=== PATIENT | female | born 1960 | race Caucasian/White ===

== ENCOUNTER 2018-01-28 17:00 | Outpatient (RCR) | payer OTHER, SELFPAY ==
--- NOTE | 2017-12-10 17:24 | HP.PTEVAL ---
Patient's Visit Information ZHAO BELTRAN is a 57 year old F referred to Physical Therapy by Levy MCCURDY with a diagnosis of Kumbar radicuopathy. Date of Evaluation: 12/10/17 Physical Therapist: Clover Cast - Visit Plan Frequency: 2x /Week Duration: 6 Weeks Plan: 2-3X/ week for centralization of symptoms starting with prone lying with pillow under abdomin and progressing extension principle and workin palak postural exercises, lifting techniques, core stability with HEP and modalities PRN - Subjective Subjective: Pt went to the Dr due to burning sensation in L knee and he had her take Advil for 2 weeks and then a steroid for 2 weeks that did not do anything. This is her next step and she has pain in her back pretty much all the time. She was on vacation all week and got a rental car and was having a lot of pain and switched cars and did ok. 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 TOday is her 2nd day back and she has burning sensation in L knee today. She walked a lot on vacation and had a lot less pain. She has no weakness in her legs. She has N&T in B legs. Pt does not sleep well when she cant get comfotable and its ususally her hips. - Pain Back pain Pain Intensity (Out of 10): 4 R leg pain Pain Intensity (Out of 10): 0 L leg pain Pain Intensity (Out of 10): 5 Comment: burning sensation - Objective Gait: walks with a normal gait pattern with slight shift in the trunk away from the L side. Posture. Prone lying X 4 min without a pillow and pt started to have burning across LB and down the L knee. Pronlying with pillow under abdomin: Immed the knee has relieved a little and some burning in the LB. After another 2 min the burning in the back has relieved a little bit. After another 3 min with a pillow under her abdomin she had not back or leg burning or pain. LE MMT: hip flex B 4/5, knee ext B 4/5, B knee flex 4/5, B hip abd 4-/5,. Able to heel and toe raise. Patellar DTR's B 2+/3. +Slump test. -SLR test. Tight gastroc complex B - Goals Goal 1:: I HEP Goal Time Frame: 4-6 Weeks Goal 2:: Centralize symptoms to be able to sit for an hour at work without having leg symptoms Goal Time Frame: 4-6 Weeks Goal 3:: Sit with upright posture during treatment sessions Goal Time Frame: 4-6 Weeks Goal 4:: Return to normal workout without pain Goal Time Frame: 4-6 Weeks - Rehabilitation Potential Rehabilitation Potential: Good - Anticipated Interventions Patient/Client Instruction: Educate patient on: Condition, Plan of Care For the Purpose of:: To decrease pain, To decrease swelling/inflammation, To increase ROM, To improve nutrient delivery to tissue, To improve muscle performance and motor function, To improve ability to perform ADL's, To increase tolerance to activity/condition/position, To improve health of tissue, To increase flexibility/ROM Therapeutic Exercise to Include: Strength training, Body mechanics, Postural training, Flexibilty training, Gait and locomotor training, Passive ROM, Active ROM, Dynamic Lumbar Stabilization, Jeet Exercises For the Purpose of:: To decrease pain, To decrease swelling/inflammation, To increase ROM, To improve nutrient delivery to tissue, To improve muscle performance and motor function, To improve ability to perform ADL's, To increase tolerance to activity/condition/position, To improve health of tissue, To decrease soft tissue restriction, To increase flexibility/ROM Manual Therapy Techniques to Include: Mobilization, Passive ROM, Soft tissue mobilization For the Purpose of:: To increase ROM, To improve nutrient delivery to tissue, To improve muscle performance and motor function, To improve performance and independence with ADL's, To decrease level of supervision to perform tasks IF ES: Yes Cryotherapy (ice pack, ice massage): Yes Thermo therapy (hot pack): Yes Ultrasound (thermal/non thermal): Yes For the Purpose of:: To decrease pain, To decrease swelling/inflammation, To increase ROM, To improve nutrient delivery to tissue Thank you for the opportunity to evaluate your patient. For Medicare and Medicare HMO plans, please review the plan of care and approve it. It will need to be FAXED BACK to us at [phone] for Medicare purposes. Please let me know if there are questions or concerns regarding this plan of care. Physician Signature: Date:
--- NOTE | 2017-12-18 19:17 | HP.PTDCSUM_ITS ---
HP - PT D/C Summary It has been my pleasure to treat ZHAO BELTRAN under orders from CALLI Osorio for the diagnosis of lumbar radicuopathy for a total of 5 visit (s). Discharge Date: Please see the following information for a summary of their discharge status. - Subjective Subjective: Pt had pain all day in the R knee unless she stood up. She has some burning up the dside of her back to her mid thoracic. - Pain Back pain Pain Intensity (Out of 10): 1 R leg pain Pain Intensity (Out of 10): 0 L leg pain Pain Intensity (Out of 10): 4 - Objective Objective/Function: Pt had increase palpable muscular tightness along the R paraspinals - Goals Goal 1:: I HEP Goal 2:: Centralize symptoms to be able to sit for an hour at work without having leg symptoms Goal 3:: Sit with upright posture during treatment sessions Goal 4:: Return to normal workout without pain - Plan Plan: 2-3X/ week for centralization of symptoms starting with prone lying with pillow under abdomin and progressing extension principle and workin palak postural exercises, lifting techniques, core stability with HEP and modalities PRN - D/C Information If there are questions or concerns regarding this patient's physical therapy, please feel free to call me at [phone]. Thank you for the referral of this patient. Sincerely, Clover Cast
--- NOTE | 2018-01-28 17:30 | HP.PTDCSUM ---
HP - PT D/C Summary It has been my pleasure to treat ZHAO BELTRAN under orders from Levy Rocha, for the diagnosis of lumbar radicuopathy for a total of 15 visit(s). Discharge Date: 01/28/18 Please see the following information for a summary of their discharge status. - Subjective Subjective: Pt reports that she thinks that she can come in and do her exercises - Pain Back pain Pain Intensity (Out of 10): 1 R leg pain Pain Intensity (Out of 10): 0 L leg pain Pain Intensity (Out of 10): 0 - Overall Improvement % Improvement: 90 - Objective Objective/Function: Still very tnder lateral paraspinlas on the R t8- L2 area. - Goals Goal 1:: I HEP Goal Progress: Goal Met Goal 2:: Centralize symptoms to be able to sit for an hour at work without having leg symptoms Goal Progress: Goal Met Goal 3:: Sit with upright posture during treatment sessions Goal Progress: Goal Met Goal 4:: Return to normal workout without pain Goal Progress: Goal Met - Plan Plan: DC PT to [facility]. Pt welcome to come back if symptoms come back etc - D/C Information Discharge Comments: DC PT to [facility] If there are questions or concerns regarding this patient's physical therapy, please feel free to call me at [phone]. Thank you for the referral of this patient. Sincerely, Clover Cast
== END 2018-01-28 19:00 | disposition home or self-care (01) ==
LOC: PT 17:00
PROVIDERS: Family Provider Internal Medicine; PCP Internal Medicine; Visit Provider Physician Assistant
DX: M54.16 Radiculopathy, lumbar region (principal)
CPT/HCPCS: 97014; 97110; 97140; 97161; 97530; G0283

== ENCOUNTER 2018-04-21 10:12 | Emergency (ER) | payer OTHER, SELFPAY ==
[2018-04-21 10:20] VITALS: BP 168/72; PULSE 81; RESP 20; TEMP 36.9; O2SAT 99; BMI 20.5
--- NOTE | 2018-04-21 10:37 | ED.DCSUM_ITS ---
- ER Visit Summary Date of Service: 04/21/18 Chief Complaint: Back pain History of Present Illness: The patient is a 57 F who has lumbar back pain. She has had her intermittently for 2 weeks. Pain is in the left lumbar area. It does not radiate to the legs. Is worse with walking and sitting. No numbness or tingling. No bowel or bladder incontinence. She was diagnosed with a bulging disc about 3 months ago. She went to rehab and it felt better. After this current pain is started she went to a chiropractor. She states the pain felt worse. She has spasms in the lower back as well she tried Tylenol extra strength without any relief Physical Examination: Vital signs reviewed. HEENT exam unremarkable. Heart is regular rate and rhythm without murmurs. Lungs are clear to auscultation. Abdomen is soft and nontender. Back is not tender to palpation. Extremities reveal no edema. Skin exam normal. Neurologic exam normal. Test Results: None performed Emergency Department Course and Treatment: Patient will be treated with subcutaneous morphine. The patient may have a bulging disc that has reoccurred. I will treat her with naproxen and prednisone for home. She has a follow-up appointment with [facility] tomorrow. I do not feel the patient requires imaging as she has no trauma to the area Treatment Plan: [] Disposition: Discharge Impression: Lumbar back pain This note was generated with [employer]o dictation software. It may contain incorrect words, spelling, and punctuation that were not noted in review of the chart prior to signing ED Disposition - Plan for ED Patient: Chief Complaint: Back Referrals: Oscar Palacio MD [Primary Care Provider] -
--- NOTE | 2018-04-21 10:38 | ED.DEP ---
ED Disposition - Plan for ED Patient: Disposition: Home or Assisted Living Chief Complaint: Back Instructions: ED Neck Back Pain General Prescriptions: Naproxen [Naprosyn] 500 mg PO BID PRN #20 tab Prednisone [Deltasone] 40 mg PO DAILY #10 tab Referrals: Oscar Palacio MD [Primary Care Provider] -
[2018-04-21] MEDS: oxyCODONE 5 MG Tablet PO (11:31)
== END 2018-04-21 11:41 | disposition home or self-care (01) ==
LOC: ED 10:47
PROVIDERS: Emergency Provider Emergency Medicine; Family Provider Internal Medicine; PCP Internal Medicine
DX: M54.5 Low back pain (principal); M62.830 Muscle spasm of back
CPT/HCPCS: 99283

== ENCOUNTER → 2018-05-20 08:39 | Outpatient (CLI) | payer OTHER, SELFPAY | PROVIDERS: Family Provider Internal Medicine; PCP Internal Medicine; Visit Provider Orthopaedic Surgery | DX: M48.061 Spinal stenosis, lumbar region without neurogenic claudication (principal); Z78.0 Asymptomatic menopausal state; M85.80 Other specified disorders of bone density and structure, unspecified site | CPT/HCPCS: 77080; 78306 ==

== ENCOUNTER → 2018-06-04 16:26 | Outpatient (CLI) | payer OTHER, SELFPAY ==
[2018-06-04 17:12] LABS: Absolute Lymphocyte Count 2.16 X10^3/ul (0.83-4.51); Absolute Neutrophil Count 2.6 X10^3/uL (2.0-7.7); Basophil# 0.02 X10^3/uL; Basophil% 0.4 % (0-1); Eosinophil# 0.08 X10^3/uL; Eosinophils% 1.5 % (0-5); Hematocrit 42.2 % (37-47); Lymphocyte # 2.16 X10^3/ul (4.0); Lymphocyte % 39.6 % (19-41); Mean Corp Hgb Conc 33.2 g/gl (32-36); Mean Corpuscular Hgb 31.7 pg (27.0-32.0); Mean Corpuscular Volume 95.7 fL (81-99); Mean Platelet Vol. 11.7 fl (6.2-12.0); Monocyte# 0.62 X10^3/uL; Monocyte% 11.4 % (0-10); Neutrophil # 2.56 X10^3/uL (2.7-7.7); Neutrophil % 46.9 % (47-70); Platelet Count 266 K/mm3 (150-450); RBC Distribution Width CV 13.3 % (11.6-14.6); RBC Distribution Width SD 45.3 fl (35.1-43.9); Red Blood Count 4.41 M/mm3 (4.2-5.4); White Blood Count 5.5 K/mm3 (4.4-11.0)
[2018-06-04 17:24] LABS: POSITIVE COUNT NO; POSITIVE DIFFERENTIAL NO; POSITIVE MORPHOLOGY NO
[2018-06-04 17:45] LABS: Erythrocyte Sedimentation Rate 14 mm/hr (0-30)
[2018-06-04 17:49] LABS: Vitamin D,25 Hydroxy 76.1 ng/mL (29.95-100.01)
[2018-06-06 16:09] LABS: PROEL- A/G Ratio 1.4 (0.7-1.7); PROEL- Albumin 4.1 g/dL (2.9-4.4); PROEL- Alpha-1 Globulin 0.3 g/dL (0.0-0.4); PROEL- Alpha-2 Globulin 0.8 g/dL (0.4-1.0); PROEL- Gamma Globulin 0.9 g/dL (0.4-1.8); PROEL- TOTAL PROTEIN 7.1 g/dL (6.0-8.5)
== END ==
PROVIDERS: Family Provider Internal Medicine; PCP Internal Medicine; Visit Provider Orthopaedic Surgery
DX: M48.061 Spinal stenosis, lumbar region without neurogenic claudication (principal)
CPT/HCPCS: 36415; 82306; 84165; 85025; 85652; 86141

== ENCOUNTER → 2018-11-03 08:12 | Outpatient (CLI) | payer OTHER, SELFPAY ==
--- NOTE | 2018-11-03 08:13 | RAD_ITS ---
STUDY: X-RAY - LEFT HIP REASON FOR EXAM: Female, 57 years old. Pain. TECHNIQUE: 2 views of the hip. COMPARISON: None. FINDINGS: Normal femoral head, neck, intertrochanteric region and visualized proximal femur. Normal acetabulum. Normal hip joint. Normal visualized superior and inferior pubic rami and ischial tuberosities. Calcified phleboliths in the left hemipelvis. RAD/HIP, UNI W/ Pelvis 2-3 Views IMPRESSION: Normal x-ray examination of the hip. Electronically Signed: Duarte Lara MD at 14:44 EST , Service support ,
== END ==
PROVIDERS: Family Provider Internal Medicine; PCP Internal Medicine; Referring Provider Orthopaedic Surgery; Visit Provider Orthopaedic Surgery
DX: M25.552 Pain in left hip (principal)
CPT/HCPCS: 73502

== ENCOUNTER 2018-12-17 17:00 | Outpatient (RCR) | payer OTHER, SELFPAY ==
--- NOTE | 2018-11-05 18:03 | HP.PTEVAL_ITS ---
Patient's Visit Information ZHAO BELTRAN is a 57 year old F referred to Physical Therapy by Magdiel Gomez DO with a diagnosis of sacroilitis. Date of Evaluation: 11/05/18 Physical Therapist: ANA Cornejo - Visit Plan Frequency: 2x /Week Duration: 6 Weeks Plan: 2X/ week for 4-6 weeks for MT for leg length discrepency and then core stability and pelvic stability with HEP and may use US and MT to the L SI if really painful especially beofre mobiization with HEP - Subjective Findings: Still having problems with back... been going on for close to a year now.... in April was in ER with muscle spasms on that side of her back... they think that it is her SI joint on the L side. 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 Her current symptoms... points to L SI area. Worse standing in one postion and then tightens up across the LB. The only way to loosen it up is to keep moving. Pt has the numbness in her knees that she has once in awhile (about once a week and lasts until she gets up and moves). It always happens in a sitting position. They took an x-ray of hip area and has had x-ray of back... those were all negative. She has a slight bulging disc (L4) but said that should not be causing an issues. No issue on the stairs... 20 minutes on the TM at L4 and she thinks that that helps it. She can not sleep on either side cause it bothers it. She has popping in her LB with standing and laying on back and extending legs... - Pain L sided LB Pain Intensity (Out of 10): 5 Pain Intensity Range: 10 - Objective Gait: normal gait pattern maybe a slight hip drop on the L. LE MMT: B hip flex 4-/5, B hip abd 4/5, B hip ext 4-/5, B knee flex 4/5 and B knee ext 4/5. Pt is able to walk on heels and toes but has slight increased L sided SI pain with walking on heels on the L. R leg was longer in supine (approx 1/2 inch). Shot gun technique did not change leg length but contraction of L hip flexor and R Hamstring make B LE's equal in length. Pt had a hard time hold PT in supine... used the blood pressure stabilizer to deomnstrate proper form with PT for HEP - Goals Goal 1:: I HEP Goal Time Frame: 4-6 Weeks Goal 2:: Abolish SI pain Goal Time Frame: 4-6 Weeks Goal 3:: Increase core stability to be able to do PT with leg lifts with very li ttle mobility of the PT Goal Time Frame: 4-6 Weeks - Rehabilitation Potential Rehabilitation Potential: Good - Anticipated Interventions Patient/Client Instruction: Educate patient on: Condition, Plan of Care For the Purpose of:: To decrease pain, To decrease swelling/inflammation, To improve nutrient delivery to tissue, To improve muscle performance and motor function, To improve ability to perform ADL's, To increase tolerance to activity/condition/position, To improve performance and independence with ADL's, To decrease soft tissue restriction, To increase flexibility/ROM Therapeutic Exercise to Include: Strength training, Postural training, Flexibilty training, Neuromotor development, Active ROM, Dynamic Lumbar Stabilization For the Purpose of:: To decrease pain, To improve muscle performance and motor function, To increase tolerance to activity/condition/position, To improve performance and independence with ADL's, To improve health of tissue, To decrease soft tissue restriction, To increase flexibility/ROM Manual Therapy Techniques to Include: Mobilization, Passive ROM, Soft tissue mobilization For the Purpose of:: To decrease pain Cryotherapy (ice pack, ice massage): Yes Ultrasound (thermal/non thermal): Yes For the Purpose of:: To decrease pain, To decrease swelling/inflammation, To increase ROM, To improve nutrient delivery to tissue Thank you for the opportunity to evaluate your patient. For Medicare and Medicare HMO plans, please review the plan of care and approve it. It will need to be FAXED BACK to us at [phone] for Medicare purposes. For Medicare only, by signing this I certify the plan of care. Please let me know if there are questions or concerns regarding this plan of care. Physician Signature: Date:
--- NOTE | 2018-12-17 17:28 | HP.PTDCSUM_ITS ---
HP - PT D/C Summary It has been my pleasure to treat ZHAO BELTRAN under orders from Magdiel Gomez DO, for the diagnosis of sacroilitis for a total of 7 visit(s). Discharge Date: 12/17/18 Please see the following information for a summary of their discharge status. - Subjective Subjective: The only problem that she is having is that when she gets up in the morning she is getting some stiffness and her back tightens up in her back while she is getting ready in the morning. SHe has been sleeping with a pillow under her knees and she feels better in the morning. Then throughout the day she does not have any pain. Benito (hand outs) has given her 3 sets of exercises to do and she comes in here 3X/ week. - Pain L sided LB Pain Intensity (Out of 10): 0 - Overall Improvement % Improvement: 100 - Objective Objective/Function: Pt was able to have full bridge and able to keep hips level while lifting legs. - Goals Goal 1:: I HEP Goal Progress: Goal Met Goal 2:: Abolish SI pain Goal Progress: Goal Met Goal 3:: Increase core stability to be able to do PT with leg lifts with very little mobility of the PT Goal Progress: Goal Met - Plan Plan: DC PT to I HEP and [facility]. - D/C Information Discharge Comments: DC PT to [facility] If there are questions or concerns regarding this patient's physical therapy, margaux bacon feel free to call me at [phone]. Thank you for the referral of this patient. Sincerely, Clover Cast, ANA
== END 2018-12-17 19:00 | disposition home or self-care (01) ==
LOC: PT 17:00
PROVIDERS: Family Provider Internal Medicine; PCP Internal Medicine; Referring Provider Orthopaedic Surgery; Visit Provider Orthopaedic Surgery
DX: M46.1 Sacroiliitis, not elsewhere classified (principal)
CPT/HCPCS: 97110; 97161; 97530

== ENCOUNTER → 2019-02-10 06:41 | Outpatient (CLI) | payer OTHER, SELFPAY ==
[2019-02-10 08:55] LABS: AST(SGOT) 37 U/L (15-37); Alanine Aminotransfer ALT/SGPT 52 U/L (13-56); Albumin, Serum 3.7 g/dL (3.2-5.0); Alkaline Phosphatase 86 U/L (45-117); Bilirubin, Direct 0.15 mg/dL (0.00-0.30); Cholesterol 221 mg/dL (200); Globulin 3.8 g/dL (2.2-4.2); High Density Lipoprotein 77 mg/dL; Protein, Total 7.5 g/dL (6.4-8.2); Triglycerides 124 mg/dL; Very Low Density Lipoprotein 25 mg/dL (5-40)
== END ==
PROVIDERS: Family Provider Internal Medicine; PCP Internal Medicine; Referring Provider Internal Medicine Cardiovascular Disease; Visit Provider Internal Medicine Cardiovascular Disease
DX: E78.5 Hyperlipidemia, unspecified (principal)
CPT/HCPCS: 36415; 80061; 80076

== ENCOUNTER → 2019-06-19 07:39 | Outpatient (CLI) | payer OTHER, SELFPAY ==
[2019-05-11 15:55] VITALS: BMI 18.1
[2019-06-19 08:28] LABS: Color, Urine Yellow (Yellow); Glucose, Dipstick Normal (Normal); Ketone-Dipstick Negative (Negative); Leukocyte Esterase-Dipstick Negative /ul (Negative); Nitrite-Dipstick Negative (Negative); Occult Blood-Urine Negative /ul (Negative); Protein-Dipstick Negative (Negative); Urine Bilirubin Dipstick Negative (Negative); Urine Clarity Sl. Cloudy (Clear); Urine Urobilinogen Normal (Normal)
[2019-06-19 08:30] LABS: Absolute Lymphocyte Count 1.94 X10^3/uL (0.83-4.51); Absolute Neutrophil Count 2.8 X10^3/uL (2.0-7.7); Basophil# 0.03 X10^3/uL; Basophil% 0.6 % (0-1); Eosinophils% 1.8 % (0-5); Hematocrit 43.4 % (37-47); Hemoglobin 14.4 g/dL (12.0-15.0); Lymphocyte # 1.94 X10^3/ul (4.0); Lymphocyte % 35.7 % (19-41); Mean Corp Hgb Conc 33.2 g/dL (32-36); Mean Corpuscular Volume 96.4 fL (81-99); Mean Platelet Vol. 11.2 fl (6.2-12.0); Monocyte# 0.56 X10^3/uL; Monocyte% 10.3 % (0-10); NRBC Flagged by Analyzer 0 % (0-5); Neutrophil # 2.79 X10^3/uL (2.7-7.7); Neutrophil % 51.4 % (47-70); Platelet Count 209 K/mm3 (150-450); RBC Distribution Width CV 12.5 % (11.6-14.6); RBC Distribution Width SD 44.6 fl (35.1-43.9); White Blood Count 5.4 K/mm3 (4.4-11.0)
[2019-06-19 08:33] LABS: Erythrocyte Sedimentation Rate 6 mm/hr (0-30)
[2019-06-19 08:35] LABS: Protein:Creat Ratio 117 mg/g CRE (0-200)
[2019-06-19 08:56] LABS: ALB/GLOB Ratio 1.3 RATIO (0.9-2.4); AST(SGOT) 24 U/L (15-37); Alanine Aminotransfer ALT/SGPT 27 U/L (13-56); Albumin, Serum 3.9 g/dL (3.2-5.0); Alkaline Phosphatase 88 U/L (45-117); Anion Gap 6 (5-15); BUN 16 mg/dL (7-18); BUN/Creat Ratio 20.4 RATIO (10-20); Bilirubin, Direct 0.21 mg/dL (0.00-0.30); CRP < 2.90 mg/L (0.0-3.0); Calcium,Total 8.9 mg/dL (8.5-10.1); Chloride 108 mmol/L (98-107); Cholesterol 164 mg/dL (200); Creatinine, Serum 0.78 mg/dL (0.55-1.02); EST Glomerular Filtration Rate 79 mL/min (>60); Est Glom Filt Rate - Afr Amer 96 mL/min (>60); Globulin 3.1 g/dL (2.2-4.2); Glucose 93 mg/dL (74-106); High Density Lipoprotein 89 mg/dL; Potassium 3.6 mmol/L (3.5-5.1); Sodium Level 143 mmol/L (136-145); Triglycerides 58 mg/dL; Very Low Density Lipoprotein 12 mg/dL (5-40)
[2019-06-19 09:31] LABS: EXAGEN MAILED SPECIMEN
[2019-06-24 13:17] LABS: HLA B27 Negative (.)
== END ==
PROVIDERS: Family Provider Internal Medicine; PCP Internal Medicine; Referring Provider Internal Medicine Cardiovascular Disease; Visit Provider Internal Medicine Cardiovascular Disease
DX: M35.00 Sjogren syndrome, unspecified (principal); M18.11 Unilateral primary osteoarthritis of first carpometacarpal joint, right hand; R76.8 Other specified abnormal immunological findings in serum; E78.00 Pure hypercholesterolemia, unspecified
CPT/HCPCS: 36415; 80053; 80061; 81002; 81374; 82248; 82570; 84156; 85025; 85652; 86140

== ENCOUNTER → 2019-07-08 16:29 | Outpatient (CLI) | payer OTHER, SELFPAY ==
[2019-05-11 15:55] VITALS: BMI 18.1
--- NOTE | 2019-07-08 16:33 | RAD_ITS ---
STUDY: X-RAY - PELVIS REASON FOR EXAM: Female, 58 years old. Osteoarthritis. TECHNIQUE: One view of the pelvis was obtained. COMPARISON: None. FINDINGS: There is a non-specific bowel gas pattern. There are multiple calcified phleboliths. There is narrowing with cortical sclerosis and osteophyte formation of the sacroiliac joint consistent with mild degenerative osteoarthritic changes. Normal visualized bilateral superior and inferior pubic rami. There are mild degenerative changes of the pubic symphysis with articular narrowing and sclerosis. Normal ischial tuberosities. Normal visualized right femoral head. Normal right acetabulum. There is mild articular joint space narrowing of the right hip. Normal visualized left femoral head. Normal left acetabulum. There is mild articular joint space narrowing of the left hip. RAD/Pelvis 1 or 2 Views IMPRESSION: Mild, multilevel degenerative disease as described above. Electronically Signed: Ana Carmona MD at 2:05 EDT , Service support ,
== END ==
PROVIDERS: Family Provider Internal Medicine; PCP Internal Medicine; Referring Provider Internal Medicine Rheumatology; Visit Provider Internal Medicine Rheumatology
DX: R76.8 Other specified abnormal immunological findings in serum (principal); M18.11 Unilateral primary osteoarthritis of first carpometacarpal joint, right hand; E78.5 Hyperlipidemia, unspecified; M35.00 Sjogren syndrome, unspecified
CPT/HCPCS: 72170

== ENCOUNTER → 2020-05-05 07:12 | Outpatient (CLI) | payer OTHER, SELFPAY ==
[2019-05-11 15:55] VITALS: BMI 18.1
[2020-05-05 08:22] LABS: AST(SGOT) 39 U/L (15-37); Alanine Aminotransfer ALT/SGPT 55 U/L (13-56); Albumin, Serum 3.9 g/dL (3.2-5.0); Alkaline Phosphatase 92 U/L (45-117); Bilirubin, Direct 0.17 mg/dL (0.00-0.30); Cholesterol 176 mg/dL (200); Globulin 3.6 g/dL (2.2-4.2); High Density Lipoprotein 92 mg/dL; Protein, Total 7.5 g/dL (6.4-8.2); Triglycerides 70 mg/dL; Very Low Density Lipoprotein 14 mg/dL (5-40)
== END ==
PROVIDERS: PCP Internal Medicine; Referring Provider Internal Medicine Cardiovascular Disease; Visit Provider Internal Medicine Cardiovascular Disease
DX: E78.5 Hyperlipidemia, unspecified (principal)
CPT/HCPCS: 36415; 80061; 80076

== ENCOUNTER → 2020-06-02 10:53 | Outpatient (CLI) | payer OTHER, SELFPAY ==
[2020-05-11 15:32] VITALS: BMI 18.3
--- NOTE | 2020-06-02 10:54 | ECHOD_ITS ---
Reason For Study: MUIRMUR Procedure This was a 2D Doppler, Color Flow transthoracic echocardiogram. The exam was of adequate technical quality. Exam performed in department. Left Ventricle Normal LV size. Left ventricular systolic function is normal. The estimated ejection fraction is 60 %. Post operative septal motion. There is evidence of diastolic dysfunction. No regional wall motion abnormalities noted. Right Ventricle Normal RV size. Normal systolic function. Atria Normal left atrium. Normal right atrium. No doppler evidence for ASD. Mitral Valve Anterior leaflet diffuse mitral valve thickening. The mitral valve chordae are thickened and/or calcified. Mild mitral valve stenosis. An annuloplasty ring is noted in the mitral position. Trivial transvalvular insufficiency of the mitral valve. Tricuspid Valve Mild to moderate (1-2+) eccentric tricuspid valve insufficiency. Right ventricular systolic pressure estimated to be 30 mmHg. An annuloplasty ring is noted in the tricuspid position. Aortic Valve Trisinus/trileaflet aortic valve. Normal aortic valve. Pulmonic Valve The pulmonic valve is not well visualized. Great Vessels The aortic root is not well visualized. Pericardium/Pleural No pericardial effusion. MMode/2D Measurements & Calculations LVIDd: 4.1 cm IVSd: 0.53 cm LVOT diam: 2.0 cm LVIDs: 2.7 cm LVPWd: 0.56 cm LVOT area: 3.3 cm2 RVDd: 3.7 cm FS: 34.5 % MVA(traced): 2.6 cm2 LAV(MOD-bp): 53.7 ml LA A4 area: 17.4 cm2 LAV(MOD-bp) Indexed: 35.8 ml/m2 LAV(MOD-sp2): 59.8 ml LAV(MOD-sp4): 47.6 ml LA dimension(2D): 3.8 cm RA A4 area: 14.3 cm2 Doppler Measurements & Calculations MV E max iftikhar: 169.4 cm/sec Lat Peak E' Iftikhar: 5.4 cm/sec Med Peak E' Iftikhar: 3.7 cm/sec MV A max iftikhar: 98.5 cm/sec E/E' lat: 31.6 E/E' med: 46.0 MV E/A: 1.7 MV V2 max: 164.5 cm/sec Ao V2 max: 93.3 cm/sec LV V1 max: 87.8 cm/sec MV max P.8 mmHg Ao max P.5 mmHg LV V1 max P.1 mmHg MV V2 mean: 76.6 cm/sec Ao V2 mean: 68.6 cm/sec LV V1 mean P.7 mmHg MV mean P.0 mmHg Ao mean P.0 mmHg LV V1 mean: 63.3 cm/sec MV V2 VTI: 61.2 cm Ao V2 VTI: 21.6 cm LV V1 VTI: 19.8 cm MVA(VTI): 1.1 cm2 AAN(I,D): 3.0 cm2 ANA(V,D): 3.1 cm2 SV(LVOT): 65.1 ml TV V2 max: 111.1 cm/sec PA V2 max: 76.9 cm/sec TV max P.0 mmHg TV V2 mean: 59.8 cm/sec TV mean P.7 mmHg TR max iftikhar: 260.0 cm/sec MV P1/2t-pr_phl: 114.1 msec TR max P.0 mmHg Interpretation Summary Left ventricular systolic function is normal. The estimated ejection fraction is 60 %. Post operative septal motion. An annuloplasty ring is noted in the mitral position. Anterior leaflet diffuse mitral valve thickening. The mitral valve chordae are thickened and/or calcified. Mild mitral valve stenosis. Trivial transvalvular insufficiency of the mitral valve. An annuloplasty ring is noted in the tricuspid position. Mild to moderate (1-2+) eccentric tricuspid valve insufficiency. Right ventricular systolic pressure estimated to be 30 mmHg. There is evidence of diastolic dysfunction. Ordering Physician: Germain Villanueva Referring Physician: Oscar Palacio M.D. Performed By: Sofi Craig, ROSS, RVT
== END ==
PROVIDERS: PCP Internal Medicine; Referring Provider Internal Medicine Cardiovascular Disease; Visit Provider Internal Medicine Cardiovascular Disease
DX: R01.1 Cardiac murmur, unspecified (principal); E78.5 Hyperlipidemia, unspecified; Z98.890 Other specified postprocedural states
CPT/HCPCS: 93306

== ENCOUNTER → 2020-08-21 | Outpatient (CLI) | payer OTHER, SELFPAY ==
[2020-08-21 10:56] VITALS: BMI 17.7
== END | disposition home or self-care (01) ==
PROVIDERS: PCP Internal Medicine; Referring Provider Physician Assistant Medical; Visit Provider Physician Assistant Medical
DX: U07.1 COVID-19 (principal)
CPT/HCPCS: 87635; U0003

== ENCOUNTER 2021-05-11 16:30 | Outpatient (RCR) | payer OTHER, SELFPAY ==
[2021-02-24 13:21] VITALS: BMI 18.3
--- NOTE | 2021-03-02 19:02 | HP.PTEVAL_ITS ---
Patient's Visit Information ZHAO BELTRAN is a 60 year old F referred to Physical Therapy by Dr. Magdiel Gomez DO with a diagnosis of R trocanteric bursitis. Date of Evaluation: 03/02/21 Physical Therapist: Gabriel Luciano, PT, ATC - Visit Plan Frequency: 2-3x /Week Duration: 2-4 Weeks Plan: R LE stretching (IT band and HS's) foam roller, stick rollout, strengthening, bike, and HEP - Subjective Pt reports her R hip has been sore for approximately 3 months. Pt reports she has been adamantly working out here at [employer] and thinks this may have been the cause. Pt reports her pain is located on the lateral aspect of her R hip and will extend to the knee when the pain is bad. Pt notes she does have some LBP. Pt reports the pain mostly occurs when she performs hip abd ROM. Pt notes her pain is very bad with getting out of a car. Pt reports she had a cortizone injection 1 day ago which has helped with her knee pain, but has not influenced the hip at this time. No tingling or numbness in R LE. Pt notes she is unable to lay on her R side at night, resulting in sleep difficulty. Pt notes difficulty with pulling weeds secondary to pain. Pt reports her pain at rest is 0/10, increases to 9/10 at worst. - Pain R hip pain Pain Intensity (Out of 10): 0 Pain Intensity Range: 9 - Objective Neuro: B LE sensation is WNL to light touch. B patellar reflex 3/3. Palpation: Pt is directly sore on the R greater trochanteric bursa region, and throughout the districution of the IT band. ROM: R hip is moderately limited when compared bilaterally. All other motions are WFL at this time. MMT: B LE's are grossly 4+/5 throughout. Flexibility: Pt is moderately limited with HS/ITband flexibility (lagging 35 degrees ext) - Goals Goal 1:: Decrease R hip pain x 50% to aid with sleep Goal Time Frame: 2-4 Weeks Goal 2:: Increase R LE flexibility x 1 grade to aid with decreasing pain Goal Time Frame: 2-4 Weeks Goal 3:: Increase R hip strength to 5/5 throughout to aid with IADL's Goal Time Frame: 2-4 Weeks Goal 4:: I with HEP Goal Time Frame: 2-4 Weeks - Rehabilitation Potential Physical Therapy Diagnosis: Pt has R hip pain, weakness, and limited flexibility secondary to R hip bursitis Rehabilitation Potential: Good - Anticipated Interventions Patient/Client Instruction: Educate patient on: Condition, Plan of Care For the Purpose of:: To improve self management Therapeutic Exercise to Include: Strength training, Flexibilty training, Active ROM, Dynamic Lumbar Stabilization For the Purpose of:: To decrease pain, To increase ROM, To improve muscle performance and motor function Cryotherapy (ice pack, ice massage): Yes For the Purpose of:: To decrease pain Thank you for the opportunity to evaluate your patient. For Medicare and Medicare HMO plans, please review the plan of care and approve it. It will need to be FAXED BACK to us at [phone] for Medicare purposes. For Medicare only, by signing this I certify the plan of care. Please let me know if there are questions or concerns regarding this plan of care. Physician Signature:_ Date:
--- NOTE | 2021-05-11 17:00 | HP.PTREVAL ---
Dr. Magdiel Gomez, DO, It has been my pleasure to treat ZHAO BELTRAN over the last 9 visits for R trocanteric bursitis. Please see the progress note below for an update on the physical therapy plan of care! Subjective: I have had a pretty good week Objective/Function: R hip pain is 0/10. R LE strength is. R LE sflexibility has imptroved to WFL compared bilaterally. Pt is I with HEP Plan Plan: F/U or DC in 4 weeks Balance/Gait/Functional tests - Balance/Special Test Scores Lower Extremity Functional Score: 74 Goals Goal 1:: Decrease R hip pain x 50% to aid with sleep Goal Time Frame: 2-4 Weeks Goal Progress: Goal Met Goal 2:: Increase R LE flexibility x 1 grade to aid with decreasing pain Goal Time Frame: 2-4 Weeks Goal Progress: Goal Met Goal 3:: Increase R hip strength to 5/5 throughout to aid with IADL's Goal Time Frame: 2-4 Weeks Goal Progress: Goal Met Goal 4:: I with HEP Goal Time Frame: 2-4 Weeks Goal Progress: Goal Met Anticipated Interventions Patient/Client Instruction: Educate patient on: Condition, Plan of Care For the Purpose of:: To improve self management Therapeutic Exercise to Include: Strength training, Flexibilty training, Active ROM, Dynamic Lumbar Stabilization For the Purpose of:: To decrease pain, To increase ROM, To improve muscle performance and motor function Cryotherapy (ice pack, ice massage): Yes For the Purpose of:: To decrease pain Please do not hesitate to contact me at [phone] by phone or if you have questions or concerns regarding this new plan of care! Sincerely, Gabriel Luciano, PT, ATC
--- NOTE | 2021-07-21 14:53 | HP.PT.NRP ---
ZHAO BELTRAN was seen in my office for initial evaluation on 03/02/21. The following Plan of Care was established for this patient: Initial Frequency: 2-3x /Week Initial Duration: 2-4 Weeks Patient/Client Instruction: Educate patient on: Condition, Plan of Care For the Purpose of:: To improve self management Therapeutic Exercise to Include: Strength training, Flexibilty training, Active ROM, Dynamic Lumbar Stabilization For the Purpose of:: To decrease pain, To increase ROM, To improve muscle performance and motor function Cryotherapy (ice pack, ice massage): Yes For the Purpose of:: To decrease pain This patient was last seen in our office . Pertinent comments regarding their Physical therapy will appear below: Pt was treated for 9 PT visits secondary to R hip pain through the date of 05/11/21. Pt has not returned through todays date and is discontinued at this time. At this point I will be discontinuing this patient from physical therapy. I would be happy to see this patient again in the future if found appropriate by the physician. Thank you! Gabriel Luciano, PT, ATC Balance/Gait/Functional tests - Balance/Special Test Scores Lower Extremity Functional Score: 74
== END 2021-05-11 19:00 | disposition home or self-care (01) ==
LOC: PT 16:30
PROVIDERS: PCP Internal Medicine; Referring Provider Orthopaedic Surgery; Visit Provider Orthopaedic Surgery
DX: M70.61 Trochanteric bursitis, right hip (principal); M76.31 Iliotibial band syndrome, right leg
CPT/HCPCS: 97014; 97110; 97140; 97161; 97164; G0283

== ENCOUNTER → 2021-06-06 14:46 | Outpatient (CLI) | payer OTHER, SELFPAY ==
--- NOTE | 2021-06-06 14:47 | ECHOD_ITS ---
Reason For Study: Valve Repair Procedure This was a 2D Doppler, Color Flow transthoracic echocardiogram. The exam was of adequate technical quality. Exam performed in department. Left Ventricle Normal LV size. Left ventricular systolic function is normal. The estimated ejection fraction is 60 %. There is evidence of diastolic dysfunction. Right Ventricle Normal RV size. Normal systolic function. Atria The left atrium is mildly enlarged. Normal right atrium. No doppler evidence for ASD. Mitral Valve Anterior leaflet diffuse mitral valve thickening. Mitral valve doming/Hockey Sticking. The mitral valve chordae are thickened and/or calcified. An annuloplasty ring is noted in the mitral position. Trivial transvalvular insufficiency of the mitral valve. Tricuspid Valve Moderate (2+) eccentric tricuspid valve insufficiency. Right ventricular systolic pressure estimated to be 36 mmHg. An annuloplasty ring is noted in the tricuspid position. Aortic Valve Trisinus/trileaflet aortic valve. Normal aortic valve. Pulmonic Valve The pulmonic valve is not well visualized. Great Vessels The aortic root is not well visualized. Pericardium/Pleural No pericardial effusion. MMode/2D Measurements & Calculations LVIDd: 4.4 cm IVSd: 0.72 cm LA dimension: 3.7 cm LVIDs: 2.1 cm LVPWd: 0.61 cm FS: 52.0 % LAV(MOD-bp): 49.5 ml LA A4 area: 18.3 cm2 RA A4 area: 11.9 cm2 LAV(MOD-bp) Indexed: 33.0 ml/m2 LAV(MOD-sp2): 43.9 ml LAV(MOD-sp4): 54.2 ml Time Measurements MV dec time: 0.48 sec Doppler Measurements & Calculations MV E max iftikhar: 168.8 cm/sec Lat Peak E' Iftikhar: 6.3 cm/sec Med Peak E' Iftikhar: 6.2 cm/sec MV A max iftikhar: 107.3 cm/sec E/E' lat: 27.0 E/E' med: 27.2 MV E/A: 1.6 MV V2 max: 229.2 cm/sec MV P1/2t max iftikhar: 228.2 cm/sec Ao V2 max: 118.1 cm/sec MV max P.0 mmHg MV P1/2t: 104.2 msec Ao max P.6 mmHg MV V2 mean: 112.0 cm/sec MV dec slope: 641.7 cm/sec2 MV mean P.2 mmHg MVA(P1/2t): 2.1 cm2 MV V2 VTI: 75.4 cm LV V1 max: 86.3 cm/sec TR max iftikhar: 287.5 cm/sec LV V1 max P.0 mmHg TR max P.1 mmHg ECHO/Echo Complete Interpretation Summary Left ventricular systolic function is normal. The estimated ejection fraction is 60 %. The left atrium is mildly enlarged. An annuloplasty ring is noted in the mitral position. Anterior leaflet diffuse mitral valve thickening. Mitral valve doming/Hockey Sticking The mitral valve chordae are thickened and/or calcified. Trivial transvalvular insufficiency of the mitral valve. An annuloplasty ring is noted in the tricuspid position. Moderate (2+) eccentric tricuspid valve insufficiency. Right ventricular systolic pressure estimated to be 36 mmHg. There is evidence of diastolic dysfunction. Ordering Physician: Germain Villanueva Referring Physician: Oscar Palacio M.D. Performed By: Bear Pak RCS
== END ==
PROVIDERS: PCP Internal Medicine; Referring Provider Internal Medicine Cardiovascular Disease; Visit Provider Internal Medicine Cardiovascular Disease
DX: Z98.890 Other specified postprocedural states (principal)
CPT/HCPCS: 93306

== ENCOUNTER → 2021-06-09 07:13 | Outpatient (CLI) | payer OTHER, SELFPAY ==
[2021-06-09 08:39] LABS: AST(SGOT) 37 U/L (15-37); Alanine Aminotransfer ALT/SGPT 50 U/L (13-56); Albumin, Serum 3.7 g/dL (3.2-5.0); Alkaline Phosphatase 89 U/L (45-117); Bilirubin, Direct 0.21 mg/dL (0.00-0.30); Cholesterol 188 mg/dL (200); Globulin 3.8 g/dL (2.2-4.2); High Density Lipoprotein 89 mg/dL; Protein, Total 7.5 g/dL (6.4-8.2); Triglycerides 61 mg/dL; Very Low Density Lipoprotein 12 mg/dL (5-40)
== END ==
PROVIDERS: PCP Internal Medicine; Referring Provider Internal Medicine Cardiovascular Disease; Visit Provider Internal Medicine Cardiovascular Disease
DX: E78.5 Hyperlipidemia, unspecified (principal)
CPT/HCPCS: 36415; 80061; 80076

== ENCOUNTER 2022-03-15 07:00 | Outpatient (RCR) | payer OTHER, SELFPAY ==
--- NOTE | 2022-02-22 07:46 | HP.PTEVAL_ITS ---
Patient's Visit Information ZHAO BELTRAN is a 61 year old F referred to Physical Therapy by RACHEL Tariq with a diagnosis of Right Shoulder Impingement. Date of Evaluation: 02/22/22 Physical Therapist: Enid Marroquin DPT - Visit Plan Frequency: 2x /Week Duration: 4 Weeks Plan: Focus on scapular s/s, RTC strength- US as modality. HEP Given IE: Postural Education, Scapular retraction, mid row BTB, IR with BTB, bilateral ER with OTB - Subjective Right shoulder pain 4 months ago- pulsing pain in the deltoid- continued to progress and she went to see the PA. She has no pain in the shoulder just in the tip of the deltoid. The pain is there when she uses her arms overhead, reaching out to the side and weights. Has had radiating pain burning sensation to the elbow. 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 No CRUMP, blurred vision or dizziness. Worst: 8/10. Any movement gives her dully and achy pain. Eases: heat Best: 0/10. PA put her on Meloxicam but she was unable to take it- did not have an injection. Right hand dominate. 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 Does not bother her during the day. Worse during the evening/night hours. Sleep: disturbed- all over sleeper- discomfort if she lays on the right shoulder. Heal th Point: ellip, rowing machine, machines overhead press, stretching (2-3x a week). She is pretty active always. 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 PMHx/Meds: no changes since saw ortho. - Objective Posture: Fh, RS- can correct with verbal and tactile cues but does not maintain. Gait: no deviation noted- good arm swing and trunk rotation. Palpation: tender along bicipital groove. ROM: WFL in all planes of the cervical- pain with end range flexion and abduction of the UE Strength: Scap: fair minus, Shoulder: 4+/5 throughout, Elbow: 4/5, Wrist: 5/5, Blasting Entry Specialist: equal - Special Tests R Shoulder Empty Can - SS: Positive R Shoulder Belly Press - SupScap: Positive R Shoulder Neer - Impingement: Positive R Shoulder Stauffer Jeferson - Impingement: Positive - Balance/Special Test Scores Quick DASH Score: 25.0000 - Goals Goal 1:: Patient will be I with HEP and progression Goal Time Frame: 4-6 Weeks Goal 2:: Patient will maintain proper posture t/o tx session to demo increased scap s/s Goal Time Frame: 4-6 Weeks Goal 3:: Patient will sleep through the night for 1 week without pain Goal Time Frame: 4-6 Weeks Goal 4:: Patient will report 80% improvement Goal Time Frame: 4-6 Weeks - Rehabilitation Potential Physical Therapy Diagnosis: Patient presents with hypomobility- she has decreased UE and scapular s/s, pain free ROM, and muscular endurance leading to poor posture and increased pain with ADL's. Rehabilitation Potential: Good - Anticipated Interventions Patient/Client Instruction: Educate patient on: Benefits of Fitness Program Therapeutic Exercise to Include: Strength training, Endurance training, Balance training, Agility training, Body mechanics, Postural training, Neuromotor development, Dynamic Lumbar Stabilization, Scapular Strength/Stabilization For the Purpose of:: To improve muscle performance and motor function TENS: Yes Cryotherapy (ice pack, ice massage): Yes Thermo therapy (hot pack): Yes Ultrasound (thermal/non thermal): Yes Thank you for the opportunity to evaluate your patient. For Medicare and Medicare HMO plans, please review the plan of care and approve it. It will need to be FAXED BACK to us at [phone] for Medicare purposes. For Medicare only, by signing this I certify the plan of care. Please let me know if there are questions or concerns regarding this plan of care. Physician Signature: Date:
--- NOTE | 2022-03-15 07:24 | HP.PTREVAL_ITS ---
RACHEL Tariq, It has been my pleasure to treat ZHAO BELTRAN over the last 7 visits for Right Shoulder Impingement. Please see the progress note below for an update on the physical therapy plan of care! Subjective: Patient reports that she is doing PT and everything over head really flares her up. The hurt is anywhere from the elbow and now its starting to get into the neck/shoulder. The pain is only sometimes, but its constant when she puts on a jacket or coat. She also has pain and is unable to slate picker her grandchildren. She has not had an injection. She does MH on her shoulder but she can't find anything to take for inflammation- she tried Meloxicam but it tore her stomach up. Objective/Function: No significant changes since IE. Posture: Fh, RS- can correct with verbal and tactile cues but does not maintain. Gait: no deviation noted- good arm swing and trunk rotation. Palpation: tender along bicipital groove. ROM: WFL in all planes of the cervical- pain with end range flexion and abduction of the UE Strength: Scap: fair minus, Shoulder: 4+/5 throughout, Elbow: 4/5, Wrist: 5/5, Violent Crimes Detective: equal. - Special Tests. R Shoulder Empty Can - SS: Positive. R Shoulder Belly Press - SupScap: Positive. R Shoulder Neer - Impingement: Positive. R Shoulder Stauffer Jeferson - Impingement: Positive Plan Plan: Patient to return to MD for further evaluation as her objective and subjective measures have not made significant progress over the last 3 weeks. Will hold chart pending decision from MD. Balance/Gait/Functional tests - Balance/Special Test Scores Quick DASH Score: 40.9075 Goals Goal 1:: Patient will be I with HEP and progression Goal Time Frame: 4-6 Weeks Goal 2:: Patient will maintain proper posture t/o tx session to demo increased scap s/s Goal Time Frame: 4-6 Weeks Goal 3:: Patient will sleep through the night for 1 week without pain Goal Time Frame: 4-6 Weeks Goal 4:: Patient will report 80% improvement Goal Time Frame: 4-6 Weeks Anticipated Interventions Patient/Client Instruction: Educate patient on: Benefits of Fitness Program Therapeutic Exercise to Include: Strength training, Endurance training, Balance training, Agility training, Body mechanics, Postural training, Neuromotor development, Dynamic Lumbar Stabilization, Scapular Strength/Stabilization For the Purpose of:: To improve muscle performance and motor function TENS: Yes Cryotherapy (ice pack, ice massage): Yes Thermo therapy (hot pack): Yes Ultrasound (thermal/non thermal): Yes Please do not hesitate to contact me at [phone] by phone or if you have questions or concerns regarding this new plan of care! Sincerely, CASEY YangT
--- NOTE | 2022-08-16 07:59 | HP.PTDCSUM_ITS ---
It has been my pleasure to treat ZHAO BELTRAN referred by RACHEL Tariq, with the diagnosis of Right Shoulder Impingement for a total of 7 visit(s). Discharge Date: Please see the following information for a summary of their discharge status. Subjective: Patient reports that she is doing PT and everything over head really flares her up. The hurt is anywhere from the elbow and now its starting to get into the neck/shoulder. The pain is only sometimes, but its constant when she puts on a jacket or coat. She also has pain and is unable to case picker her grandchildren. She has not had an injection. She does MH on her shoulder but she can't find anything to take for inflammation- she tried Meloxicam but it tore her stomach up. R Shoulder Pain Intensity (Out of 10): 0 % Improvement: 50 Objective/Function: No significant changes since IE. Posture: Fh, RS- can correct with verbal and tactile cues but does not maintain. Gait: no deviation noted- good arm swing and trunk rotation. Palpation: tender along bicipital groove. ROM: WFL in all planes of the cervical- pain with end range flexion and abduction of the UE Strength: Scap: fair minus, Shoulder: 4+/5 throughout, Elbow: 4/5, Wrist: 5/5, Electronic Pagination System Operator: equal. - Special Tests. R Shoulder Empty Can - SS: Positive. R Shoulder Belly Press - SupScap: Positive. R Shoulder Neer - Impingement: Positive. R Shoulder Stauffer Jeferson - Impingement: Positive Goal 1:: Patient will be I with HEP and progression Goal 2:: Patient will maintain proper posture t/o tx session to demo increased scap s/s Goal 3:: Patient will sleep through the night for 1 week without pain Goal 4:: Patient will report 80% improvement Plan: Patient to return to MD for further evaluation as her objective and subjective measures have not made significant progress over the last 3 weeks. Will hold chart pending decision from MD. If there are questions or concerns regarding this patient's physical therapy, please feel free to call me at [phone]. Thank you for the referral of this patient. Sincerely, Enid Marroquin, DPT Balance/Gait/Functional tests - Balance/Special Test Scores Quick DASH Score: 40.9075
== END 2022-03-15 19:00 | disposition home or self-care (01) ==
LOC: PT 07:00
PROVIDERS: PCP Internal Medicine; Referring Provider Physician Assistant; Visit Provider Physician Assistant
DX: M75.21 Bicipital tendinitis, right shoulder (principal); M19.011 Primary osteoarthritis, right shoulder; M25.811 Other specified joint disorders, right shoulder
CPT/HCPCS: 97110; 97161; 97164

== ENCOUNTER → 2022-04-04 | Outpatient (CLI) | payer OTHER, SELFPAY ==
--- NOTE | 2022-04-04 16:59 | MRI_ITS ---
STUDY: MRI RIGHT SHOULDER REASON FOR EXAM: Right shoulder pain for 4 months, no specific injury. TECHNIQUE: Standardized fat and water weighted pulse sequences were obtained in all 3 orthogonal planes. COMPARISON: Radiograph report 02/14/2022. FINDINGS: There is mild supraspinatus/infraspinatus tendinosis (fat-suppressed T2 coronal images 10-13) without discrete tendon tear. Normal subscapularis tendon. Normal teres minor tendon. Normal supraspinatus muscle. Normal infraspinatus muscle. Normal subscapularis muscle. Normal teres minor muscle. Normal glenohumeral articulation. Normal humeral head and visualized proximal humerus. Normal biceps labral complex. Normal intracapsular long biceps tendon. Normal labrum. Normal capsulo- ligamentous complex. Normal acromioclavicular articulation. There is a Type II morphology (curved), with a neutral orientation. There is a small volume of subacromial-subdeltoid bursal fluid (T2 coronal images 7-12). Normal visualized coracohumeral and coracoacromial ligaments. Normal deltoid muscle. Normal trapezius muscle. MRI/Upper Ext Joint Only(Routine) IMPRESSION: Mild supraspinatus/infraspinatus tendinosis without demonstrated rotator cuff tear. Mild subacromial-subdeltoid bursitis. Electronically Signed: Taras Calle MD at 19:48 EDT ,
== END | disposition home or self-care (01) ==
LOC: MRI 16:59
PROVIDERS: PCP Internal Medicine; Referring Provider Physician Assistant; Visit Provider Physician Assistant
DX: M25.511 Pain in right shoulder (principal); M75.41 Impingement syndrome of right shoulder; M19.011 Primary osteoarthritis, right shoulder
CPT/HCPCS: 73221

== ENCOUNTER → 2022-05-29 | Outpatient (CLI) | payer OTHER, SELFPAY ==
[2022-05-29 07:58] LABS: Absolute Lymphocyte Count 2.16 X10^3/uL (0.83-4.51); Absolute Neutrophil Count 3.7 X10^3/uL (2.0-7.7); Basophil# 0.04 X10^3/uL; Basophil% 0.6 % (0-1); Eosinophil# 0.25 X10^3/uL; Eosinophils% 3.6 % (0-5); Hematocrit 45.2 % (37-47); Hemoglobin 14.8 g/dL (12.0-15.0); Lymphocyte # 2.16 X10^3/ul (0.83-4.51); Lymphocyte % 31.2 % (19-41); Mean Corp Hgb Conc 32.7 g/dL (32-36); Mean Corpuscular Hgb 31.5 pg (27.0-32.0); Mean Corpuscular Volume 96.2 fL (81-99); Mean Platelet Vol. 11.1 fl (6.2-12.0); Monocyte# 0.79 X10^3/uL; Monocyte% 11.4 % (0-10); NRBC Flagged by Analyzer 0 % (0-5); Neutrophil # 3.67 X10^3/uL (2.7-7.7); Neutrophil % 53.1 % (47-70); Platelet Count 289 K/mm3 (150-450); RBC Distribution Width SD 46.2 fl (35.1-43.9); White Blood Count 6.9 K/mm3 (4.4-11.0)
[2022-05-29 08:41] LABS: ALB/GLOB Ratio 0.9 RATIO (0.9-2.4); AST(SGOT) 26 U/L (15-37); Alanine Aminotransfer ALT/SGPT 27 U/L (13-56); Albumin, Serum 3.5 g/dL (3.2-5.0); Alkaline Phosphatase 73 U/L (45-117); Anion Gap 7 (5-15); BUN 14 mg/dL (7-18); BUN/Creat Ratio 17.6 RATIO (10-20); Calcium,Total 9.5 mg/dL (8.5-10.1); Chloride 106 mmol/L (98-107); Cholesterol 205 mg/dL (200); Creatinine, Serum 0.79 mg/dL (0.55-1.02); EST Glomerular Filtration Rate 78 mL/min (>60); Est Glom Filt Rate - Afr Amer 94 mL/min (>60); Globulin 3.8 g/dL (2.2-4.2); Glucose 142 mg/dL (74-106); High Density Lipoprotein 88 mg/dL; Potassium 3.5 mmol/L (3.5-5.1); Protein, Total 7.3 g/dL (6.4-8.2); Sodium Level 140 mmol/L (136-145); Thyroid Stim Hormone (TSH) 2.42 uIU/mL (0.358-3.74); Triglycerides 93 mg/dL; Very Low Density Lipoprotein 19 mg/dL (5-40)
== END | disposition home or self-care (01) ==
LOC: LAB 07:15
PROVIDERS: PCP Internal Medicine; Referring Provider Internal Medicine Cardiovascular Disease; Visit Provider Internal Medicine Cardiovascular Disease
DX: R53.83 Other fatigue (principal); R06.09 Other forms of dyspnea; R00.2 Palpitations; I07.1 Rheumatic tricuspid insufficiency; E78.5 Hyperlipidemia, unspecified; Z98.890 Other specified postprocedural states
CPT/HCPCS: 36415; 80053; 80061; 84443; 85025

== ENCOUNTER → 2022-06-04 | Outpatient (CLI) | payer OTHER, SELFPAY ==
[2022-06-04 07:44] LABS: Glucose 101 mg/dL (74-106)
== END | disposition home or self-care (01) ==
PROVIDERS: PCP Internal Medicine; Referring Provider Internal Medicine Cardiovascular Disease; Visit Provider Internal Medicine Cardiovascular Disease
DX: R53.83 Other fatigue (principal); R06.09 Other forms of dyspnea; R00.2 Palpitations; E78.5 Hyperlipidemia, unspecified; I07.1 Rheumatic tricuspid insufficiency; R73.9 Hyperglycemia, unspecified; Z98.890 Other specified postprocedural states
CPT/HCPCS: 36415; 82947; 93225; 93226

== ENCOUNTER → 2022-06-13 | Outpatient (CLI) | payer OTHER, SELFPAY ==
--- NOTE | 2022-06-13 12:31 | STE_ITS ---
Reason For Study: PALPS, FATIGUE Stress Results Protocol: Kye Protocol Maximum Predicted HR: 157 bpm Target HR: 133 bpm % Maximum Predicted HR: 85 % DurationHeart Rate Stage (mm:ss) (bpm) BP BASELINE 78 142/62 STAGE 1 3:00 110 180/60 STAGE 2 3:00 133 192/58 STAGE 3 3:00 133 194/64 RECOVERY 103 160/70 Stress Duration: 9:00 mm:ss Maximum Stress HR: 133 bpm METS: 10 Baseline Echocardiogram Findings Stress Echo Wall motion Data Resting WM Intermediate WM Stress WM Resting Wall Motion Wall Motion Stress All segments Normal. All segments Hyperkinetic. Ejection Fraction 60 %. Ejection Fraction 70 %. Stress Results Heart rate response: Appropriate: Percent predicted maximal heart rate greater then or equal to 85% Blood pressure response: Resting hypertension-appropriate response Cardiac rhythm: sinus vs. ectopic atrial rhythm with occasional PVCs pretest; occasional PACs/repetitive PACs and occasional PVCs during exercise and recovery Functional capacity: Good Stopped secondary to: dyspnea. EKG Data Baseline ECG: sinus vs. ectopic atrial rhythm; RBBB. Peak stress ECG: continued RBBB pattern with no obvious ECG changes. Symptoms with Stress No complaint of chest discomfort during exercise or recovery. ECHO/Stress Test Echo w/o Contrast Interpretation Summary Negative (adequate) stress echocardiogram Ordering Physician: Germain Villanueva Referring Physician: Germain Villanueva Performed By: Subha Hooper, RDCS, RVT
--- NOTE | 2022-06-13 12:31 | ECHOD_ITS ---
Reason For Study: Dyspnea Procedure This was a 2D Doppler, Color Flow transthoracic echocardiogram. The exam was of adequate technical quality. Exam performed in department. Left Ventricle Normal LV size. Left ventricular systolic function is normal. The estimated ejection fraction is 65 %. Post operative septal motion. Stage 2 diastolic dysfunction. Right Ventricle Normal RV size. Normal systolic function. Atria The left atrium is mildly enlarged. Normal right atrium. No doppler evidence for ASD. Mitral Valve Anterior leaflet diffuse mitral valve thickening. Mitral valve doming/Hockey Sticking. An annuloplasty ring is noted in the mitral position. Trivial transvalvular insufficiency of the mitral valve. Tricuspid Valve Right ventricular systolic pressure estimated to be 38 mmHg. An annuloplasty ring is noted in the tricuspid position. Mild transvalvular insufficiency of the tricuspid valve. Aortic Valve Trisinus/trileaflet aortic valve. Normal aortic valve. Pulmonic Valve The pulmonic valve is not well visualized. Great Vessels Normal sized aortic root. Pericardium/Pleural No pericardial effusion. MMode/2D Measurements & Calculations LVIDd: 3.8 cm IVSd: 0.72 cm Ao root diam: 2.5 cm LVIDs: 2.2 cm LVPWd: 0.88 cm RVDd: 3.2 cm FS: 42.6 % LAV(MOD-bp): 36.4 ml LVAd ap4: 17.8 cm2 SV(MOD-sp4): 27.4 ml LAV(MOD-bp) Indexed: 24.1 ml/m2 LVLd ap4: 6.3 cm LAV(MOD-sp2): 41.9 ml EDV(MOD-sp4): 41.6 ml LAV(MOD-sp4): 30.4 ml EDV(sp4-el): 42.3 ml LVAs ap4: 9.8 cm2 LVLs ap4: 5.7 cm ESV(MOD-sp4): 14.2 ml ESV(sp4-el): 14.4 ml EF(MOD-sp4): 65.9 % EF(sp4-el): 65.9 % SV(sp4-el): 27.9 ml LA A4 area: 13.0 cm2 LA dimension(2D): 3.9 cm RA A4 area: 7.9 cm2 Time Measurements MV dec time: 0.30 sec Doppler Measurements & Calculations MV E max iftikhar: 146.1 cm/sec Lat Peak E' Iftikhar: 7.6 cm/sec Med Peak E' Iftikhar: 3.2 cm/sec MV A max iftikhar: 111.8 cm/sec E/E' lat: 19.1 E/E' med: 45.6 MV E/A: 1.3 MV V2 max: 206.9 cm/sec MV P1/2t max iftikhar: 208.1 cm/sec Ao V2 max: 106.5 cm/sec MV max P.2 mmHg MV P1/2t: 88.4 msec Ao max P.6 mmHg MV V2 mean: 109.7 cm/sec Ao V2 mean: 76.6 cm/sec MV mean P.6 mmHg MV dec slope: 689.5 cm/sec2 Ao mean P.5 mmHg MV V2 VTI: 63.8 cm MVA(P1/2t): 2.5 cm2 Ao V2 VTI: 25.4 cm LV V1 max: 90.2 cm/sec PA V2 max: 96.2 cm/sec TR max iftikhar: 296.0 cm/sec LV V1 max P.3 mmHg TR max P.0 mmHg ECHO/Echo Complete Interpretation Summary Left ventricular systolic function is normal. The estimated ejection fraction is 65 %. Post operative septal motion. The left atrium is mildly enlarged. An annuloplasty ring is noted in the mitral position. Anterior leaflet diffuse mitral valve thickening. Mitral valve doming/Hockey Sticking Trivial transvalvular insufficiency of the mitral valve. An annuloplasty ring is noted in the tricuspid position. Mild transvalvular insufficiency of the tricuspid valve. Right ventricular systolic pressure estimated to be 38 mmHg. Stage 2 diastolic dysfunction. Ordering Physician: Germain Villanueva Referring Physician: Oscar Palacio Performed By: Subha Hooper, RDCS, RVT
== END | disposition home or self-care (01) ==
LOC: CVS 12:31
PROVIDERS: PCP Internal Medicine; Referring Provider Internal Medicine Cardiovascular Disease; Visit Provider Internal Medicine Cardiovascular Disease
DX: R06.00 Dyspnea, unspecified (principal); R06.02 Shortness of breath; R53.83 Other fatigue; R00.2 Palpitations; E78.5 Hyperlipidemia, unspecified; I07.1 Rheumatic tricuspid insufficiency; Z98.890 Other specified postprocedural states
CPT/HCPCS: 93017; 93306; 93350

== ENCOUNTER → 2022-11-21 | Outpatient (CLI) | payer OTHER, SELFPAY ==
[2022-11-21 09:09] LABS: AST(SGOT) 22 U/L (15-37); Alanine Aminotransfer ALT/SGPT 20 U/L (13-56); Alkaline Phosphatase 72 U/L (45-117); Bilirubin, Direct 0.21 mg/dL (0.00-0.30); Cholesterol 208 mg/dL (200); Globulin 3.6 g/dL (2.2-4.2); High Density Lipoprotein 94 mg/dL; Protein, Total 7.6 g/dL (6.4-8.2); Triglycerides 88 mg/dL; Very Low Density Lipoprotein 18 mg/dL (5-40)
== END | disposition home or self-care (01) ==
LOC: LAB 07:22
PROVIDERS: PCP Internal Medicine; Referring Provider Internal Medicine Cardiovascular Disease; Visit Provider Internal Medicine Cardiovascular Disease
DX: E78.5 Hyperlipidemia, unspecified (principal)
CPT/HCPCS: 36415; 80061; 80076

== ENCOUNTER 2023-02-05 16:30 | Outpatient (RCR) | payer OTHER, SELFPAY ==
--- NOTE | 2022-11-12 12:51 | HP.PTEVAL_ITS ---
Patient's Visit Information ZHAO BELTRAN is a 61 year old F referred to Physical Therapy by JUAN BENSON MD with a diagnosis of SAD and Biceps Tenodesis 11/06/22. Date of Evaluation: 11/12/22 Physical Therapist: Enid Marroquin DPT - Visit Plan Frequency: 2x /Week Duration: 4 Weeks Plan: Pt to bring new script with instructions . HEP Given IE: table walk aways and educated on PROM - Subjective Right SAD and Biceps Tenodesis 11/06/22- she went home the same day. She was in a sling and she does not wear it due to pain- he told her its just for comfort. Worst: 10/10 Agg: exercises Eases: ice, Tylenol Best: 0/10. Pain is located in the elbow and down the arm to the hand. She reports the pain is more dully and achy then hand pain has gotten better. She has had some pain at the top of the shoulder. He is having her to the teacher and step and handcuff- all PROM. No N/T in the hand. Sleep: recliner- she is moving around at night- wakes her up- can sleep on the couch with pillows- she is working to get back in. 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 Worked on a computer at home with some discomfort. She does have some blurred vision that is new (educated to touch base with MD). She thinks its from the Tramadol which she has stopped. She has no neck pain, dizziness or HAs. She is normally pretty active- she does have a [employer] membership that she uses for strength/cardio. PMHx/Meds: no changes since 08/30 ortho. - Objective Posture: FH, RS- can correct with verbal cues but does not maintain- no sling on right UE. Palpation: tender along anterior shoulder. ROM: Elbow/Wrist/Hand: WFL Cervical Spine: WFL, Shoulder PROM: Flexion: 150 degrees, Abd: 90 degrees, IR: to belly, ER: 30- did not push through pain/guarding for measurements. Will hold and start PROM with progression through AROM at 2 weeks post op- will take measurements throughout PT POC. Strength: Scap: poor - Balance/Special Test Scores Quick DASH Score: 77.2725 - Goals Goal 1:: Patient will be I with HEP and progression Goal Time Frame: 4-6 Weeks Goal 2:: Patient will demo full AROM of the right shoulder Goal Time Frame: 4-6 Weeks Goal 3:: Patient will maintain proper posture t/o tx to demo increased scap s/s Goal Time Frame: 4-6 Weeks Goal 4:: Patient will report 80% improvement Goal Time Frame: 4-6 Weeks - Rehabilitation Potential Physical Therapy Diagnosis: Patient presents with hypomobility- she has decre ased UE and scapular strength/stabilization, ROM, and muscular endurance s/p right shoulder surgery Rehabilitation Potential: Good - Anticipated Interventions Patient/Client Instruction: Educate patient on: Benefits of Fitness Program Therapeutic Exercise to Include: Strength training, Endurance training, Balance training, Coordination, Agility training, Body mechanics, Postural training, Flexibilty training, Gait and locomotor training, Neuromotor development, Passive ROM, Active ROM, Dynamic Lumbar Stabilization, Scapular Strength/Stabilization For the Purpose of:: To improve muscle performance and motor function TENS: Yes Cryotherapy (ice pack, ice massage): Yes Thermo therapy (hot pack): Yes Ultrasound (thermal/non thermal): No Thank you for the opportunity to evaluate your patient. For Medicare and Medicare HMO plans, please review the plan of care and approve it. It will need to be FAXED BACK to us at [phone] for Medicare purposes. For Medicare only, by signing this I certify the plan of care. Please let me know if there are questions or concerns regarding this plan of care. Physician Signature: Date:
--- NOTE | 2023-04-01 12:53 | HP.PT.NRP ---
Patient Information Patient Information: ZHAO BELTRAN was seen in my office for initial evaluation on 11/12/22. The following Plan of Care was established for this patient: POC Established Initial Frequency: 2x /Week Initial Duration: 4 Weeks Anticipated Interventions Patient/Client Instruction: Educate patient on: Benefits of Fitness Program Therapeutic Exercise to Include: Strength training, Endurance training, Balance training, Coordination, Agility training, Body mechanics, Postural training, Flexibilty training, Gait and locomotor training, Neuromotor development, Passive ROM, Active ROM, Dynamic Lumbar Stabilization and Scapular Strength/Stabilization For the Purpose of:: To improve muscle performance and motor function TENS: Yes Cryotherapy (ice pack, ice massage): Yes Thermo therapy (hot pack): Yes Ultrasound (thermal/non thermal): No Last Seen Last Seen: This patient was last seen in our office . Pertinent comments regarding their Physical therapy will appear below: Patient to continue HEP and be d/c from PT at this time. At this point I will be discontinuing this patient from physical therapy. I would be happy to see this patient again in the future if found appropriate by the physician. Thank you! Enid Marroquin, DPT Balance/Gait/Functional tests Balance/Special Test Scores Quick DASH Score: [phone]
== END 2023-02-05 19:00 | disposition home or self-care (01) ==
LOC: PT 16:30
PROVIDERS: PCP Internal Medicine; Referring Provider Orthopaedic Surgery; Visit Provider Orthopaedic Surgery
DX: M75.41 Impingement syndrome of right shoulder (principal)
CPT/HCPCS: 97110; 97140; 97162

== ENCOUNTER → 2023-06-18 | Outpatient (CLI) | payer OTHER, SELFPAY ==
[2023-06-18 09:27] LABS: AST(SGOT) 26 U/L (15-37); Alanine Aminotransfer ALT/SGPT 28 U/L (13-56); Albumin, Serum 3.8 g/dL (3.2-5.0); Alkaline Phosphatase 87 U/L (45-117); Bilirubin, Direct 0.22 mg/dL (0.00-0.30); Cholesterol 179 mg/dL (200); Globulin 3.6 g/dL (2.2-4.2); High Density Lipoprotein 85 mg/dL; Protein, Total 7.4 g/dL (6.4-8.2); Triglycerides 61 mg/dL; Very Low Density Lipoprotein 12 mg/dL (5-40)
== END | disposition home or self-care (01) ==
LOC: LAB 08:07
PROVIDERS: PCP Internal Medicine; Referring Provider Physician Assistant Medical; Visit Provider Physician Assistant Medical
DX: E78.00 Pure hypercholesterolemia, unspecified (principal)
CPT/HCPCS: 36415; 80061; 80076

== ENCOUNTER → 2023-12-25 | Outpatient (CLI) | payer OTHER, SELFPAY ==
[2023-12-25 08:10] LABS: AST(SGOT) 23 U/L (15-37); Alanine Aminotransfer ALT/SGPT 21 U/L (13-56); Albumin, Serum 3.7 g/dL (3.2-5.0); Alkaline Phosphatase 78 U/L (45-117); Bilirubin, Direct 0.22 mg/dL (0.00-0.30); Cholesterol 173 mg/dL (200); Globulin 3.6 g/dL (2.2-4.2); High Density Lipoprotein 85 mg/dL; Protein, Total 7.3 g/dL (6.4-8.2); Triglycerides 77 mg/dL; Very Low Density Lipoprotein 15 mg/dL (5-40)
== END | disposition home or self-care (01) ==
LOC: LAB 07:12
PROVIDERS: PCP Internal Medicine; Visit Provider Physician Assistant Medical
DX: E78.00 Pure hypercholesterolemia, unspecified (principal)
CPT/HCPCS: 36415; 80061; 80076

== ENCOUNTER 2024-02-11 12:09 | Emergency (ER) | payer OTHER, SELFPAY ==
[2024-02-11 12:09] VITALS: BP 182/66; PULSE 37; PULSE 42; RESP 14; TEMP 37.2; O2SAT 100; BMI 20.9
--- NOTE | 2024-02-11 13:32 | EKG12_ITS ---
Test Reason : PALP Blood Pressure : / mmHG Vent. Rate : 072 BPM Atrial Rate : 000 BPM P-R Int : 000 ms QRS Dur : 150 ms QT Int : 458 ms P-R-T Axes : 000 108 070 degrees QTc Int : 501 ms Possible Normal sinus rhythm with frequent Premature ventricular complexes Right bundle branch block Abnormal ECG Confirmed by NIKI CHINCHILLA, EDITH ([id number]), copy editor GRISELDA CHI ([id number]) on 02/13/2024 6:24:31 AM Referred By: ARTEMIO/MEREDITH Confirmed By:LILLIE PRINCE MD
--- NOTE | 2024-02-11 13:35 | RAD_ITS ---
HISTORY: chest pain. TECHNIQUE: XR Chest 1 View. COMPARISON: None. FINDINGS: CARDIOMEDIASTINAL BORDERS: Cardiac silhouette within normal limits in size. Mediastinal contour unremarkable. Postoperative changes of the mediastinum with midline sternotomy noted. LUNGS: Radiographically clear. PLEURA: No pleural effusion or pneumothorax seen. OSSEOUS STRUCTURES: Unremarkable. RAD/Chest 1 View (Portable) IMPRESSION: No acute cardiopulmonary process identified. Electronically Signed: Meghan Meng MD at 13:49 EDT ,
[2024-02-11 13:43] LABS: Absolute Lymphocyte Count 2.72 X10^3/uL (0.83-4.51); Absolute Neutrophil Count 3.5 X10^3/uL (2.0-7.7); Basophil# 0.05 X10^3/uL; Basophil% 0.7 % (0-1); Eosinophil# 0.09 X10^3/uL; Eosinophils% 1.3 % (0-5); Hemoglobin 14.8 g/dL (12.0-15.0); Lymphocyte # 2.72 X10^3/ul (0.83-4.51); Lymphocyte % 38.6 % (19-41); Mean Corp Hgb Conc 32.9 g/dL (32-36); Mean Corpuscular Hgb 31.2 pg (27.0-32.0); Mean Corpuscular Volume 94.9 fL (81-99); Mean Platelet Vol. 12.1 fl (6.2-12.0); Monocyte% 9.9 % (0-10); NRBC Flagged by Analyzer 0 % (0-5); Neutrophil # 3.48 X10^3/uL (2.7-7.7); Neutrophil % 49.4 % (47-70); Platelet Count 269 K/mm3 (150-450); RBC Distribution Width CV 12.8 % (11.6-14.6); RBC Distribution Width SD 45.1 fl (35.1-43.9); Red Blood Count 4.74 M/mm3 (4.2-5.4); White Blood Count 7.1 K/mm3 (4.4-11.0)
[2024-02-11 14:08] LABS: Anion Gap 8 (5-15); BUN 17 mg/dL (7-18); Calcium,Total 9.3 mg/dL (8.5-10.1); Chloride 107 mmol/L (98-107); Creatinine, Serum 0.85 mg/dL (0.55-1.02); EST Glomerular Filtration Rate 72 mL/min (>60); Est Glom Filt Rate - Afr Amer 87 mL/min (>60); Estimated Creatinine Clearance 54.58 ml/min; Glucose 114 mg/dL (74-106); Magnesium 2.2 mg/dL (1.6-2.6); Potassium 3.2 mmol/L (3.5-5.1); Sodium Level 139 mmol/L (136-145); Thyroid Stim Hormone (TSH) 2.24 uIU/mL (0.358-3.74); Troponin-I HS 5 pg/mL (3.0-54.0)
[2024-02-11 14:09] VITALS: BP 147/68; PULSE 64; RESP 18; TEMP 36.4; O2SAT 98
[2024-02-11] MEDS: Potassium Chloride Oral Tablet 20 MEQ 40 MEQ PO (14:43)
--- NOTE | 2024-02-11 14:50 | ED.VIS.CHEST ---
HPI History of Present Illness Chief Complaint: Palpitations Informant: patient and spouse/S.O. Narrative Narrative: 63-year-old female history of coronary artery disease states that this morning she had three 5-minute long episodes of what she describes as a muscle spasm on the right lower mid axillary chest. During this time she also felt some occasional palpitations. No shortness of breath. She has a remote history of paroxysmal A-fib. She is not currently anticoagulated and has not had an episode for several years. PFSH PFS Medical History PAF (paroxysmal atrial fibrillation) HLD (hyperlipidemia) COVID-19 Shortness of breath Chest pain, unspecified COVID-19 Heart disease SOB (shortness of breath) Sjogren's disease Rheumatic mitral valve prolapse Lyme disease Migraine Hyperlipidemia Rheumatic tricuspid insufficiency Home Medications ?Medication ?Instructions ?Recorded ?Last Taken ?Type cholecalciferol (vitamin D3) 125 5,000 unit PO QDAY 03/27/18 Unknown History mcg (5,000 unit) capsule omega-3 fatty acids 1,000 mg 1,000 mg PO DAILY 05/19/21 Unknown History capsule (Fish Oil Concentrate) aspirin 81 mg tablet,delayed 325 mg PO QDAY 01/07/23 Unknown History release atorvastatin 20 mg tablet 20 mg PO QHS #90 tabs 05/09/23 Unknown Rx metoprolol succinate 25 mg 25 mg PO DAILY #90 tabs 12/31/23 Unknown Rx tablet,extended release 24 hr potassium chloride 20 mEq 40 meq (2 x 20 mEq) PO DAILY #10 02/11/24 Unknown Rx tablet,extended release tabs Allergy/AdvReac Type Severity Reaction Status Date / Time No Known Allergies Allergy Verified 12/31/23 15:17 Family History Grandmother Heart disease Diabetes Father Heart disease Surgical History H/O hysterectomy with oophorectomy History of mitral valve repair (~02/03/04) History of tricuspid valve repair (~2003) Social History Smoking Status: Never smoker alcohol intake: never ROS ROS ED Constitutional Constitutional ED: Denies chills, fever(s) or weight loss Eyes Eyes: Denies change in vision or diplopia ENT ENT ED: Denies ear pain, rhinorrhea or sore throat Cardiovascular Cardiovascular: Reports as per HPI, chest pain and palpitations; Denies orthopnea or racing heartbeat Respiratory/Chest Respiratory/Chest: Denies cough, dyspnea or orthopnea Gastrointestinal Gastrointestinal: Denies abdominal pain, diarrhea, nausea or vomiting Genitourinary Genitourinary ED: Denies dysuria, hematuria or urinary frequency Musculoskeletal Musculoskeletal: Denies arthralgias or myalgias Integumentary Denies abscess or rash Neurologic Neurologic: Denies headache(s) or weakness Psychiatric Psychiatric: Denies anxiety, depression, suicidal ideation or suicidal thoughts Endocrine Endocrinology: Denies polydipsia, polyphagia or polyuria Allergic/Immunologic Allergic/Immunologic ED: Denies mouth swelling, tongue swelling or urticaria EXAM Physical Exam Const Vital Signs: 02/11/24 12:09 02/11/24 12:09 02/11/24 12:09 Temperature 99 F Temperature Source Temporal Pulse Rate 37 L 42 L Respiratory Rate 14 Respiratory Effort Normal Blood Pressure 182/66 H Blood Pressure Mean 104 Pulse Ox 100 Oxygen Delivery Method Room Air 02/11/24 14:09 02/11/24 14:58 Temperature 97.6 F L 97.6 F L Temperature Source Temporal Pulse Rate 64 78 Respiratory Rate 18 16 Respiratory Effort Blood Pressure 147/68 H 143/66 H Blood Pressure Mean 94 91 Pulse Ox 98 99 Oxygen Delivery Method Room Air Positive well nourished and well developed General Appearance ED: well developed HEENT Reports normocephalic, head/scalp atraumatic and moist mucous membranes Eyes PERRL and EOMs intact bilaterally Neck no lymphadenopathy, supple and no JVD Resp normal respiratory effort and clear to auscultation bilaterally Cardio regular rate, regular rhythm and no murmurs GI normal to inspection, nondistended, normoactive bowel sounds and non-tender Palpation: soft Back/Spine no CVA tenderness and normal ROM Extremity normal to inspection General Extremety ED: Negative for edema General Extremity: Negative for edema Neuro oriented x3 and CN's II-XII intact bilaterally Sensorium / Orientation: alert Motor Exam: strength 5/5 throughout Psych mental status grossly normal Mood & Affect: Negative for depressed or tearful Skin no rashes or lesions noted and no wounds MDM MDM MDM Narrative Medical decision making narrative: Differential diagnosis includes dysrhythmia both atrial and ventricular, ACS, electrolyte abnormalities, thyroid disorder, pneumothorax, pneumonia, pleural effusion, aortic dissection, anemia. Patient was placed on the monitor. She has had occasional PVCs but no notable dysrhythmia. My independent interpretation of the chest x-ray is no acute process. Potassium is noted to be slightly low at 3.2. Magnesium is 2.2. Troponin is normal and this represents about 6 hours since the onset. Patient received oral potassium. At this point patient will be discharged home. Will replace her potassium over the next several days. Follow-up as needed return if worsening or concerns History & Record Review Discussion w/independent historian: Patient and Family Lab Data Attestation: I reviewed the patient's lab results. Labs: Laboratory Results - last 24 hr 02/11/24 12:25 WBC 7.1 RBC 4.74 Hgb 14.8 Hct 45.0 MCV 94.9 MCH 31.2 MCHC 32.9 RDW Std Deviation 45.1 H RDW Coeff of Jeni 12.8 Plt Count 269 MPV 12.1 H Immature Gran % (Auto) 0.100 Neut % (Auto) 49.4 Lymph % (Auto) 38.6 Dubois % (Auto) 9.9 Eos % (Auto) 1.3 Baso % (Auto) 0.7 Absolute Neuts (auto) 3.5 Absolute Lymphs (auto) 2.72 Nucleated RBC % 0 Sodium 139 Potassium 3.2 L Chloride 107 Carbon Dioxide 24.0 Anion Gap 8 BUN 17 Creatinine 0.85 Estim Creat Clear Calc 54.58 Est GFR (MDRD) Af Amer 87 Est GFR (MDRD) Non-Af 72 BUN/Creatinine Ratio 20.0 Glucose 114 H Calcium 9.3 Magnesium 2.2 Troponin I High Sens 5 TSH 2.24 Radiography Diagnostic Testing: Clinical Impression(s) from Imaging Studies Chest X-Ray 02/11/24 13:35 IMPRESSION: No acute cardiopulmonary process identified. Electronically Signed: Meghan Meng MD at 13:49 EDT , EKG Initial EKG: Attestation: I personally reviewed and interpreted this EKG as follows: Comments: Sinus rhythm with right bundle branch block frequent PVCs ventricular rate of 72 bpm Discharge Plan Triage Chief Complaint: Palpitations Other Complaint: Chest Pain ED Provider: Nazario Villatoro Dx/Rx/DC Orders Clinical Impression: Muscle spasm, Chest pain, Palpitations, CAD (coronary artery disease), Acute hypokalemia Instructions: ED Hypokalemia, ED Muscle Spasm Prescriptions: New potassium chloride 20 mEq tablet extended release 40 meq PO DAILY Qty: 10 0RF No Action cholecalciferol (vitamin D3) 5,000 unit capsule 5,000 unit PO QDAY omega-3 fatty acids [Fish Oil Concentrate] 1,000 mg capsule 1,000 mg PO DAILY metoprolol succinate 25 mg tablet extended release 24 hr 25 mg PO DAILY Qty: 90 3RF aspirin 81 mg tablet,delayed release (DR/EC) 325 mg PO QDAY atorvastatin 20 mg tablet 20 mg PO QHS Qty: 90 3RF Primary Care Provider: Oscar Palacio Referrals: Oscar Palacio MD [Primary Care Provider] - 1 Week if not improving Print Language: Palauan Disposition Disposition: Home, Self Care Discharge Date/Time: 02/11/24 14:59
[2024-02-11 14:58] VITALS: BP 143/66; PULSE 78; RESP 16; TEMP 36.4; O2SAT 99
== END 2024-02-11 14:59 | disposition home or self-care (01) ==
PROVIDERS: Emergency Provider Emergency Medicine; PCP Internal Medicine; Visit Provider Emergency Medicine
DX: M62.838 Other muscle spasm (principal); R07.9 Chest pain, unspecified; I25.10 Atherosclerotic heart disease of native coronary artery without angina pectoris; R00.2 Palpitations; E87.6 Hypokalemia; E78.5 Hyperlipidemia, unspecified; Z79.82 Long term (current) use of aspirin; Z79.899 Other long term (current) drug therapy
CPT/HCPCS: 71045; 80048; 83735; 84443; 84484; 85025; 93005; 99284

== ENCOUNTER → 2024-06-15 | Outpatient (CLI) | payer OTHER, SELFPAY ==
[2024-06-15 10:26] LABS: Absolute Lymphocyte Count 1.74 X10^3/uL (0.83-4.51); Basophil# 0.02 X10^3/uL; Basophil% 0.3 % (0-1); Eosinophil# 0.12 X10^3/uL; Eosinophils% 1.8 % (0-5); Hemoglobin 14.4 g/dL (12.0-15.0); Lymphocyte # 1.74 X10^3/ul (0.83-4.51); Lymphocyte % 26.3 % (19-41); Mean Corp Hgb Conc 32.7 g/dL (32-36); Mean Corpuscular Hgb 31.3 pg (27.0-32.0); Mean Corpuscular Volume 95.7 fL (81-99); Mean Platelet Vol. 11.7 fl (6.2-12.0); Monocyte# 0.72 X10^3/uL; Monocyte% 10.9 % (0-10); NRBC Flagged by Analyzer 0 % (0-5); Neutrophil # 4.01 X10^3/uL (2.7-7.7); Neutrophil % 60.5 % (47-70); Platelet Count 242 K/mm3 (150-450); RBC Distribution Width CV 12.9 % (11.6-14.6); RBC Distribution Width SD 45.7 fl (35.1-43.9); White Blood Count 6.6 K/mm3 (4.4-11.0)
[2024-06-15 11:02] LABS: Anion Gap 6 (5-15); BUN 18 mg/dL (7-18); BUN/Creat Ratio 24.2 RATIO (10-20); Calcium,Total 9.8 mg/dL (8.5-10.1); Chloride 106 mmol/L (98-107); Creatinine, Serum 0.74 mg/dL (0.55-1.02); EST Glomerular Filtration Rate 83 mL/min (>60); Est Glom Filt Rate - Afr Amer 101 mL/min (>60); Glucose 103 mg/dL (74-106); Potassium 4.2 mmol/L (3.5-5.1); Sodium Level 141 mmol/L (136-145); Thyroid Stim Hormone (TSH) 0.728 uIU/mL (0.358-3.740)
== END | disposition home or self-care (01) ==
LOC: LAB 09:58
PROVIDERS: PCP Internal Medicine; Referring Provider Physician Assistant Medical; Visit Provider Physician Assistant Medical
DX: I48.0 Paroxysmal atrial fibrillation (principal); R00.2 Palpitations; Z79.01 Long term (current) use of anticoagulants; E87.6 Hypokalemia
CPT/HCPCS: 36415; 80048; 83735; 84443; 85025; 85610

== ENCOUNTER → 2024-06-19 | Outpatient (CLI) | payer OTHER, SELFPAY ==
[2024-06-19 08:40] LABS: Prothrombin Time (Protime)PT. 22.6 SECONDS (11.7-14.9)
[2024-06-19 08:53] LABS: AST(SGOT) 24 U/L (15-37); Alanine Aminotransfer ALT/SGPT 22 U/L (13-56); Albumin, Serum 3.9 g/dL (3.2-5.0); Alkaline Phosphatase 81 U/L (45-117); Bilirubin, Direct 0.12 mg/dL (0.00-0.30); Cholesterol 197 mg/dL (200); Globulin 3.6 g/dL (2.2-4.2); High Density Lipoprotein 84 mg/dL; Protein, Total 7.5 g/dL (6.4-8.2); Triglycerides 93 mg/dL; Very Low Density Lipoprotein 19 mg/dL (5-40)
== END | disposition home or self-care (01) ==
LOC: LAB 07:09
PROVIDERS: Physician Assistant; Physician Assistant Medical; PCP Internal Medicine; Referring Provider Internal Medicine Cardiovascular Disease; Visit Provider Internal Medicine Cardiovascular Disease
DX: E78.00 Pure hypercholesterolemia, unspecified (principal); I48.0 Paroxysmal atrial fibrillation; R00.2 Palpitations; Z79.01 Long term (current) use of anticoagulants
CPT/HCPCS: 36415; 80061; 80076; 85610

== ENCOUNTER → 2024-06-22 | Outpatient (CLI) | payer OTHER, SELFPAY | END | disposition home or self-care (01) | PROVIDERS: PCP Internal Medicine; Referring Provider Physician Assistant Medical; Visit Provider Physician Assistant Medical | DX: I48.0 Paroxysmal atrial fibrillation (principal); R00.2 Palpitations | CPT/HCPCS: 93225; 93226 ==

== ENCOUNTER → 2024-06-26 | Outpatient (CLI) | payer OTHER, SELFPAY ==
[2024-06-26 09:43] LABS: International Normalized Ratio 3.8; Prothrombin Time (Protime)PT. 36.8 SECONDS (11.7-14.9)
== END | disposition home or self-care (01) ==
LOC: LAB 08:14
PROVIDERS: Internal Medicine Cardiovascular Disease; PCP Internal Medicine; Referring Provider Physician Assistant Medical; Visit Provider Physician Assistant Medical
DX: I48.0 Paroxysmal atrial fibrillation (principal); Z79.01 Long term (current) use of anticoagulants
CPT/HCPCS: 36415; 85610

== ENCOUNTER → 2024-07-03 | Outpatient (CLI) | payer OTHER, SELFPAY ==
--- OUTSIDE RECORDS SUMMARY | 2024-07-03 07:36 | XMS RPT_ITS | CCD ---
Author Organization [facility] Care Team Providers Care Junior Systems Administrator Name Role Phone Abdulaziz COLE, Miesha Schultz Unavailable Bladimir Luke DO Unavailable Alejandra Cruz Unavailable Unavailable Oscar Ledezma MD Primary Care Provider JUAN BENSON Attending Unavailable PCP, OTHER Primary Care Unavailable JUAN BENSON Attending Unavailable PCP, OTHER Primary Care Unavailable JUAN BENSON Attending Unavailable PCP, OTHER Primary Care Unavailable JUAN BENSON Attending Unavailable PCP, OTHER Primary Care Unavailable Oscar Ledezma MD Primary Care Provider Miesha Drake (Power) Unavailable Franky Taylor MD Unavailable Miesha Nails Unavailable Franky Taylor MD Unavailable Kristyn Chao MD Unavailable Oscar Ledezma MD Primary Care Provider Miesha Monte PA-C Unavailable DORIS KRISHNAMURTHY Referring Unavailable OSCAR LEDEZMA Primary Care Unavailable OSCAR LEDEZMA Primary Care Unavailable OSCAR LEDEZMA Primary Care Unavailable JOHN CALZADA Attending Unavailable KRISTYN CHAO Attending Unavailable FRANKY TAYLOR Referring Unavailable OSCAR LEDEZMA Primary Care Unavailable Allergies Allergy Classification Reported Allergen(s) Allergy Type Date of Onset Reaction(s) Facility (5 sources) Propranolol Drug Allergy 8 Mental Status Change [facility] Work Phone: (4 sources) Propranolol; Translations: [PROPRANOLOL] Drug Allergy 8 Mental Status Change [facility] (2 sources) OTHER; Translations: [OTHER] Propensity to adverse reactions (disorder) 8 [facility] [place] Repository Medications Current Medications Medication Drug Class(es) Dates Sig (Normalized) Sig (Original) atorvastatin 20 mg oral tablet (9 sources) HMG-CoA Reductase Inhibitor Start: 06-08-2020 take 1 tablet by mouth once daily at bedtime atorvastatin (LIPITOR) 20 mg tablet Take 20 mg by mouth daily at bedtime. 06/08/2020 Active Comment on above: Take 20 mg by mouth daily at bedtime. benzonatate 100 mg oral capsule (2 sources) Non-narcotic Antitussive Start: 06-05-2024 take 2 capsules by mouth every eight hours as needed benzonatate (TESSALON PERLE) 100 mg capsule Take 2 capsules by mouth three times a day as needed. 30 capsule 06/05/2024 Active cycloSPORINE 0.5 mg/ml ophthalmic suspension (9 sources) Calcineurin Inhibitor Immunosuppressant take 1 drop(s) into the eye(s) twice daily cycloSPORINE (RESTASIS) 0.05 % ophthalmic emulsion 1 Drop twice daily. Active Comment on above: 1 Drop twice daily. 24 hr metoprolol succinate 25 mg extended release oral tablet (5 sources) beta-Adrenergic Felix Start: 07-09-2022 take 1 tablet by mouth once daily metoprolol succinate ER (TOPROL XL) 25 mg 24 hr tablet Take 25 mg by mouth once daily. 07/09/2022 Active Comment on above: Take 25 mg by mouth once daily. Weston-3 Fatty Acids 300 mg cap (7 sources) Weston-3 Fatty Acids 300 mg cap Take by mouth. Active Weston-3 Fatty Ac ids 300 mg cap Take by mouth. 0 Active Comment on above: Take by mouth. predniSONE 20 mg oral tablet (1 source) Start: 06-05-2024 End: 06-10-2024 take 2 tablets by mouth once daily predniSONE (DELTASONE) 20 mg tablet Take 2 tablets by mouth once daily for 5 days. 10 tablet 06/05/2024 06/10/2024 Active Completed/Discontinued Medications Medication Drug Class(es) Dates Sig (Normalized) Sig (Original) acetaminophen 325 mg / oxyCODONE hydrochloride 5 mg oral tablet (4 sources) Opioid Agonist Start: 03-09-2011 End: 03-29-2016 PERCOCET 5-325 MG TABS one to two tabs four times a day as needed for pain OXYCODONE-ACETAMINO PHEN [id number] Germain Villanueva MD Start: 03-09-2011 End: 03-29-2016 PERCOCET 5-325 MG TABS one t o two tabs four times a day as needed for pain OXYCODONE-ACETAMINOPHEN [id number] Germain Villanueva MD Start: 03-09-2011 PERCOCET 5-325 MG TABS one to two tabs four times a day as needed for pain OXYCODONE-ACETAMINOPHEN [id number] Jayson Weinstein MD 200 actuat albuterol 0.09 mg/actuat metered dose inhaler (4 sources) beta2-Adrenergic Agonist Start: 03-22-2016 End: 03-29-2016 VENTOLIN HFA 108 (90 Base) MCG/ACT AERS As needed - 90mcg/inh ALBUTEROL SULFATE [id number] Miesha Cintron RN Start: 03-22-2016 VENTOLIN HFA 1 08 (90 Base) MCG/ACT AERS As needed - 90mcg/inh ALBUTEROL SULFATE [id number] Miesha Cintron RN Start: 03-22-2016 End: 03-29-2016 VENTOLIN HFA 108 (90 Base) M CG/ACT AERS As needed - 90mcg/inh ALBUTEROL SULFATE [id number] Germain Villanueva MD aspirin (13 sources) Nonsteroidal Anti-inflammatory Drug Start: 04-28-2018 ASPIRIN ADULT LOW DOSE 81 MG TBEC 1 tablet daily ASPIRIN [id number] Sharon Stevenson LPN Start: 10-24-2011 End: 03-13-2023 take 1 tablet by mouth once daily Aspirin 81 mg ORAL Tab Take 1 tablet by mouth once daily. 0 10/24/2011 03/13/2023 Discontinued (Course of therapy completed) take 1 tablet by gaston th once daily aspirin 325 mg tablet Take 325 mg by mouth once daily. Active take 1 tablet by gaston th once daily BABY ASPIRIN 81 MG CHEW One tablet by mouth daily ASPIRIN [id number] Justa Wolfe Comment on above: Take 1 tablet by gaston th once daily. Take 325 mg by mouth once daily. bacitracin 0.5 unt/mg ophthalmic ointment (1 source) Start: 02-04-2019 End: 12-30-2020 bacitracin ophthalmic ophthalmic ointment Use 1 application in the left eye every 4 hours. 02/04/2019 12/30/2020 Discontinued (Course of therapy completed) bisacodyl 5 mg delayed release oral tablet (3 sources) Stimulant Laxative Start: 12-01-2021 End: 03-13-2023 Bisacodyl (DULCOLAX) 5 mg tab Use as directed for Miralax / Gatorade Bowel Prep Kit 4 tablet 0 12/01/2021 03/13/2023 Discontinued (Course of therapy completed) Comment on above: Use as directed for Miralax / Gatorade Bowel Prep Kit calcium (2 sources) Phosphate Binder, Calcium take 1 tablet by mouth once daily [facility] CALCIUM 600+D TABS One tablet by mouth daily CALCIUM CARBONATE-VITAMIN D TABS [id number] Justa Wolfe End: 03-29-2016 take 1 tablet by mouth once daily [facility] CALCIUM 600+D TABS One tablet by mouth daily CALCIUM CARBONATE-VITAMIN D TABS [id number] Germain Villanueva MD calcium carbonate 600 mg / cholecalciferol 125 unt oral tablet (1 source) Vitamin D Start: 06-24-2014 End: 12-30-2020 take 1 tablet by mouth twice daily Calcium-Cholecalciferol, D3, (CALCIUM 600 + D) 600-125 mg-unit tab Take 1 tablet by mouth twice daily. 0 06/24/2014 12/30/2020 Discontinued (Discontinued by Patient) CALCIUM CARBONATE-VITAMIN D TABS (2 sources) take 1 tablet by mouth once daily [facility] CALCIUM 600+D TABS One tablet by mouth daily CALCIUM CARBONATE-VITAMIN D TABS [id number] Justa Wolfe End: 03-29-2016 take 1 tablet by mouth once daily [facility] CALCIUM 600+D TABS One tablet by mouth daily CALCIUM CARBONATE-VITAMIN D TABS [id number] Germain Villanueva MD cefadroxil 500 mg oral capsule (4 sources) Cephalosporin Antibacterial Start: 03-09-2011 End: 03-29-2016 CEFADROXIL 500 MG CAPS one tab twice a day CEFADROXIL [id number] Jayson Weinstein MD cholecalciferol 89696 unt oral tablet (12 sources) Vitamin D Start: 04-28-2018 DIALYVITE REGIS MIN D3 MAX 84935 UNIT TABS as directed CHOLECALCIFEROL [id number] Sharon Stevenson SEARCH DIRECTOR Start: 03-29-2016 take 1 tablet by gaston th once daily VITAMIN D3 5000 UNIT CHEW One tablet by mouth daily CHOLECALCIFEROL [id number] Germain Villanueva MD take 1 tablet by gaston th once daily cholecalciferol (VITAMIN D3) 5,000 unit tab Take 5,000 Units by mouth once daily. Active Comment on above: Take 5,000 Units by mouth once daily. ciprofloxacin (6 sources) Quinolone Antimicrobial Start: 1 End: 6 take 1 tablet by mouth twice daily CIPRO 750 MG TABS One tablet by mouth twice daily CIPROFLOXACIN HCL [id number] Jayson Weinstein MD Start: 03-15-2011 End: 03-29-2016 CIPRO 750 MG TABS one tab tw ice a day CIPROFLOXACIN HCL [id number] Germain Villanueva MD Start: 03-15-2011 CIPRO 750 MG T ABS one tab twice a day CIPROFLOXACIN HCL [id number] Jayson Weinstein MD estrogens, conjugated (assisted) 0.625 mg oral tablet (4 sources) Estrogen End: 03-29-2016 take 1 tablet by mouth once daily PREMARIN 0.625 MG TABS One tablet by mouth daily ESTROGENS CONJUGATED [id number] Justa Wolfe fish oil (3 sources) Start: 05-06-2018 FISH OIL 1000 MG CAPS once daily OMEGA-3 FATTY ACIDS [id number] Bladimir Luke DO Start: 03-29-2016 take 1 tablet by gaston th once daily FISH OIL CAPS One tablet by mouth daily OMEGA-3 FATTY ACIDS CAPS [id number] Germain Villanueva MD 14 actuat fluticasone propionate 0.1 mg/actuat / salmeterol 0.05 mg/actuat dry powder inhaler (4 sources) Corticosteroid, beta2-Adrenergic Agonist Start: 03-22-2016 End: 03-29-2016 ADVAIR DISKUS 100-50 MCG/DOSE AEPB Take as Directed FLUTICASONE-SALMETEROL [id number] Germain Villanueva MD Start: 03-22-2016 End: 03-29-2016 ADVAIR DISKUS 100-50 MCG/DOS E AEPB Take as Directed FLUTICASONE-SALMETEROL [id number] Germain Villanueva MD Start: 03-22-2016 ADVAIR DISKUS 100-50 MCG/DOSE AEPB Take as Directed FLUTICASONE-SALMETEROL [id number] Miesha Cintron RN Gatorade Sports Drink (3 sources) Start: 12-01-2021 End: 03-13-2023 Gatorade Sports Drink Use as directed for Miralax / Gatorade Bowel Prep Kit 0 12/01/2021 03/13/2023 Discontinued (Course of therapy completed) Start: 12-01-2021 Gatorade Sport s Drink Use as directed for Miralax / Gatorade Bowel Prep Kit 0 12/01/2021 Active Comment on above: Use as directed for Miralax / Gatorade Bowel Prep Kit Weston-3 Fatty Acids (FISH OIL) 300 mg cap (2 sources) Weston-3 Fatty Ac ids (FISH OIL) 300 mg cap Take by mouth. 0 Active Comment on above: Take by mouth. polyethylene glycol 3350 85505 mg powder for oral solution (3 sources) Osmotic Laxative Start: 2 End: 3 polyethylene glycol 3350 (MIRALAX, GLYCOLAX) 17 gram/dose powder Use as directed for Miralax / Gatorade Bowel Prep Kit 238 g 0 12/01/2021 03/13/2023 Discontinued (Course of therapy completed) Comment on above: Use as directed for Miralax / Gatorade Bowel Prep Kit turmeric extract 500 mg oral capsule (2 sources) Start: 6 take 1 tablet by mouth once daily TURMERIC 500 MG CAPS One tablet by mouth daily TURMERIC [id number] Germain Villanueva MD Problems Active Problems Problem Classification Problem Date Documented Date Episodic/Chronic Cardiac dysrhythmias (9 sources) Paroxysmal atrial fibrillation; Translations: [Paroxysmal atrial fibrillation] Onset: 03-13-2023 03-13-2023 Chronic Disorders of lipid metabolism (1 source) Hyperlipidemia, unspecified; Translations: [Hyperlipidemia, unspecified] Onset: 11-06-2022 Chronic Heart valve disorders (20 sources) Mitral valve prolapse; Translations: [Rheumatic tricuspid valve regurgitation] Onset: 06-03-1997 03-29-2016 Chronic Nonspecific chest pain (1 source) Tight chest; Translations: [Other chest pain] 09-06-2020 Episodic Osteoarthritis (1 source) Unspecified osteoarthritis, unspecified site; Translations: [Unspecified osteoarthritis, unspecified site] Onset: 11-06-2022 Chronic Other aftercare (1 source) buttermaker continuous churn (current) use of aspirin; Translations: [snf (current) use of aspirin] Onset: 11-06-2022 Episodic Other aftercare (1 source) Other jail (current) drug therapy; Translations: [Other ocean transportation intermediary (current) drug therapy] Onset: 11-06-2022 Episodic Other connective tissue disease (3 sources) Unspecified rotator cuff tear or rupture of right shoulder, not specified as traumatic; Translations: [Unsp rotatr-cuff tear/ruptr of right shoulder, not trauma] Onset: 11-06-2022 Episodic Other connective tissue disease (1 source) Impingement syndrome of right shoulder; Translations: [Impingement syndrome of right shoulder] Onset: 11-06-2022 Episodic Other connective tissue disease (2 sources) Adhesive capsulitis of right shoulder; Translations: [Adhesive capsulitis of right shoulder] Onset: 11-06-2022 Episodic Other lower respiratory disease (2 sources) Cough; Translations: [Acute cough] 06-05-2024 Episodic Other non-traumatic joint disorders (2 sources) Pain in right shoulder; Translations: [Pain in right shoulder] Onset: 05-16-2023 Episodic Other screening for suspected conditions (not mental disorders or infectious disease) (3 sources) Patient encounter status; Translations: [Encounter for screening for osteoporosis] Episodic Daniela-; endo-; and myocarditis; cardiomyopathy (except that caused by tuberculosis or sexually transmitted disease) (11 sources) Heart valve disorder; Translations: [Endocarditis, valve unspecified] Onset: 12-01-2021 12-01-2021 Chronic Residual codes; unclassified (1 source) Postmenopausal state; Translations: [Asymptomatic menopausal state] Episodic Residual codes; unclassified (1 source) Acquired absence of both cervix and uterus; Translations: [Acquired absence of both cervix and uterus] Onset: 11-06-2022 Episodic Spondylosis; intervertebral disc disorders; other back problems (10 sources) Degeneration of lumbar intervertebral disc; Translations: [Other intervertebral disc degeneration, lumbar region] Onset: 05-06-2018 05-06-2018 Chronic Sprains and strains (2 sources) Strain of muscle, fascia and tendon of other parts of biceps, right arm, initial encounter; Translations: [Strain of musc/fasc/tend prt biceps, right arm, init] Onset: 11-06-2022 Episodic Systemic lupus erythematosus and connective tissue disorders (8 sources) Sjogren's syndrome; Translations: [Sicca syndrome, unspecified] Onset: 12-01-2021 12-01-2021 Chronic Unclassified (1 source) History of tricuspid valve repair; Translations: [Other specified postprocedural states] Onset: 04-02-2016 04-02-2016 Unclassified (1 source) Acute cough; Translations: [Acute cough] Onset: 06-05-2024 Past or Other Problems Problem Classification Problem Date Documented Da te Episodic/Chronic Anxiety disorders (5 sources) Claustrophobia; Translations: [Claustrophobia] Onset: 11-07-2016 Resolved: 06-25-2017 06-25-2017 Chronic Cardiac dysrhythmias (11 sources) Palpitations; Translations: [Palpitations] Onset: 03-29-2016 03-29-2016 Episodic Diseases of mouth; excluding dental (9 sources) Xerostomia; Translations: [Dry mouth, unspecified] Onset: 05-25-2020 05-25-2020 Episodic Headache; including migraine (5 sources) Migraine; Translations: [Migraine] Onset: 06-03-1997 Resolved: 08-11-2013 08-11-2013 Chronic Intestinal infection (5 sources) Clostridium difficile diarrhea; Translations: [Enterocolitis due to Clostridium difficile, not specified as recurrent] Onset: 04-28-2012 Resolved: 08-11-2013 08-11-2013 Episodic Other bone disease and musculoskeletal deformities (9 sources) Senile osteopenia; Translations: [Other specified disorders of bone density and structure, unspecified site] Onset: 10-06-2018 10-06-2018 Episodic Other circulatory disease (10 sources) History of repair of mitral valve; Translations: [Other specified postprocedural states] Onset: 03-22-2016 03-22-2016 Episodic Other connective tissue disease (2 sources) Residual foreign body in soft tissue; Translations: [Residual foreign body in soft tissue] Onset: 03-06-2010 03-17-2011 Episodic Other connective tissue disease (5 sources) Myofascial pain; Translations: [Myalgia, other site] Onset: 06-24-2014 Resolved: 06-25-2017 06-25-2017 Episodic Other connective tissue disease (5 sources) Pain in buttock; Translations: [Myalgia, other site] Onset: 06-24-2014 Resolved: 06-25-2017 06-25-2017 Episodic Other eye disorders (9 sources) Dry eyes; Translations: [Dry eye syndrome of bilateral lacrimal glands] Onset: 05-25-2020 05-25-2020 Episodic Other infections; including parasitic (5 sources) Lyme disease; Translations: [Lyme disease, unspecified] Onset: 04-25-2012 Resolved: 09-22-2015 09-11-2021 Episodic Other injuries and conditions due to external causes (2 sources) Retained glass fragments; Translations: [Retained glass fragments] Onset: 03-16-2011 03-17-2011 Episodic Other lower respiratory disease (6 sources) Dyspnea; Translations: [Shortness of breath] Onset: 02-14-2023 02-14-2023 Episodic Other skin disorders (4 sources) Foreign body granuloma of the skin and subcutaneous tissue; Translations: [Foreign body granuloma of the skin and subcutaneous tissue] Onset: 03-06-2010 01-31-2011 Episodic Other upper respiratory infections (4 sources) Acute sinusitis; Translations: [Acute sinusitis, unspecified] Onset: 02-14-2023 Resolved: 03-13-2023 03-13-2023 Episodic Residual codes; unclassified (9 sources) Other specified personal risk factors, not elsewhere classified; Translations: [Other specified personal history presenting hazards to health] Onset: 03-13-2023 03-13-2023 Episodic Residual codes; unclassified (2 sources) Other specified postprocedural states; Translations: [History of mitral valve repair] Onset: 03-13-2023 Episodic Spondylosis; intervertebral disc disorders; other back problems (10 sources) Disorder of sacrum; Translations: [Sacrococcygeal disorders, not elsewhere classified] Onset: 01-13-2014 Resolved: 06-25-2017 06-25-2017 Episodic Unclassified (9 sources) Other specified postprocedural states; Translations: [History of tricuspid valve repair] Onset: 04-02-2016 04-02-2016 Episodic Unclassified (1 source) Problem Results Test Name Value Interpretation Reference Range Facility [facility] 06-29-2024 CNPN Telephone (AKPRAD) LUZ BELTRAN ([id number]) 1960 F Date Time Provider Department 06/29/24 KRISTYN CHAO During your visit today, we recorded the following information about you: Kristyn Chao MD 06/29/2024 2:24 PM Signed [facility] General Electrophysiology (EP) Dr. Cash of [facility] is requesting that Ms. Beltran be seen sooner than 12/2024 scheduled follow up. She is having severely symptomatic atrial fibrillation and wants to discuss treatment options such as catheter ablation. Please offer her an appointment within the next month or two. Kristyn Chao MD June 29, 2024 2:24 PM Leann Davison 06/29/2024 3:30 PM Signed Spoke with patient and she is scheduled 07/01 Leann Davison Allergies As of Date: 06/29/2024 Noted Allergy Reaction INDERAL (PROPRANOLOL) 07/09/1998 1 - Mental Status Change Date Reviewed: 06/05/2024 Reviewed by: Roma Lopez MA - Fully Assessed Reason for Visit: Follow Up [171] Prescriptions as of 06/29/2024 - benzonatate (TESSALON PERLE) 100 mg capsule Take 2 capsules by mouth three times a day as needed. - metoprolol succinate ER (TOPROL XL) 25 mg 24 hr tablet Take 25 mg by mouth once daily. - aspirin 325 mg tablet Take 325 mg by mouth once daily. - cycloSPORINE (RESTASIS) 0.05 % ophthalmic emulsion 1 Drop twice daily. - atorvastatin (LIPITOR) 20 mg tablet Take 20 mg by mouth daily at bedtime. - cholecalciferol (VITAMIN D3) 5,000 unit tab Take 5,000 Units by mouth once daily. - Weston-3 Fatty Acids 300 mg cap Take by mouth. Problem List As Of Date 06/29/2024 Noted Resolved Mitral valve disorders [I05.9] 06/03/1997 Class: Chronic Migraine [346] 06/03/1997 08/11/2013 Class: Chronic Possible Lyme Disease [A69.20] 04/25/2012 09/22/2015 C. difficile diarrhea [A04.72] 04/28/2012 08/11/2013 Disorders of sacrum [M53.3] 01/13/2014 06/25/2017 Low back pain [M54.50] 06/24/2014 06/25/2017 Myofascial pain [M79.18] 06/24/2014 06/25/2017 Buttock pain [M79.18] 06/24/2014 06/25/2017 Claustrophobia [F40.240] 11/07/2016 06/25/2017 DDD (degenerative disc disease), lumbar [M51.36*10/06/2018 Osteopenia, senile [M85.80] 10/06/2018 Dry eyes [H04.123] 05/25/2020 Dry mouth [R68.2] 05/25/2020 Sjoegren syndrome (HCC) [M35.00] 12/01/2021 Valvular heart disease [I38] 12/01/2021 Shortness of breath [R06.02] 02/14/2023 Acute sinusitis [J01.90] 02/14/2023 03/13/2023 PAF (paroxysmal atrial fibrillation) (HCC) [I48*03/13/2023 At risk for stroke [Z91.89] 03/13/2023 History of mitral valve repair [Z98.890] 03/13/2023 History of tricuspid valve repair [Z98.890] 03/13/2023 Palpitations [R00.2] 03/15/2023 Encounter Status:Closed by KRISTYN CHAO on 06/29/24 [facility] CNOVon 06-05-2024 CN Office Visit (UCWSTR ) LUZ BELTRAN ([id number]) 1960 F Date Time Provider Department 06/05/24 7:15 AM DORIS RKISHNAMURTHY [facility] During your visit today, we recorded the following information about you: Temperature Pulse Respiration Blood pressure 97.8 degrees 68/minute 18/minute 145/59 Weight 53.6 kg Doris Krishnamurthy APRN.SED SPECIAL EDUCATION TEACHER 06/05/2024 8:43 AM Signed Subjective Cough Pertinent negatives include no chest pain, no chills, no ear pain, no headaches, no sore throat, no myalgias, no shortness of breath and no wheezing. ANNA Luz Beltran is a 63 year old female who presents today for CC of cough for 3 weeks that won't go away. She states in the beginning she did have some nasal drainage, scratchy throat. She denies any fever chills, body aches. BP 145/59 Pulse 68 Temp 36.6 ?C (97.8 ?F) Resp 18 Wt 53.6 kg (118 lb 2.7 oz) SpO2 99% BMI 20.28 kg/m? Social History Tobacco Use Smoking status: Never Smokeless tobacco: Never Vaping Use Vaping status: Never Used Substance Use Topics Alcohol use: No Drug use: No PAST MEDICAL HISTORY Diagnosis Date Arthritis At risk for stroke C. difficile diarrhea 04/28/2012 Chest pain COVID-19 08/24/2020 DDD (degenerative disc disease), lumbar 10/06/2018 Dr. Benjamin Luke, [facility]. Diseases of tricuspid valve Dry eyes 05/25/2020 Zofia Vasquez MD, [facility] Dry mouth 05/25/2020 History of anal fissures 2005 Connie History of mitral valve repair History of transfusion History of tricuspid valve repair HLD (hyperlipidemia) Low back pain 06/24/2014 Lyme disease Migraine Mitral valve disorders(424.0) 2004 Myofascial pain 06/24/2014 Osteopenia, senile 10/06/2018 PAF (paroxysmal atrial fibrillation) (HCC) Palpitations 03/15/2023 PONV (postoperative nausea and vomiting) Reactive airway disease without complication 10/14/2015 Sjogren's disease (HCC) SOB (shortness of breath) I have confirmed and edited as necessary, the [facility] Review of Systems Constitutional: Negative for chills and fever. HENT: Negative for congestion, ear pain, sinus pain and sore throat. Respiratory: Positive for cough. Negative for sputum production, shortness of breath and wheezing. Cardiovascular: Negative for chest pain. Musculoskeletal: Negative for myalgias. Neurological: Negative for headaches. Objective Physical Exam Vitals and nursing note reviewed. HENT: Head: Normocephalic and atraumatic. Right Ear: Tympanic membrane, ear canal and external ear normal. Left Ear: Tympanic membrane, ear canal and external ear normal. Nose: No mucosal edema, congestion or rhinorrhea. Right Sinus: No maxillary sinus tenderness or frontal sinus tenderness. Left Sinus: No maxillary sinus tenderness or frontal sinus tenderness. Mouth/Throat: Pharynx: Uvula midline. No oropharyngeal exudate or posterior oropharyngeal erythema. Cardiovascular: Rate and Rhythm: Normal rate and regular rhythm. Heart sounds: Normal heart sounds. Pulmonary: Effort: Pulmonary effort is normal. Breath sounds: Normal breath sounds. Decreased air movement present. Lymphadenopathy: Head: Right side of head: No submental, submandibular or tonsillar adenopathy. Left side of head: No submental, submandibular or tonsillar adenopathy. Cervical: No cervical adenopathy. Skin: General: Skin is warm and dry. Neurological: Mental Status: She is alert. Psychiatric: Mood and Affect: Affect normal. ASSESSMENT/PLAN: 1. Acute cough - ICD9: 786.2, ICD10: R05.1 Appears to be post viral, inflammatory - XR CHEST 2V FRONTAL/LAT RESULT: Lines, tubes, and devices: None. Lungs and pleura: No consolidation. No lung mass. No pleural effusion. No pneumothorax. Cardiomediastinal silhouette: Normal cardiomediastinal silhouette. Bones and soft tissues: Status post median sternotomy, with mitral valve and tricuspid valve annuloplasty. IMPRESSION: No acute radiographic abnormality. Interpreted by : TITI BUTLER MD Diagnosis and treatment plan were discussed and questions were answered to the patient's satisfaction. Pt acknowledged understanding of concepts and follow up plan. Specific signs and symptoms that would indicate the need for higher level of care were discussed in detail warranting prompt ER evaluation. Doris Krishnamurthy APRN.Doris Velásquez APRN.CNP 06/05/2024 8:43 AM Signed Tessalon Perles 2 every 8 hours, do not combine this with robitussin or delsym * Prednisone 40 mg (2 tablets) per day for 5 days, take in morning or early in day * Do not NSAIDs during this 5 day course (ibuprofen, naproxen, Motrin, Aleve, Advil) Tylenol only during prednisone use * Follow up with primary care provider if no improvement with treatment * Seek medical care immediately, call 911, go to ER if you have chest pain, difficulty breathing, shortness of (more content not included)... Normal [facility] XR CHEST 2V FRONTAL/LATon XR CHEST 2V FRONTAL/LAT * * *Final Report* * * DATE OF EXAM: Jun 05 2024 8:27AM WOX 5291 - XR CHEST 2V FRONTAL/LAT / PROCEDURE REASON: Acute cough * * * * Physician Interpretation * * * * EXAMINATION: CHEST RADIOGRAPH (2 VIEW FRONTAL and LATERAL) CLINICAL HISTORY: Acute cough MQ: XC2_6 EXAM DATE/TIME: 06/05/2024 8:27 AM COMPARISON: Chest x-ray on 09/06/2020 RESULT: Lines, tubes, and devices: None. Lungs and pleura: No consolidation. No lung mass. No pleural effusion. No pneumothorax. Cardiomediastinal silhouette: Normal cardiomediastinal silhouette. Bones and soft tissues: Status post median sternotomy, with mitral valve and tricuspid valve annuloplasty. IMPRESSION: No acute radiographic abnormality. Corporate Financial Analyst: [facility] Transcribe Date/Time: Jun 05 2024 8:30A Dictated by : TITI BUTLER MD This examination was interpreted and the report reviewed and electronically signed by: TITI BUTLER MD on Jun 05 2024 8:31AM EST [id number] Normal [facility] XR Chest PA and Lateralon IMPRESSION: No acute radiographic abnormality. Corporate Financial Analyst: [facility] Transcribe Date/Time: Jun 05 2024 8:30A Dictated by : TITI BUTLER MD This examination was interpreted and the report reviewed and electronically signed by: TITI BUTLER MD on Jun 05 2024 8:31AM EST DIVISION OF RADIOLOGY * * *Final Report* * * DATE OF EXAM: Jun 05 2024 8:27AM WOX 5291 - XR CHEST 2V FRONTAL/LAT / PROCEDURE REASON: Acute cough * * * * Physician Interpretation * * * * EXAMINATION: CHEST RADIOGRAPH (2 VIEW FRONTAL & LATERAL) CLINICAL HISTORY: Acute cough MQ: XC2_6 EXAM DATE/TIME: 06/05/2024 8:27 AM COMPARISON: Chest x-ray on 09/06/2020 RESULT: Lines, tubes, and devices: None. Lungs and pleura: No consolidation. No lung mass. No pleural effusion. No pneumothorax. Cardiomediastinal silhouette: Normal cardiomediastinal silhouette. Bones and soft tissues: Status post median sternotomy, with mitral valve and tricuspid valve annuloplasty. DIVISION OF RADIOLOGY Provider, [facility] - 06/05/2024 * * *Final Report* * * DATE OF EXAM: Jun 05 2024 8:27AM WOX 5291 - XR CHEST 2V FRONTAL/LAT / PROCEDURE REASON: Acute cough * * * * Physician Interpretation * * * * EXAMINATION: CHEST RADIOGRAPH (2 VIEW FRONTAL & LATERAL) CLINICAL HISTORY: Acute cough MQ: XC2_6 EXAM DATE/TIME: 06/05/2024 8:27 AM COMPARISON: Chest x-ray on 09/06/2020 RESULT: Lines, tubes, and devices: None. Lungs and pleura: No consolidation. No lung mass. No pleural effusion. No pneumothorax. Cardiomediastinal silhouette: Normal cardiomediastinal silhouette. Bones and soft tissues: Status post median sternotomy, with mitral valve and tricuspid valve annuloplasty. IMPRESSION IMPRESSION: No acute radiographic abnormality. Corporate Financial Analyst: [facility] Transcribe Date/Time: Jun 05 2024 8:30A Dictated by : TITI BUTLER MD This examination was interpreted and the report reviewed and electronically signed by: TITI BUTLER MD on Jun 05 2024 8:31AM EST [facility] Radiology Study observation (narrative) [facility] XR Chest PA and LateralOrder ed By: Ccf Provider on 06-05-2024 [facility] CNCOon 12-24-2023 CNCO Letter Text Letter Text Normal [facility] CNOVon 12-20-2023 CNOV Office Visit (CARDAGHWW) RUBYLUZ ([id number]) 1960 F Date Time Provider Department 12/20/23 2:00 PM KRISTYN CHAOAGHWLuanne During your visit today, we recorded the following information about you: Pulse Blood pressure Weight Height 60/minute 140/53 53.5 kg 1.626 m Kristyn Chao MD 12/20/2023 6:21 PM Signed PRIMARY CARE PHYSICIAN: Oscar Ledezma [address] [place] [address] Patient Care Team: Oscar Ledezma MD as PCP - General (Internal Medicine) Miesha Drake PA as Physician Hydroelectric Plant Electrician (Pulmonary and Critical Care Medicine) Franky Taylor MD as Specialty Meteorological Technician (Cardiology) Kristyn Chao MD as Specialty Meteorological Technician (Cardiology) CHIEF COMPLAINT: Follow up for arrhythmia HISTORY OF PRESENT ILLNESS: Ms. Beltran is a 63 year old female who presents today for a cardiovascular medicine follow-up visit. History copied from previous notes, edited as needed: Summary of previous notes: Ms. Beltran has cardiac history significant for mitral valve disease, with mitral valve prolapse and mitral regurgitation. She underwent valve surgery in 2003, she had mitral and tricuspid valve repairs. She states that she has experienced palpitations her entire life -- but have been more frequent and more bothersome recently. She states that she has been under increased stress more recently. She was previously on propranolol in the past. She states that she underwent surgery for her right shoulder in October 2022, she had the surgery due to a torn bicep and frozen shoulder. There was some issue with arrhythmia, she was told she had intermittent atrial fibrillation. She wore a adjuster piano action for 30 days. She also had a 48-hour ambulatory Holter monitor in May 2022. The cardiac monitoring revealed paroxysmal atrial fibrillation. She does not have high risk for stroke from atrial fibrillation, currently would not push hard for oral anticoagulation therapy at this point. I think a rate controlling medication could help alleviate some of her symptoms. She evidently did not tolerate propranolol in the past due to side effects, possibly depression. This might be a class effect that she might experience with any of the beta-blockers, but it is reasonable to consider trying metoprolol or atenolol. Another option would be a nondihydropyridine calcium channel felix such as diltiazem. I would not at this point advocate or recommend for advanced treatment strategies such as antiarrhythmic drug therapy or catheter ablation. The antiarrhythmic drug options would be somewhat limited due to the existing bundle branch block, particularly with the Class IC agents (flecainide, propafenone) that have more direct impact on AV conduction intervals. Interim History Dr. Chao 12/20/2023: Ms. Beltran presents for follow-up evaluation for paroxysmal atrial fibrillation. She states that she has been much better with the metoprolol medication. She states she has been doing well overall. Metoprolol helped a lot. This past Saturday she had symptoms suggestive of atrial fibrillation, lasted about 10 minutes, with racing heartbeats, palpitations. She has an Apple Watch, which indicated atrial fibrillation. Episodes have not been frequent, previous episode was about 6 or 7 weeks prior. She is under a lot of stress, her mother has not been well. She denies chest pain, shortness of breath, orthopnea, PND, syncope. I have confirmed and edited as necessary, the PFSH and ROS obtained by others. PAST MEDICAL HISTORY Diagnosis Date Arthritis At risk for stroke C. difficile diarrhea 04/28/2012 Chest pain COVID-19 08/24/2020 DDD (degenerative disc disease), lumbar 10/06/2018 Dr. Benjamin Luke, [facility]. Diseases of tricuspid valve Dry eyes 05/25/2020 Zofia Vasquez MD, [facility] Dry mouth 05/25/2020 History of anal fissures 2005 Connie History of mitral valve repair History of transfusion History of tricuspid valve repair HLD (hyperlipidemia) Low back pain 06/24/2014 Lyme disease Migraine Mitral valve disorders(424.0) 2003 Myofascial pain 06/24/2014 Osteopenia, senile 10/06/2018 PAF (paroxysmal atrial fibrillation) (HCC) Palpitations 03/15/2023 PONV (postoperative nausea and vomiting) Reactive airway disease without complication 10/14/2015 Sjogren's disease (HCC) SOB (shortness of breath) PAST SURGICAL HISTORY Procedure Laterality Date CARDIAC VALVE SURGERY HX 02/03/2004 Mitral valve and Tricuspid valve repair; [facility] COLONOSCOPY 12/27/2021 repeat in 10 years FISSURECTOMY INCL SPHINCTEROTOMY WHEN PERFORMED 09/16/2005 Connie LEFT HEART CATH,PERCUTANEOUS 12/13/2003 Cardiac cath, L heart PAST SURGICAL HISTORY OF 09/16/2010 glass removed from middle f (more content not included)... Normal [facility] CNOVon 09-30-2023 CNOV Office Visit (INTMWS ) LUZ BELTRAN ([id number]) 1960 F Date Time Provider Department 09/30/23 9:20 AM JOHN CALZADA INTMWS During your visit today, we recorded the following information about you: Pulse Respiration Blood pressure Weight 76/minute 14/minute 168/78 52.6 kg John Calzada, BRUSHER MACHINE.SED SPECIAL EDUCATION TEACHER 09/30/2023 9:41 AM Signed CC: Patient presents with: bowel cramping: Relief after BM - then back pain HPI Luz Beltran is a 62 year old female who presents today for above. Patient reports episodes of bowel cramping followed by a BM with mushy stool and mucus, occurring twice this past month. Associated with nausea, sweating and lightheadedness. These episodes started about 4-5 years ago, experiencing a couple a times a year but never this close together. She denies any GI issues in between these episodes. Denies abdominal pain, nausea, vomiting, diarrhea, constipation, black/bloody stools, poor appetite, heartburn or reflux symptoms. No change in diet or eating habits. She has been under a lot more stress recently. She had a colonoscopy in 2021 that was normal other than internal hemorrhoids and diverticula. Review of Systems Constitutional: Negative for chills, diaphoresis, fatigue, fever and unexpected weight change. Hematological: Negative for adenopathy. Does not bruise/bleed easily. PAST MEDICAL HISTORY Diagnosis Date Arthritis At risk for stroke C. difficile diarrhea 04/28/2012 Chest pain COVID-19 08/24/2020 DDD (degenerative disc disease), lumbar 10/06/2018 Dr. Benjamin Luke, [facility]. Diseases of tricuspid valve Dry eyes 05/25/2020 Zofia Vasquez MD, [facility] Dry mouth 05/25/2020 History of anal fissures 2005 Connie History of mitral valve repair History of transfusion History of tricuspid valve repair HLD (hyperlipidemia) Low back pain 06/24/2014 Lyme disease Migraine Mitral valve disorders(424.0) 2004 Myofascial pain 06/24/2014 Osteopenia, senile 10/06/2018 PAF (paroxysmal atrial fibrillation) (HCC) Palpitations 03/15/2023 PONV (postoperative nausea and vomiting) Reactive airway disease without complication 10/14/2015 Sjogren's disease (HCC) SOB (shortness of breath) PAST SURGICAL HISTORY Procedure Laterality Date CARDIAC VALVE SURGERY HX 02/03/2004 Mitral valve and Tricuspid valve repair; [facility] COLONOSCOPY 12/27/2021 repeat in 10 years FISSURECTOMY INCL SPHINCTEROTOMY WHEN PERFORMED 09/16/2005 Connie LEFT HEART CATH,PERCUTANEOUS 12/13/2003 Cardiac cath, L heart PAST SURGICAL HISTORY OF 09/16/2010 glass removed from middle finger right hand - Dr. Weinstein [facility] TOTAL ABDOMINAL HYSTERECT W/WO RMVL TUBE OVARY 09/16/2001 Hysterectomy, YUSUF VAGINAL HYSTERECTOMY ALLERGIES Inderal [Other] MEDICATIONS metoprolol succinate ER (TOPROL XL) 25 mg 24 hr tablet Take 25 mg by mouth once daily. aspirin 325 mg tablet Take 325 mg by mouth once daily. cycloSPORINE (RESTASIS) 0.05 % ophthalmic emulsion 1 Drop twice daily. atorvastatin (LIPITOR) 20 mg tablet Take 20 mg by mouth daily at bedtime. cholecalciferol (VITAMIN D3) 5,000 unit tab Take 5,000 Units by mouth once daily. Weston-3 Fatty Acids 300 mg cap Take by mouth. FAMILY HISTORY Problem Relation Age of Onset COPD Mother other (diverticulitis) Mother other (sciatica) Mother Heart Attack Father Dementia Father Heart disease Father CABG No Known Problems Brother Heart disease Maternal Grandmother CABG Diabetes Maternal Grandmother Social History Tobacco Use Smoking status: Never Smokeless tobacco: Never Vaping Use Vaping Use: Never used Substance Use Topics Alcohol use: No Drug use: No BP 168/78 Pulse 76 Resp 14 Wt 52.6 kg (116 lb) SpO2 99% BMI 19.91 kg/m? Physical Exam Vitals reviewed. Constitutional: Appearance: Normal appearance. Cardiovascular: Rate and Rhythm: Normal rate. Rhythm irregular. Heart sounds: Normal heart sounds. No murmur heard. Pulmonary: Effort: Pulmonary effort is normal. Breath sounds: Normal breath sounds and air entry. Abdominal: General: Abdomen is flat. Bowel sounds are normal. Palpations: Abdomen is soft. There is no hepatomegaly, splenomegaly or mass. Tenderness: There is no abdominal tenderness. Negative signs include Zhang's sign. Neurological: Mental Status: She is alert. DATA REVIEWED: most recent labs and colonoscopy ASSESSMENT/PLAN: 1. Abdominal cramping - ICD9: 789.00, ICD10: R10.9 Etiology unclear. Normal labs a few months ago and colonoscopy in 2021. Suspect GI symptoms related to increase in stress. No alarm symptoms or exam findings. Continue to monitor. Will refer to GI if symptoms reoccur Prescription instructions reviewed with patient as applicable. Potential red flag symptoms discussed with the patient. Reviewed appropriate action p (more content not included)... Normal [facility] CBC with Diffon 10-31-2022 AB IMMATURE NEUT 0.00 K/UL Normal 0.0-0.1 [facility] ABS BASO 0.04 K/UL Normal 0.00-0.22 [facility] ABS EOS 0.04 K/UL Normal 0-0.45 [facility] ABS NEUTROPHILS 3.00 K/UL Normal 1.8-7.7 [facility] ABS.NEUT.CALCULATED 3.00 K/UL Normal [facility] Comment on above: Result Comment: Perf ormed at [facility] [address] [facility] [address] Basophils/100 WBC (Bld) 0.70 % Normal 0-1 [facility] DIFF TYPE AUTO DIFF Normal [facility] Eosinophils/100 WBC (Bld) 0.70 % Normal 0-3 [facility] Erythrocyte distribution width (RBC) [Ratio] 12.4 % Normal 11.7-15.0 [facility] Hematocrit (Bld) [Volume fraction] 44.9 % High 36-44 [facility] Hemoglobin (Bld) [Mass/Vol] 14.5 g/dL Normal 12.0-15.0 [facility] Lymphocytes (Bld) [#/Vol] 1.96 10*3/uL Normal 1.2-3.2 [facility] Lymphocytes/100 WBC (Bld) 34.60 % Normal 20-40 [facility] MCH (RBC) [Entitic mass] 30.8 pg Normal 26-34 [facility] MCHC 32.3 % Normal 31-37 [facility] MCV (RBC) [Entitic vol] 95.3 fL Normal 80-100 [facility] MEAN PLT VOL 10.8 CU Normal 7.0-12.6 [facility] Monocytes (Bld) [#/Vol] 0.62 10*3/uL Normal 0-0.8 [facility] Monocytes/100 WBC (Bld) 11.00 % High 0-8 [facility] Neutrophils/100 WBC (Bld) 0.00 % Normal 0.0-1.0 [facility] Neutrophils/100 WBC (Bld) 53.00 % Normal 50-70 [facility] Platelets (Bld) [#/Vol] 234 10*3/uL Normal 150-450 [facility] RBC (Bld) [#/Vol] 4.71 10*6/uL Normal 4.0-4.9 [facility] RDW-SD 44.4 FL Normal 37.0-54.0 [facility] WBC (Bld) [#/Vol] 5.7 10*3/uL Normal 4.5-11.0 [facility] COMPREHENSIVE METABOLIC PANE Tu 10-31-2022 Albumin [Mass/Vol] 4.5 g/dL Normal 3.5-5.0 [facility] Albumin/Globulin [Mass ratio] 1.5 {ratio} Normal 1.5-3.0 [facility] ALP [Catalytic activity/Vol] 80 U/L Normal 35-125 [facility] ALT [Catalytic activity/Vol] 20 U/L Normal 5-40 [facility] Anion gap [Moles/Vol] 11 mmol/L Normal 0-19 [facility] AST [Catalytic activity/Vol] 27 U/L Normal 5-40 [facility] Bilirubin [Mass/Vol] 0.4 mg/dL Normal 0.1-1.2 [facility] Calcium [Mass/Vol] 9.8 mg/dL Normal 8.5-10.4 [facility] Chloride [Moles/Vol] 103 mmol/L Normal 97-107 [facility] CO2 [Moles/Vol] 29 mmol/L Normal 24-31 [facility] Creatinine [Mass/Vol] 0.7 mg/dL Normal 0.4-1.6 [facility] ESTIMATED GFR 97 mL/min/1.73 m2 Normal [facility] Comment on above: Result Comment: CALCULATIONS OF ESTIMATED GFR ARE PERFORMED USING THE 2020 CKD-EPI STUDY REFIT EQUATION WITHOUT THE RACE VARIABLE FOR THE IDMS-TRACEABLE CREATININE METHODS. https://jasn.asnjournals.org/content//ASN.401933 7506 Performed at [facility] [address] [facility] [address] Globulin (S) [Mass/Vol] 3.0 g/dL Normal 1.9-3.7 [facility] Glucose [Mass/Vol] 92 mg/dL Normal 65-99 [facility] Potassium [Moles/Vol] 3.7 mmol/L Normal 3.4-5.1 [facility] Protein [Mass/Vol] 7.5 g/dL Normal 5.9-7.9 [facility] Sodium [Moles/Vol] 143 mmol/L Normal 133-145 [facility] Urea nitrogen [Mass/Vol] 15 mg/dL Normal 8-25 [facility] Urea nitrogen/Creatinine [Mass ratio] 21.4 mg/mg High 8-21 [facility] PROTHROMBIN TIMEon 3 ANTICOAGULANT INFORMATION NOT REPORTED TO LABORATORY [facility] Comment on above: Performed By: #### P TB #### [address] [address] INR Coag (PPP) [Relative time] 1.0 {INR} Normal 0.86-1.16 [facility] Comment on above: Result Comment: INR Theraputic Range: 2.0-3.5 Performed at [place] [address] Performed By: #### P TB #### [address] [address] PT Coag (PPP) [Time] 10.3 s Normal 9.3-12.7 [facility] Comment on above: Performed By: #### P TB #### [address] [address] TYPE AND SCREENon 10-31-2022 TYPE AND SCREEN BLOOD COMPONENT TYPE - RED CELL GROUP Performed at [place] [address] UNITS ORDERED - 0 Performed at [place] [address] SPECIMEN EXPIRATION - 11/09/2022 Performed at [address] [address] ABO/RH(D) - A NEGATIVE Performed at [address] [address] ANTIBODY SCREEN - NEGATIVE Performed at [address] [address] ARM BAND NUMBER - [id number] Performed at [address] [address] SURGERY DATE - 11/06/22 [place] Performed at [address] [address] TEST ORDERED - TYPE AND SCREEN Performed at [place] [id number] PT TRANSFUSION HISTORY - BLOOD BANK RECORD SEARCH COMPLETED NO TRANSFUSIONS IN LAST 3 MOS NO PREVIOUS RECORD Performed at [address] Comment on above: Performed By: #### [facility] #### [facility] [address] [place] [address] UA-REFLEX TO CULTUREon 10-31 CAST Normal 0-3 [facility] Comment on above: Result Comment: OCC FINE GRAN Performed at [facility] [address] [facility] [address] RBC NONE SEEN Normal 0-3 [facility] Urinalysis dipstick W Reflex Microscopic panel (U) MANUAL MICROSCOPIC URINES Normal [facility] WBC NONE SEEN Normal 0-3 [facility] Bacteria identified Cx Nom (U) CULTURE NOT INDICATED Normal [facility] Comment on above: Result Comment: CULT URE NOT INDICATED Performed at [facility] [id number] [place] [id number] BILI Negative Normal NEG [facility] Clarity (U) CLEAR Normal [facility] Color (U) YELLOW Normal [facility] GLUC Negative Normal NEG [facility] Hemoglobin Ql (U) Negative Normal NEG [facility] KET Negative Normal NEG [facility] LEUK Negative Normal NEG [facility] NIT Negative Normal NEG [facility] pH (U) 7.0 [pH] Normal 4.6-8.0 [facility] PROT Negative Normal NEG [facility] SP GRAV,URINE 1.010 Normal 1.005-1.030 [facility] URO 0.2 MG/DL Normal 0-1.0 [facility] DXA-AXIAL SKELETONon 022 [facility] XR Chest PA and Lateralon IMPRESSION: No acute radiographic abnormality. Corporate Financial Analyst: NIK Transcribe Date/Time: Sep 06 2020 11:10A Dictated by : RANDY PENNINGTON MD This examination was interpreted and the report reviewed and electronically signed by: RANDY PENNINGTON MD on Sep 06 2020 11:13AM [facility] DIVISION OF RADIOLOGY * * *Final Report* * * DATE OF EXAM: Sep 06 2020 11:00AM WOX 5291 - XR CHEST 2V FRONTAL/LAT / PROCEDURE REASON: Chest tightness * * * * Physician Interpretation * * * * EXAMINATION: CHEST RADIOGRAPH (2 VIEW FRONTAL & LATERAL) CLINICAL HISTORY: Chest tightness MQ: XC2_6 EXAM DATE/TIME: 09/06/2020 11:00 AM COMPARISON: No relevant prior studies available. RESULT: Lines, tubes, and devices: Median sternotomy wires remain in place Lungs and pleura: No consolidation. No lung mass. No pleural effusion. No pneumothorax. Cardiomediastinal silhouette: Normal cardiomediastinal silhouette. Bones and soft tissues: Unremarkable. DIVISION OF RADIOLOGY Provider, [place] - 09/06/2020 * * *Final Report* * * DATE OF EXAM: Sep 06 2020 11:00AM WOX 5291 - XR CHEST 2V FRONTAL/LAT / PROCEDURE REASON: Chest tightness * * * * Physician Interpretation * * * * EXAMINATION: CHEST RADIOGRAPH (2 VIEW FRONTAL & LATERAL) CLINICAL HISTORY: Chest tightness MQ: XC2_6 EXAM DATE/TIME: 09/06/2020 11:00 AM COMPARISON: No relevant prior studies available. RESULT: Lines, tubes, and devices: Median sternotomy wires remain in place Lungs and pleura: No consolidation. No lung mass. No pleural effusion. No pneumothorax. Cardiomediastinal silhouette: Normal cardiomediastinal silhouette. Bones and soft tissues: Unremarkable. IMPRESSION IMPRESSION: No acute radiographic abnormality. Corporate Financial Analyst: [facility] Transcribe Date/Time: Sep 06 2020 11:10A Dictated by : RANDY PENNINGTON MD This examination was interpreted and the report reviewed and electronically signed by: RANDY PENNINGTON MD on Sep 06 2020 11:13AM EST [facility] Radiology Study observation (narrative) [facility] XR Chest PA and LateralOrder ed By: Ccf Provider on 09-06-2020 [facility] Clinical Summary: HMSPatient IDon 05-06-2018 OOP Invalid Interpretation Code [facility] Work Phone: Clinical Summary: Scanned RO S Summaryon 05-06-2018 endocrine ROS Denies Invalid Interpretation Code [facility] Work Phone: genitourinary review of systems, E&M Denies Invalid Interpretation Code [facility] Work Phone: Lymphocytes Auto #/vol (Bld) Denies Invalid Interpretation Code [facility] Work Phone: Review of Systems Neurologic comment Tingling Invalid Interpretation Code [facility] Work Phone: ROS cardiovascular E&M Denies Invalid Interpretation Code [facility] Work Phone: ROS ENT comment Impaired Hearing Invalid Interpretation Code [facility] Work Phone: ROS ENT E&M Complains Invalid Interpretation Code [facility] Work Phone: ROS gastrointestinal E&M Denies Invalid Interpretation Code [facility] Work Phone: ROS general E&M Denies Invalid Interpretation Code [facility] Work Phone: ROS Musculoskeletal comments Stiffness,Arthritis Invalid Interpretation Code [facility] Work Phone: ROS musculoskeletal E&M Complains Invalid Interpretation Code [facility] Work Phone: ROS neurological E&M Complains Invalid Interpretation Code [facility] Work Phone: ROS Psych comment Difficulty Sleeping Invalid Interpretation Code [facility] Work Phone: ROS psychiatric E&M Complains Invalid Interpretation Code [facility] Work Phone: ROS pulmonary E&M Denies Invalid Interpretation Code [facility] Work Phone: ROS skin E&M Denies Invalid Interpretation Code [facility] Work Phone: Office Visit: New - 1st visi t with practice, Rm: 105-06-2018 NEGATED: Highlighted rowMRI (magnetic resonance imaging) history of the cervical, thoracic and lumbar on 01/14/2018 at [facility] Invalid Interpretation Code [facility] Work Phone: NEGATED: Highlighted rowProtein mass conc Done Invalid Interpretation Code [facility] Work Phone: Clinical Lists Updateon 05-17 Left ventricular Ejection fraction 55 % [facility] Work Phone: Office Visiton 03-29-2016 Documentation of current medications (procedure) Done Invalid Interpretation Code [facility] Work Phone: Protein mass conc Done [facility] Work Phone: Tobacco smoking status NHIS Never smoker [facility] Work Phone: Tobacco use CPHS Never smoker Invalid Interpretation Code [facility] Work Phone: Replaced Document: Paxton Rodriguez 03-29-2016 EKG QRS axis 103 deg [facility] Work Phone: electrocardiogram interpretation Atrial Bradycardia P:QRS - 1:1, Abnormal P axis, H Rate 59-Right axis -consider right ventricular hypertrophy. ABNORMAL Invalid Interpretation Code [facility] Work Phone: GE use only - for LinkLogic import when terms are not otherwise specified 425 ms Invalid Interpretation Code [facility] Work Phone: Interpretation Atrial Bradycardia P:QRS - 1:1, Abnormal P axis, H Rate 59-Right axis -consider right ventricular hypertrophy. ABNORMAL [facility] Work Phone: P Gay -79 deg [facility] Work Phone: P wave axis, electrocardiogram -79 deg Invalid Interpretation Code [facility] Work Phone: ME Interval 120 ms [facility] Work Phone: ME interval, electrocardiogram 120 ms Invalid Interpretation Code [facility] Work Phone: Pulse (Heart Rate) 59 /min Invalid Interpretation Code [facility] Work Phone: QRS axis, electrocardiogram 103 deg Invalid Interpretation Code [facility] Work Phone: QRS Duration 92 ms [facility] Work Phone: QRS duration, electrocardiogram 92 ms Invalid Interpretation Code [facility] Work Phone: QT Interval new path ms [facility] Work Phone: QT interval, electrocardiogram new path ms Invalid Interpretation Code [facility] Work Phone: QTc [place] 425 ms [facility] Work Phone: T Gay 71 deg [facility] Work Phone: T wave axis, electrocardiogram 71 deg Invalid Interpretation Code [facility] Work Phone: Clinical Lists Update: Prelo sports lawyer 09-30-2015 Cholesterol 241 mg/dL [facility] Work Phone: HDL Cholesterol 80 mg/dL [facility] Work Phone: LDL Cholesterol 137 mg/dL [facility] Work Phone: Triglyceride 121 mg/dL [facility] Work Phone: very low density lipoproteins 24 mg/dL [facility] Work Phone: Lab Report: BMPon 03-02-2011 Calcium 9.7 mg/dL Normal 8.5-10.1 [facility] Work Phone: Chloride 102 mmol/L Normal 98-107 [facility] Work Phone: Creatinine 0.7 mg/dL Normal 0.6-1.0 [facility] Work Phone: Glucose 83 mg/dL Normal 70-110 [facility] Work Phone: Glucose mass conc 83 mg/dL Normal 70-110 [facility] Work Phone: Potassium 4.4 mmol/L Normal 3.5-5.1 [facility] Work Phone: Sodium 141 mmol/L Normal 136-145 [facility] Work Phone: Urea nitrogen 16 mg/dL Normal 7-18 [facility] Work Phone: Lab Report: CBCon 03-02-2011 Erythrocytes (RBC) 4.24 10*6/uL Normal 4.2-5.[address] [facility] Work Phone: Hematocrit (HCT) 41.0 % Normal 37-47 [facility] Work Phone: Hematocrit Volume Fraction (Bld) 41.0 % Normal 37-47 [facility] Work Phone: Hemoglobin (HGB) 13.8 g/dL Normal 12.0-16.0 [facility] Work Phone: Platelets 255 10*3/mm3 Normal 150-450 [facility] Work Phone: Platelets #/vol (Bld) 255 10*3/mm3 Normal 150-450 [facility] Work Phone: RBC #/vol (Bld) 4.24 10*6/uL Normal 4.2-5.4 [facility] Work Phone: WBC #/vol (Bld) 7.7 10*3/uL Normal 4.4-11.0 [facility] Work Phone: WBC (Leukocytes) 7.7 10*3/uL Normal 4.4-11.0 [facility] Work Phone: No Panel Information [facility] Vital Signs Date Time Vital Sign Value Performing Clinician Facility 06-05-2024 07:15-0400 Body mass index (BMI) [Ratio] 20.28 kg/m2 Doris Krishnamurthy APRN.SED SPECIAL EDUCATION TEACHER Work Phone: [facility] 06-05-2024 07:15-0400 Body temperature 97.81 [degF] Doris Krishnamurthy APRN.SED SPECIAL EDUCATION TEACHER Work Phone: [facility] 06-05-2024 07:15-0400 Body weight 53.6 kg Doris Krishnamurthy APRN.SED SPECIAL EDUCATION TEACHER Work Phone: [facility] 06-05-2024 07:15-0400 Diastolic blood pressure 59 mm[Hg] Doris Krishnamurthy BRUSHER MACHINE.SED SPECIAL EDUCATION TEACHER Work Phone: [facility] 06-05-2024 07:15-0400 Heart rate 68 /min Doris Krishnamurthy APRN.SED SPECIAL EDUCATION TEACHER Work Phone: [facility] 06-05-2024 07:15-0400 Respiratory rate 18 /min Doris Krishnamurthy APRN.SED SPECIAL EDUCATION TEACHER Work Phone: [facility] 06-05-2024 07:15-0400 SaO2% (BldA) [Mass fraction] 99 % Doris Krishnamurthy APRN.SED SPECIAL EDUCATION TEACHER Work Phone: [facility] 06-05-2024 07:15-0400 Systolic blood pressure 145 mm[Hg] Doris Krishnamurthy APRN.SED SPECIAL EDUCATION TEACHER Work Phone: [facility] 12-20-2023 14:06-0400 Body height 162.6 cm Kristyn Chao MD Work Phone: [facility] 12-20-2023 14:06-0400 Body weight 53.52 kg Kristyn Chao MD Work Phone: [facility] 12-20-2023 14:06-0400 Diastolic blood pressure 53 mm[Hg] Kristyn Chao MD Work Phone: [facility] 12-20-2023 14:06-0400 Heart rate 60 /min Kristyn Chao MD Work Phone: [facility] 12-20-2023 14:06-0400 SaO2% (BldA) [Mass fraction] 99 % Kristyn Chao MD Work Phone: [facility] 12-20-2023 14:06-0400 Systolic blood pressure 140 mm[Hg] Kristyn Chao MD Work Phone: [facility] 03-15-2023 11:19-0400 Body height 162.6 cm Kristyn Chao MD Work Phone: [facility] 03-15-2023 11:19-0400 Body weight 52.16 kg Kristyn Chao MD Work Phone: [facility] 03-15-2023 11:19-0400 Diastolic blood pressure 60 mm[Hg] Kristyn Chao MD Work Phone: [facility] 03-15-2023 11:19-0400 Heart rate 78 /min Kristyn Chao MD Work Phone: [facility] 03-15-2023 11:19-0400 SaO2% (BldA) [Mass fraction] 98 % Kristyn Chao MD Work Phone: [facility] 03-15-2023 11:19-0400 Systolic blood pressure 160 mm[Hg] Kristyn Chao MD Work Phone: [facility] 03-29-2016 12:11-0400 Heart rate 59 /min Alejandra Cruz [facility] Work Phone: 03-29-2016 11:48-0400 BMI (Body Mass Index) 21.39 kg/m2 Miesha Cintron RN [facility] Work Phone: 03-29-2016 11:48-0400 BP Diastolic 64 mm[Hg] Miesha Cintron RN [facility] Work Phone: 03-29-2016 11:48-0400 BP Systolic 144 mm[Hg] Miesha Cintron RN [facility] Work Phone: 03-29-2016 11:48-0400 BSA (Body Surface Area) 1.61 m2 Miesha Cintron RN [facility] Work Phone: 03-29-2016 11:48-0400 Weight 56.97 kg Miesha Cintron RN [facility] Work Phone: 03-27-2011 11:25-0400 Body Temperature 97.6 [degF] Miesha Cintron RN [facility] Work Phone: 03-27-2011 11:25-0400 Pulse (Heart Rate) 56 /min Miesha Cintron RN [facility] Work Phone: 03-27-2011 11:25-0400 Respiratory Rate 16 /min Miesha Cintron RN [facility] Work Phone: 03-06-2010 13:33-0400 Height 163.19 cm Miesha Cintron RN [facility] Work Phone: NEGATED: Highlighted [id number] 08:26-0400 BMI (Body Mass Index) 20.8 kg/m2 Emmanuelle Fenton SEARCH DIRECTOR [facility] Work Phone: NEGATED: Highlighted [id number] 08:26-0400 BP Diastolic 79 mm[Hg] Emmanuelle Fenton SEARCH DIRECTOR [facility] Work Phone: NEGATED: Highlighted [id number] 08:26-0400 BP Diastolic 77 mm[Hg] Emmanuelle Winklestine SEARCH DIRECTOR [facility] Work Phone: NEGATED: Highlighted [id number] 08:26-0400 BP Systolic 162 mm[Hg] Emmanuelle Winklestine SEARCH DIRECTOR [facility] Work Phone: NEGATED: Highlighted [id number] 08:26-0400 BP Systolic 156 mm[Hg] Emmanuelle Winklestine SEARCH DIRECTOR [facility] Work Phone: NEGATED: Highlighted [id number] 08:26-0400 Height 160.02 cm Emmanuelle Winklestine SEARCH DIRECTOR [facility] Work Phone: NEGATED: Highlighted [id number] 08:26-0400 Height 160 cm Emmanuelle Winklestine SEARCH DIRECTOR [facility] Work Phone: NEGATED: Highlighted [id number] 08:26-0400 Pulse (Heart Rate) 73 /min Emmanuelle Winklestine SEARCH DIRECTOR [facility] Work Phone: NEGATED: Highlighted [id number] 08:26-0400 Weight 53.07 kg Emmanuelle Winklestine SEARCH DIRECTOR [facility] Work Phone: NEGATED: Highlighted [id number] 08:26-0400 Weight 53 kg Emmanuelle Winklestine SEARCH DIRECTOR [facility] Work Phone: Encounters Encounter Date Encounter Type Care Provider Facility Start: 06-29-2024 End: 06-29-2024 Telephone encounter Kristyn Chao MD Work Phone: MD PROVIDER ADULT Comment on above: Follow Up Start: 06-05-2024 End: 06-05-2024 ambulatory DORIS KRISHNAMURTHY Facility:[facility] Start: 06-05-2024 End: 06-05-2024 Subsequent hospital visit by physician Pascual [facility] Work Phone: Radiology Comment on above: Acute cough [R05.1] Start: 06-05-2024 End: 06-05-2024 ambulatory OSCAR LEDEZMA Facility:[facility] Start: 06-05-2024 End: 06-05-2024 Patient encounter procedure Doris Krishnamurthy POP Work Phone: [facility] Comment on above: Acute cough (Primary Dx) Start: 01-29-2024 ambulatory Oscar galan MD Work Phone: Internal Medicine [facility] Start: 12-20-2023 End: 12-20-2023 Patient encounter procedure Kristyn Chao MD Work Phone: [facility] Comment on above: PAF (paroxysmal atri al fibrillation) (HCC) (Primary Dx); Palpitations; Valvular heart disease; History of mitral valve repair; History of tricuspid valve repair; At risk for stroke Start: 12-20-2023 End: 12-20-2023 ambulatory KRISTYN CHAO Facility:[facility] Start: 09-30-2023 End: 09-30-2023 ambulatory OSCAR LEDEZMA Facility:[facility] Start: 03-15-2023 End: 03-15-2023 Patient encounter procedure Kristyn Chao MD Work Phone: [facility] Comment on above: PAF (paroxysmal atri al fibrillation) (HCC) (Primary Dx); Palpitations; At risk for stroke; Valvular heart disease; History of mitral valve repair; History of tricuspid valve repair Start: 01-29-2023 ambulatory JUAN GOBEZIE Facility :UNKNOWN Start: 11-13-2022 ambulatory JUAN GOBEZIE Facility :UNKNOWN Start: 11-06-2022 End: 11-06-2022 ambulatory JUAN GOBEZIE Facility:UNKNOWN Start: 10-31-2022 ambulatory JUAN GOBEZIE Facility :UNKNOWN Start: 10-31-2022 Encounter for preprocedural laboratory examination JUAN MALUBELILLIANE Facility:UNKNOWN Start: 03-14-2022 ambulatory Oscar galan MD Work Phone: Internal Medicine [facility] [place] Start: 12-19-2021 End: 12-19-2021 Subsequent hospital visit by physician [facility] Work Phone: Radiology Comment on above: Encounter for screen ing for osteoporosis [Z13.820] Start: 09-06-2020 End: 09-06-2020 Subsequent hospital visit by physician Xr [facility] Work Phone: Radiology Comment on above: Chest tightness [R07 .89] Start: 05-06-2018 End: 05-12-2018 Patient encounter procedure Bladimir Luke DO Work Phone: [facility] [place] [facility] Work Phone: Procedures Date Procedure Procedure Detail Performing Clinician Start: 06-05-2024 Radiologic exam ches t 2 views Doris Krishnamurthy BRUSHER MACHINE.SED SPECIAL EDUCATION TEACHER Work Phone: Start: 12-20-2023 Ecg routine ecg w/le ast 12 lds w/i&r Kristyn Chao MD Work Phone: Start: 03-15-2023 Ecg routine ecg w/le ast 12 lds w/i&r Kristyn Chao MD Work Phone: Start: 12-27-2021 Colonoscopy Oscar Pablo MD Work Phone: Start: 12-19-2021 Dxa bone density kaylen dy 1/> sites axial skel John Bustillo BRUSHER MACHINE.SED SPECIAL EDUCATION TEACHER Work Phone: Start: 09-06-2020 Radiologic exam ches t 2 views Robyn Galeas PA-C Work Phone: Start: 09-06-2020 Adult depression scr eening assessment [facility] Work Phone: Start: 05-05-2020 Lipid 1996 panel - S dianelys or Plasma Kristyn Chao MD Work Phone: Start: 01-18-2020 Mammography [facility] Work Phone: Start: 01-21-2019 Colonoscopy [facility] Work Phone: Start: 05-06-2018 End: 05-12-2018 Blood pressure outside of normal parameters - follow-up documented Bladimir Luke DO Work Phone: Start: 05-06-2018 End: 05-12-2018 Current medications documented Bladimir Luke DO Work Phone: Start: 05-06-2018 End: 05-12-2018 Pain assessment documented as positive - follow-up documented Bladimir Luke DO Work Phone: Start: 05-06-2018 End: 05-12-2018 Tobacco non-user Bladimir Luek DO Work Phone: Start: 03-29-2016 End: 03-29-2016 Electrocardiogram, complete Germain Villanueva MD Start: 03-29-2016 End: 03-29-2016 Follow Up Appt 1 year Germain Srakar Start: 03-29-2016 End: 03-29-2016 PFM Germain Villanueva MD Plan of Treatment Date Care Activity Detail Author Start: 2033 RSV Vaccine (1 - 1-d ose 75+ series) RSV Vaccine (1 - 1-dose 75+ series) [facility] Start: 12-28-2031 Colonoscopy COLONOSCOPY [facility] Start: 12-28-2031 COLORECTAL CANCER SCREENING COLORECTAL CANCER SCREENING [facility] Start: 12-28-2031 Screening for malign ant neoplasm of colon [facility] Start: 10-31-2025 Diabetes Screening Diabetes Screenin g [facility] Start: 05-05-2025 Lipid panel Lipid Screening [facility] Start: 05-05-2025 LIPID SCREEN LIPID SCREEN [facility] Start: 12-24-2024 End: 12-24-2024 Patient encounter procedure 12/24/2024 3:00 PM EDT Office Visit [facility] [address] [place] [address] Kristyn Chao MD [address] [place] [address] [place] [phone] 12 month follow up [facility] Comment on above: 12 month follow up Start: 07-01-2024 End: 07-01-2024 Patient encounter procedure 07/01/2024 11:20 AM EDT Office Visit [facility] [address] [place] [address] Kristyn Chao MD [address] [place] [address] [place] [phone] (Fax) discuss treament options EKG/eo [facility] Comment on above: discuss treament opt ions EKG/eo Start: 05-17-2024 Covid-19 Vaccine ( season) Covid-19 Vaccine ( season) [facility] Start: 05-17-2024 Covid-19 Vaccine ( season) Covid-19 Vaccine () [facility] Start: 05-17-2024 Influenza vaccination Influenza Vacc ine (#1) [facility] Start: 11-21-2023 Advance Directive Discussion Advance Directive Discussion [facility] Start: 11-21-2023 Pneumococcal Vaccine : 65+ (1 of 1 - PCV) Pneumococcal Vaccine: 65+ (1 of 1 - PCV) [facility] Start: 09-16-2023 Behavioral Health Screening Behavioral Health Screening [facility] Start: 05-17-2023 Covid-19 Vaccine ( season) Covid-19 Vaccine ( season) [facility] Start: 05-17-2023 Influenza vaccination INFLUENZA (#1) [facility] Start: 04-30-2023 Urine microalbumin profile [facility] Start: 12-01-2022 SHINGRIX VACCINE (1 of 2) SHEARER GRIX VACCINE (1 of 2) [facility] Comment on above: Postponed from 11/20 (Declined at this time) Start: 09-16-2022 DEPRESSION ASSESSMENT DEPRESSION ASS ESSMENT [facility] Start: 05-17-2022 Influenza vaccination C [facility] Start: 02-04-2022 DIABETES SCREEN DIABETES SCREEN [facility] Start: 12-09-2021 COVID-19 VACCINE (4 - Booster for Pfizer series) COVID-19 VACCINE (4 - Booster for Pfizer series) [facility] Start: 10-06-2021 COVID-19 VACCINE (5 - Pfizer series) COVID-19 VACCINE (5 - Pfizer series) [facility] Start: 09-06-2021 Adult depression screening assessment DEPRESSION SCREENING [facility] Start: 01-17-2021 Mammography MAMMOGRAM [facility] Start: 01-17-2021 Screening for malign ant neoplasm of breast Mammogram Screening [facility] Start: 10-06-2019 Colonoscopy COLONOSCOPY [facility] Start: 10-06-2019 COLORECTAL CANCER SCREENING COLORECTAL CANCER SCREENING [facility] Start: 2018 RSV Vaccine (1 - 1-d ose 60+ series) RSV Vaccine (1 - 1-dose 60+ series) [facility] Start: 05-06-2018 End: 05-06-2018 25 hydroxy includes fractions if performed 25-hydroxyvitamin D [facility] Work Phone: Start: 05-06-2018 End: 05-09-2018 Bone &/joint imaging whole body Bone and or joint imaging - whole body [facility] Work Phone: Start: 05-06-2018 End: 05-06-2018 CBC with Differential CBC with Differential [facility] Work Phone: Start: 05-06-2018 End: 05-06-2018 Dxa bone density study 1/> sites axial skel DXA - standard order of spine and hip; axial skeleton 1 + views [facility] Work Phone: Start: 05-06-2018 End: 05-06-2018 Protein mass conc [facility] Work Phone: Start: 05-06-2018 End: 05-06-2018 Radex spine lumbosacral minimum 4 views XR LUMBAR 4VWS FLEX/EX [facility] Work Phone: Start: 05-06-2018 End: 05-06-2018 Sedimentation rate rbc automated Erythrocytes sedimentation rate (ESR) [facility] Work Phone: Start: 05-06-2018 End: 05-06-2018 Unlis neurological/neuromuscula r dx px EMG/NCT bilateral lower extremity [facility] Work Phone: Start: 04-03-2017 End: 04-03-2017 Appointment Appointment [facility] Work Phone: Start: 03-29-2016 End: 03-29-2016 *Hepatic Function Panel *Hepatic Function Panel [facility] Work Phone: Start: 03-29-2016 End: 03-29-2016 Echocardiography Echocardiogram (complete) [facility] Work Phone: Start: 03-29-2016 End: 03-29-2016 Electrocardiogram, complete EKG (In office) [facility] Work Phone: Start: 03-29-2016 End: 03-29-2016 Follow Up Appt 1 year Follow Up Appt 1 year [facility] Work Phone: Start: 03-29-2016 End: 03-29-2016 Lipid panel [AGGREGATE] *Lipid Profile CC PCP [facility] Work Phone: Start: 03-29-2016 End: 03-29-2016 PFM PFM [facility] Work Phone: Start: 2008 SHINGRIX VACCINE (1 of 2) SHEARER GRIX VACCINE (1 of 2) [facility] Start: 11-21-2003 COLOGUARD (FIT-DNA) COLOGUARD (FIT-D NA) [facility] Start: 11-21-[address] COLONOGRAPHY [facility] Start: 11-21-2003 FECAL OCCULT BLOOD FECAL OCCULT BLOO D [facility] Start: 11-21-2003 Screening for malign ant neoplasm of colon [facility] Start: 11-21-2003 [facility]COPY [facility] Start: 1976 Anxiety Screening Anxiety Screening [facility] Start: 1976 Depression Screening Depression Scre ening [facility] End: 02-27-2025 MG Breast Screening [facility] SCREENING Radiology Routine Encounter for screening mammogram for breast cancer 1 Occurrences starting 01/29/2024 until 02/27/2025 [facility] Work Phone: Comment on above: 1 Occurrences starti ng 01/29/2024 until 02/27/2025 Patient Education \cps-sql1\CPS_ PtEducati on\htn.pdf [facility] [place] [facility] Work Phone: End: 04-13-2023 Screening mammography bi 2-view breast inc cad [facility]JAN SCREENING Radiology Routine Encounter for screening mammogram for breast cancer 1 Occurrences starting 03/14/2022 until 04/13/2023 [facility] Work Phone: Comment on above: 1 Occurrences starti ng 03/14/2022 until 04/13/2023 [facility] Immun[facility] Immunization Date Immunization Notes Care Provider Enmanuel watson 08-16-2023 influenza, injectable, quadrivalent, preservative free Kristyn Chao MD Work Phone: [facility] 08-16-2023 influenza virus vaccine, unspecified formulation Doris Krishnamurthy APRN.SED SPECIAL EDUCATION TEACHER Work Phone: [facility] 08-08-2022 COVID-19 vaccine, ag e 12+ yr, bivalent (PFIZER-BIONTECH) Kristyn Chao MD Work Phone: [facility] 07-13-2022 influenza, injectable, quadrivalent, contains preservative Kristyn Chao MD Work Phone: [facility] Work Phone: 07-13-2022 Seasonal, quadrivalent, recombinant, injectable influenza vaccine, preservative free Kristyn Chao MD Work Phone: [facility] 08-11-2021 COVID-19 original vaccine, age 12+ yr, monovalent (PFIZER-BIONTECH - PURPLE TOP) Kristyn Chao MD Work Phone: [facility] 12-02-2020 COVID-19 vaccine, ag e 12+ yr (PFIZER-BIONTECH - PURPLE TOP) [facility] Work Phone: [facility] 11-11-2020 COVID-19 vaccine, ag e 12+ yr (PFIZER-BIONTECH - PURPLE TOP) [facility] Work Phone: [facility] 07-23-2020 influenza, injectable, quadrivalent, preservative free [facility] Work Phone: [facility] 04-30-2013 tetanus toxoid, reduced diphtheria toxoid, and acellular pertussis vaccine, adsorbed [facility] Work Phone: [facility] Work Phone: No information available. Emmanuelle Fenton LPN [facility] Work Phone: Payers Date Payer Category Payer Private Health Insurance [facility] [employer] [id number] 2012-Present [phone] [address] [address] [place] [address] HMO [id number] 2012 Private Health Insurance [facility] [employer] [id number] 2012-Present [phone] [address] [address] [place] [address] HMO [id number] 2012 Private Health Insurance [id number] 1960 Unknown [id number] 1960 Unknown [id number] 1960 Unknown [id number] 1960 Unknown [id number] Social History Date Type Detail Facility Start: 05-12-2018 End: 05-12-2018 Assertion Unknown if ever smoked [facility] Work Phone: Start: 10-24-2011 Tobacco smoking status NHIS Never smoked tobacco [facility] Work Phone: Start: 12-01-2021 End: 06-05-2024 Alcohol intake Current non-drinker of alcohol (finding) [facility] Start: 09-06-2020 History SDOH Alcohol Frequency 2 [facility] Start: 09-06-2020 History SDOH Alcohol Std Drinks 1 [facility] Start: 09-06-2020 History SDOH Social Connections Mormonism 3 [facility] Start: 09-06-2020 History SDOH Financial 5 [facility] Start: 09-06-2020 Education 12 [facility] Start: 1960 Sex Assigned At Female [facility] Start: 08-07-2020 End: 12-18-2021 Exposure to SARS-CoV-2 (event) Not sure [facility] Work Phone: Start: 10-24-2011 Tobacco use and exposure Smokeless tobacco non-user [facility] Start: 03-15-2023 End: 09-30-2023 History of Social function [facility] Start: 03-15-2023 End: 09-30-2023 Tobacco use panel [facility] Start: 09-06-2020 Gender identity Identifies as female gender (finding) [facility] Start: 09-11-2021 Sexual orientation Heterosexual (finding) [facility] Do you belong to any clubs or organizations such as sikhism groups, unions, fraternal or athletic groups, or school groups? Yes [facility] Are you now , , , , never or living with a partner? [facility] How often to you hav e a drink containing alcohol? Never [facility] How many standard dr inks containing alcohol do you have on a typical day? Patient does not drink [facility] Do you feel stress - tense, restless, nervous, or anxious, or unable to sleep at night because your mind is troubled all the time - these days [OSQ] Only a little [facility] (I/We) worried wheth er (my/our) food would run out before (I/we) got money to buy more. Never true [facility] In the past 12 month s, was there a time when you were not able to pay the mortgage or rent on time? No [facility] How often to you hav e a drink containing alcohol? Monthly or less [facility] How many standard dr inks containing alcohol do you have on a typical day? 1 or 2 [facility] Do you feel stress - tense, restless, nervous, or anxious, or unable to sleep at night because your mind is troubled all the time - these days [OSQ] Not at all [facility] Clinical Notes 11-07-2016 to 06-29-2024 Telephone Encounter - Leann Davison - 06/29/2024 3:30 PM EDTTelephone Encounter - Leann Davison - 06/29/2024 3:30 PM EDTTelephone Encounter - Kristyn Chao MD - 06/29/2024 2:23 PM EDT Note Date & Type Note Facility 06-29-2024 Telephone encounter Note Spoke with patient and she is scheduled 07/01 Leann Davison [facility] 06-29-2024 Miscellaneous Notes Spoke with patient and she is scheduled 07/01 Leann Davison [facility] [place] [facility] Electrophysiology (EP) Dr. Cash of [facility] is requesting that Ms. Beltran be seen sooner than 12/2024 scheduled follow up. She is having severely symptomatic atrial fibrillation and wants to discuss treatment options such as catheter ablation. Please offer her an appointment within the next month or two. Kristyn Chao MD June 29, 2024 2:24 PM documented in this encounter [facility] 06-29-2024 Telephone encounter Note [facility] [place] [facility] Electrophysiology (EP) Dr. Cash of [facility] is requesting that Ms. Beltran be seen sooner than 12/2024 scheduled follow up. She is having severely symptomatic atrial fibrillation and wants to discuss treatment options such as catheter ablation. Please offer her an appointment within the next month or two. Kristyn Chao MD June 29, 2024 2:24 PM [facility] 06-05-2024 Instructions Doris Krishnamurthy APRN.CNP - 06/05/2024 8:43 AM EDT Tessalon Perles 2 every 8 hours, do not combine this with robitussin or delsym * Prednisone 40 mg (2 tablets) per day for 5 days, take in morning or early in day * Do not NSAIDs during this 5 day course (ibuprofen, naproxen, Motrin, Aleve, Advil) Tylenol only during prednisone use * Follow up with primary care provider if no improvement with treatment * Seek medical care immediately, call 911, go to ER if you have chest pain, difficulty breathing, shortness of breath, inability to swallow. documented in this encounter [facility] 06-05-2024 History of Present illness Narrative Radiology Service Progress Note PATIENT NAME: Luz Beltran DATE OF SERVICE: June 05, 2024 TIME: 8:21 AM PATIENT IDENTITY VERIFICATION COMPLETED USING TWO (2) IDENTIFIERS: Name and Date of confirmed by patient verbally. FALL SCREENING: Has the patient had 2 falls in the last year or 1 fall with injury or currently using an Ambulatory Assistive Device (Walker, Cane, Wheelchair, Crutches, etc.)? No PATIENT GENDER DATA: Female. status: : No status: NO. PATIENT RELEVANT IMPLANT DATA REVIEWED: Not Applicable PATIENT PRESENTS WITH AN IMPLANTABLE OR ATTACHED LASER SET UP OPERATOR: No RADIOLOGY DEPARTMENT: General X-ray: Exam(s) Completed: Chest X-Ray PERIPHERAL IV DATA: Not applicable SIGNED BY: RT Susan(R) June 05, 2024 8:21 AM documented in this encounter [facility] 06-05-2024 Note HNO ID: [id number] Author: AUNDREA FIELD RT(Tanner) Service: Radiology Author Type: Technologist Type: Progress Notes Filed: 06/05/2024 08:27 Note Text: Radiology Service Progress Note PATIENT NAME: Luz Beltran DATE OF SERVICE: June 05, 2024 TIME: 8:21 AM PATIENT IDENTITY VERIFICATION COMPLETED USING TWO (2) IDENTIFIERS: Name and Date of confirmed by patient verbally. FALL SCREENING: Has the patient had 2 falls in the last year or 1 fall with injury or currently using an Ambulatory Assistive Device (Walker, Cane, Wheelchair, Crutches, etc.)? No PATIENT GENDER DATA: Female. status: : No status: NO. PATIENT RELEVANT IMPLANT DATA REVIEWED: Not Applicable PATIENT PRESENTS WITH AN IMPLANTABLE OR ATTACHED LASER SET UP OPERATOR: No RADIOLOGY DEPARTMENT: General X-ray: Exam(s) Completed: Chest X-Ray PERIPHERAL IV DATA: Not applicable SIGNED BY: RT Susan(R) June 05, 2024 8:21 AM [facility] 06-05-2024 Note HNO ID: [id number] Author: DORIS KRISHNAMURTHY APRN.SED SPECIAL EDUCATION TEACHER Service: ? Author Type: Nurse Practitioner Type: Progress Notes Filed: 06/05/2024 08:43 Note Text: Subjective Cough Pertinent negatives include no chest pain, no chills, no ear pain, no headaches, no sore throat, no myalgias, no shortness of breath and no wheezing. HPI Luz Beltran is a 63 year old female who presents today for CC of cough for 3 weeks that won't go away. She states in the beginning she did have some nasal drainage, scratchy throat. She denies any fever chills, body aches. BP 145/59 Pulse 68 Temp 36.6 ?C (97.8 ?F) Resp 18 Wt 53.6 kg (118 lb 2.7 oz) SpO2 99% BMI 20.28 kg/m? Social History Tobacco Use Smoking status: Never Smokeless tobacco: Never Vaping Use Vaping status: Never Used Substance Use Topics Alcohol use: No Drug use: No PAST MEDICAL HISTORY Diagnosis Date Arthritis At risk for stroke C. difficile diarrhea 04/28/2012 Chest pain COVID-19 08/24/2020 DDD (degenerative disc disease), lumbar 10/06/2018 Dr. Benjamin Luke, [facility]. Diseases of tricuspid valve Dry eyes 05/25/2020 Zofia Vasquez MD, [facility] Dry mouth 05/25/2020 History of anal fissures 2005 [facility] History of mitral valve repair History of transfusion History of tricuspid valve repair HLD (hyperlipidemia) Low back pain 06/24/2014 Lyme disease Migraine Mitral valve disorders(424.0) 2004 Myofascial pain 06/24/2014 Osteopenia, senile 10/06/2018 PAF (paroxysmal atrial fibrillation) (HCC) Palpitations 03/15/2023 PONV (postoperative nausea and vomiting) Reactive airway disease without complication 10/14/2015 Sjogren's disease (HCC) SOB (shortness of breath) I have confirmed and edited as necessary, the [facility] Review of Systems Constitutional: Negative for chills and fever. HENT: Negative for congestion, ear pain, sinus pain and sore throat. Respiratory: Positive for cough. Negative for sputum production, shortness of breath and wheezing. Cardiovascular: Negative for chest pain. Musculoskeletal: Negative for myalgias. Neurological: Negative for headaches. Objective Physical Exam Vitals and nursing note reviewed. HENT: Head: Normocephalic and atraumatic. Right Ear: Tympanic membrane, ear canal and external ear normal. Left Ear: Tympanic membrane, ear canal and external ear normal. Nose: No mucosal edema, congestion or rhinorrhea. Right Sinus: No maxillary sinus tenderness or frontal sinus tenderness. Left Sinus: No maxillary sinus tenderness or frontal sinus tenderness. Mouth/Throat: Pharynx: Uvula midline. No oropharyngeal exudate or posterior oropharyngeal erythema. Cardiovascular: Rate and Rhythm: Normal rate and regular rhythm. Heart sounds: Normal heart sounds. Pulmonary: Effort: Pulmonary effort is normal. Breath sounds: Normal breath sounds. Decreased air movement present. Lymphadenopathy: Head: Right side of head: No submental, submandibular or tonsillar adenopathy. Left side of head: No submental, submandibular or tonsillar adenopathy. Cervical: No cervical adenopathy. Skin: General: Skin is warm and dry. Neurological: Mental Status: She is alert. Psychiatric: Mood and Affect: Affect normal. ASSESSMENT/PLAN: 1. Acute cough - ICD9: 786.2, ICD10: R05.1 Appears to be post viral, inflammatory - XR CHEST 2V FRONTAL/LAT RESULT: Lines, tubes, and devices: None. Lungs and pleura: No consolidation. No lung mass. No pleural effusion. No pneumothorax. Cardiomediastinal silhouette: Normal cardiomediastinal silhouette. Bones and soft tissues: Status post median sternotomy, with mitral valve and tricuspid valve annuloplasty. IMPRESSION: No acute radiographic abnormality. Interpreted by : TITI BUTLER MD Diagnosis and treatment plan were discussed and questions were answered to the patient's satisfaction. Pt acknowledged understanding of concepts and follow up plan. Specific signs and symptoms that would indicate the need for higher level of care were discussed in detail warranting prompt ER evaluation. Doris Krishnamurthy APRN.[facility] 06-05-2024 History of Present illness Narrative Subjective Cough Pertinent negatives include no chest pain, no chills, no ear pain, no headaches, no sore throat, no myalgias, no shortness of breath and no wheezing. ANNA Beltran is a 63 year old female who presents today for CC of cough for 3 weeks that won't go away. She states in the beginning she did have some nasal drainage, scratchy throat. She denies any fever chills, body aches. BP 145/59 Pulse 68 Temp 36.6 C (97.8 F) Resp 18 Wt 53.6 kg (118 lb 2.7 oz) SpO2 99% BMI 20.28 kg/m Social History Tobacco Use Smoking status: Never Smokeless tobacco: Never Vaping Use Vaping status: Never Used Substance Use Topics Alcohol use: No Drug use: No PAST MEDICAL HISTORY Diagnosis Date Arthritis At risk for stroke C. difficile diarrhea 04/28/2012 Chest pain COVID-19 08/24/2020 DDD (degenerative disc disease), lumbar 10/06/2018 Dr. Benjamin Luke, [facility]. Diseases of tricuspid valve Dry eyes 05/25/2020 Zofia Vasquez MD, [facility] Dry mouth 05/25/2020 History of anal fissures 2006 [place] History of mitral valve repair History of transfusion History of tricuspid valve repair HLD (hyperlipidemia) Low back pain 06/24/2014 Lyme disease Migraine Mitral valve disorders(424.0) 2004 Myofascial pain 06/24/2014 Osteopenia, senile 10/06/2018 PAF (paroxysmal atrial fibrillation) ([facility]) Palpitations 03/15/2023 PONV (postoperative nausea and vomiting) Reactive airway disease without complication 10/14/2015 Sjogren's disease (HCC) SOB (shortness of breath) I have confirmed and edited as necessary, the [facility] Review of Systems Constitutional: Negative for chills and fever. HENT: Negative for congestion, ear pain, sinus pain and sore throat. Respiratory: Positive for cough. Negative for sputum production, shortness of breath and wheezing. Cardiovascular: Negative for chest pain. Musculoskeletal: Negative for myalgias. Neurological: Negative for headaches. Objective Physical Exam Vitals and nursing note reviewed. HENT: Head: Normocephalic and atraumatic. Right Ear: Tympanic membrane, ear canal and external ear normal. Left Ear: Tympanic membrane, ear canal and external ear normal. Nose: No mucosal edema, congestion or rhinorrhea. Right Sinus: No maxillary sinus tenderness or frontal sinus tenderness. Left Sinus: No maxillary sinus tenderness or frontal sinus tenderness. Mouth/Throat: Pharynx: Uvula midline. No oropharyngeal exudate or posterior oropharyngeal erythema. Cardiovascular: Rate and Rhythm: Normal rate and regular rhythm. Heart sounds: Normal heart sounds. Pulmonary: Effort: Pulmonary effort is normal. Breath sounds: Normal breath sounds. Decreased air movement present. Lymphadenopathy: Head: Right side of head: No submental, submandibular or tonsillar adenopathy. Left side of head: No submental, submandibular or tonsillar adenopathy. Cervical: No cervical adenopathy. Skin: General: Skin is warm and dry. Neurological: Mental Status: She is alert. Psychiatric: Mood and Affect: Affect normal. ASSESSMENT/PLAN: 1. Acute cough - ICD9: 786.2, ICD10: R05.1 Appears to be post viral, inflammatory - XR CHEST 2V FRONTAL/LAT RESULT: Lines, tubes, and devices: None. Lungs and pleura: No consolidation. No lung mass. No pleural effusion. No pneumothorax. Cardiomediastinal silhouette: Normal cardiomediastinal silhouette. Bones and soft tissues: Status post median sternotomy, with mitral valve and tricuspid valve annuloplasty. IMPRESSION: No acute radiographic abnormality. Interpreted by : TITI BUTLER MD Diagnosis and treatment plan were discussed and questions were answered to the patient's satisfaction. Pt acknowledged understanding of concepts and follow up plan. Specific signs and symptoms that would indicate the need for higher level of care were discussed in detail warranting prompt ER evaluation. Doris Krishnamurthy APRN.SED SPECIAL EDUCATION TEACHER documented in this encounter [facility] 01-29-2024 Note Patient Outreach (IN [facility]) LUZ BELTRAN ([id number]) 1960 F Date Time Provider Department 01/29/24 OSCAR LEDEZMA During your visit today, we recorded the following information about you: Allergies As of Date: 01/29/2024 Noted Allergy Reaction Inderal [Other] 07/09/1998 1 - Mental Status Change Comments: Depression Date Reviewed: 12/20/2023 Reviewed by: Kristyn Chao MD - Fully Assessed Visit Diagnosis:Encounter for screening mammogram for breast cancer [Z12.31] Order(s):MARJAN SCREENING [[id number]] Order #: [id number] FUTURE Prescriptions as of 02/03/2024 - metoprolol succinate ER (TOPROL XL) 25 mg 24 hr tablet Take 25 mg by mouth once daily. - aspirin 325 mg tablet Take 325 mg by mouth once daily. - cycloSPORINE (RESTASIS) 0.05 % ophthalmic emulsion 1 Drop twice daily. - atorvastatin (LIPITOR) 20 mg tablet Take 20 mg by mouth daily at bedtime. - cholecalciferol (VITAMIN D3) 5,000 unit tab Take 5,000 Units by mouth once daily. - Weston-3 Fatty Acids 300 mg cap Take by mouth. Problem List As Of Date 01/29/2024 Noted Resolved Mitral valve disorders [I05.9] 06/03/1997 Class: Chronic Migraine [346] 06/03/1997 08/11/2013 Class: Chronic Possible Lyme Disease [A69.20] 04/25/2012 09/22/2015 C. difficile diarrhea [A04.72] 04/28/2012 08/11/2013 Disorders of sacrum [M53.3] 01/13/2014 06/25/2017 Low back pain [M54.50] 06/24/2014 06/25/2017 Myofascial pain [M79.18] 06/24/2014 06/25/2017 Buttock pain [M79.18] 06/24/2014 06/25/2017 Claustrophobia [F40.240] 11/07/2016 06/25/2017 DDD (degenerative disc disease), lumbar [M51.36]10/06/2018 Osteopenia, senile [M85.80] 10/06/2018 Dry eyes [H04.123] 05/25/2020 Dry mouth [R68.2] 05/25/2020 Sjoegren syndrome (HCC) [M35.00] 12/01/2021 Valvular heart disease [I38] 12/01/2021 Shortness of breath [R06.02] 02/14/2023 Acute sinusitis [J01.90] 02/14/2023 03/13/2023 PAF (paroxysmal atrial fibrillation) (HCC) [I48*03/13/2023 At risk for stroke [Z91.89] 03/13/2023 History of mitral valve repair [Z98.890] 03/13/2023 History of tricuspid valve repair [Z98.890] 03/13/2023 Palpitations [R00.2] 03/15/2023 Encounter Status:Closed by EPIC, PRODUSER on 02/03/24 [facility] 12-20-2023 Nurse Note No cardiac concerns today documented in this encounter [facility] 12-20-2023 History of Present illness Narrative PRIMARY CARE PHYSICIAN: Oscar Ledezma [address] [place] [address] Patient Care Team: Oscar Ledezma MD as PCP - General (Internal Medicine) Miesha Drake PA as Physician Hydroelectric Plant Electrician (Pulmonary and Critical Care Medicine) Franky Taylor MD as Specialty Meteorological Technician (Cardiology) Kristyn Chao MD as Specialty Meteorological Technician (Cardiology) CHIEF COMPLAINT: Follow up for arrhythmia HISTORY OF PRESENT ILLNESS: Ms. Beltran is a 63 year old female who presents today for a cardiovascular medicine follow-up visit. History copied from previous notes, edited as needed: Summary of previous notes: Ms. Beltran has cardiac history significant for mitral valve disease, with mitral valve prolapse and mitral regurgitation. She underwent valve surgery in 2003, she had mitral and tricuspid valve repairs. She states that she has experienced palpitations her entire life -- but have been more frequent and more bothersome recently. She states that she has been under increased stress more recently. She was previously on propranolol in the past. She states that she underwent surgery for her right shoulder in October 2022, she had the surgery due to a torn bicep and frozen shoulder. There was some issue with arrhythmia, she was told she had intermittent atrial fibrillation. She wore a adjuster piano action for 30 days. She also had a 48-hour ambulatory Holter monitor in May 2022. The cardiac monitoring revealed paroxysmal atrial fibrillation. She does not have high risk for stroke from atrial fibrillation, currently would not push hard for oral anticoagulation therapy at this point. I think a rate controlling medication could help alleviate some of her symptoms. She evidently did not tolerate propranolol in the past due to side effects, possibly depression. This might be a class effect that she might experience with any of the beta-blockers, but it is reasonable to consider trying metoprolol or atenolol. Another option would be a nondihydropyridine calcium channel felix such as diltiazem. I would not at this point advocate or recommend for advanced treatment strategies such as antiarrhythmic drug therapy or catheter ablation. The antiarrhythmic drug options would be somewhat limited due to the existing bundle branch block, particularly with the Class IC agents (flecainide, propafenone) that have more direct impact on AV conduction intervals. Interim History Dr. Chao 12/20/2023: Ms. Beltran presents for follow-up evaluation for paroxysmal atrial fibrillation. She states that she has been much better with the metoprolol medication. She states she has been doing well overall. Metoprolol helped a lot. This past Saturday she had symptoms suggestive of atrial fibrillation, lasted about 10 minutes, with racing heartbeats, palpitations. She has an Apple Watch, which indicated atrial fibrillation. Episodes have not been frequent, previous episode was about 6 or 7 weeks prior. She is under a lot of stress, her mother has not been well. She denies chest pain, shortness of breath, orthopnea, PND, syncope. I have confirmed and edited as necessary, the PFSH and ROS obtained by others. PAST MEDICAL HISTORY Diagnosis Date Arthritis At risk for stroke C. difficile diarrhea 04/28/2012 Chest pain COVID-19 08/24/2020 DDD (degenerative disc disease), lumbar 10/06/2018 Dr. Benjamin Luke, [facility]. Diseases of tricuspid valve Dry eyes 05/25/2020 Zofia Vasquez MD, [facility] Dry mouth 05/25/2020 History of anal fissures 2005 [place] History of mitral valve repair History of transfusion History of tricuspid valve repair HLD (hyperlipidemia) Low back pain 06/24/2014 Lyme disease Migraine Mitral valve disorders(424.0) 2003 Myofascial pain 06/24/2014 Osteopenia, senile 10/06/2018 PAF (paroxysmal atrial fibrillation) (HCC) Palpitations 03/15/2023 PONV (postoperative nausea and vomiting) Reactive airway disease without complication 10/14/2015 Sjogren's disease (HCC) SOB (shortness of breath) PAST SURGICAL HISTORY Procedure Laterality Date CARDIAC VALVE SURGERY HX 02/03/2004 Mitral valve and Tricuspid valve repair; [facility] COLONOSCOPY 12/27/2021 repeat in 10 years FISSURECTOMY INCL SPHINCTEROTOMY WHEN PERFORMED 09/16/2005 Connie LEFT HEART CATH,PERCUTANEOUS 12/13/2003 Cardiac cath, L heart PAST SURGICAL HISTORY OF 09/16/2010 glass removed from middle finger right hand - Dr. Weinstein [facility] TOTAL ABDOMINAL HYSTERECT W/WO RMVL TUBE OVARY 09/16/2001 Hysterectomy, YUSUF VAGINAL HYSTERECTOMY SOCIAL HISTORY Social History Tobacco Use Smoking status: Never Smokeless tobacco: Never Vaping Use Vaping Use: Never used Substance Use Topics Alcohol use: No Drug use: No FAMILY HISTORY Problem Relation Age of Onset COPD Mother other (diverticulitis) Mother other (sciatica) Mother Heart Failure Mother Kidney Disease Mother Heart Attack Father Dementia Father Heart disease Father CABG No Known Problems Brother Heart disease Maternal Grandmother CABG Diabetes Maternal Grandmother ALLERGIES: ALLERGIES Allergen Reactions Inderal [Other] Mental Status Change Depression MEDICATIONS: metoprolol succinate ER (TOPROL XL) 25 mg 24 hr tablet Take 25 mg by mouth once daily. aspirin 325 mg tablet Take 325 mg by mouth once daily. cycloSPORINE (RESTASIS) 0.05 % ophthalmic emulsion 1 Drop twice daily. atorvastatin (LIPITOR) 20 mg tablet Take 20 mg by mouth daily at bedtime. cholecalciferol (VITAMIN D3) 5,000 unit tab Take 5,000 Units by mouth once daily. Weston-3 Fatty Acids 300 mg cap Take by mouth. Review of Systems Constitutional: Negative for chills, fever and weight loss. Respiratory: Negative for cough, hemoptysis, sputum production, shortness of breath and wheezing. Cardiovascular: Positive for palpitations. Negative for chest pain, orthopnea, claudication, leg swelling and PND. Gastrointestinal: Negative for abdominal pain, blood in stool, melena, nausea and vomiting. Genitourinary: Negative for dysuria and hematuria. Musculoskeletal: Negative for falls and myalgias. Skin: Negative for rash. Neurological: Negative for dizziness, focal weakness, seizures and loss of consciousness. Psychiatric/Behavioral: She states she is under a lot of stress PHYSICAL EXAMINATION: BP 140/53 Pulse 60 Ht 5' 4 (1.63m) Wt 118 lb (53.5kg) SpO2 99% BMI 20.24 kg/(m^2). Physical Exam Vitals reviewed. Constitutional: General: She is not in acute distress. Appearance: Normal appearance. HENT: Head: Normocephalic and atraumatic. Cardiovascular: Rate and Rhythm: Normal rate and regular rhythm. Heart sounds: Normal heart sounds, S1 normal and S2 normal. No murmur heard. No friction rub. Pulmonary: Effort: Pulmonary effort is normal. No respiratory distress. Breath sounds: Normal breath sounds. No wheezing, rhonchi or rales. Musculoskeletal: Cervical back: Neck supple. Right lower leg: No edema. Left lower leg: No edema. Skin: General: Skin is warm and dry. Neurological: General: No focal deficit present. Mental Status: She is alert and oriented to person, place, and time. Psychiatric: Mood and Affect: Mood normal. Behavior: Behavior normal. Thought Content: Thought content normal. CARDIOVASCULAR MEDICINE TESTING: Electrocardiogram: Probably ectopic atrial rhythm 67 bpm (negative P waves in inferior leads); PVCs; normal ME interval 154 ms; right bundle branch block (QRS 114 ms); criteria for septal infarct; QTc 471 ms; similar to previous EKGs I have personally reviewed the Electrocardiogram. I spent a total of 35 minutes on the date of the service which included preparing to see the patient, [id number] patient care, completing clinical documentation, obtaining and/or reviewing separately obtained history, performing a medically appropriate examination, counseling and educating the patient/family/caregiver, ordering medications, tests, or procedures, communicating with other HCPs (not separately reported), independently interpreting results (not separately reported), communicating results to the patient/family/caregiver, and care coordination (not separately reported). 1. PAF (paroxysmal atrial fibrillation) (HCC) - ICD9: 427.31, ICD10: I48.0 (primary diagnosis) 2. Palpitations - ICD9: 785.1, ICD10: R00.2 3. Valvular heart disease - ICD9: 424.90, ICD10: I38 4. History of mitral valve repair - ICD9: V15.1, ICD10: Z98.890 5. History of tricuspid valve repair - ICD9: V15.1, ICD10: Z98.890 6. At risk for stroke - ICD9: V15.89, ICD10: Z91.89 [id number] score = 2 (age, female gender) ----- this particular combination of risk factors is considered borderline or intermediate risk for stroke, compared with the same score involving a stronger risk factor such as HTN. IMPRESSION: Ms. Beltran seems to be reasonably stable with regards to the atrial fibrillation. She has experienced improvement with her symptoms with treatment with a beta-felix and she is tolerating this well. For now we will continue with this treatment strategy, and not escalate the therapy with more advanced strategies such as antiarrhythmic drug therapy or catheter ablation. I had a detailed discussion with Ms. Beltran regarding my evaluation and recommendations. After our discussion, Ms. Beltran expressed her understanding and I answered all her questions to her apparent satisfaction. PLAN AND RECOMMENDATIONS: Continue with current plan of care from EP standpoint. Return in about 1 year (around 12/19/2024) for Dr. Chao, [place] office. Kristyn Chao MD 12/20/2023 Medical Decision Making: Problems: Moderate: 2+ stable chronic illnesses Data: Unique source(s) for external note(s) reviewed: 1 Unique test result(s) reviewed: 2 Unique test(s) ordered: 1 Risk: Moderate: Moderate risk from testing/treatment, Drug management and Decision on minor surgery w/ risk factors Medical Decision Making Level: 4 - Moderate documented in this encounter [facility] 12-20-2023 Note HNO ID: [id number] Author: KRISTYN CHAO MD Service: ? Author Type: Physician Type: Progress Notes Filed: 12/20/2023 18:21 Note Text: PRIMARY CARE PHYSICIAN: Oscar Ledezma [address] [place] [address] Patient Care Team: Oscar Ledezma MD as PCP - General (Internal Medicine) Miesha Drake PA as Physician Hydroelectric Plant Electrician (Pulmonary and Critical Care Medicine) Franky Taylor MD as Specialty Meteorological Technician (Cardiology) Kristyn Chao MD as Specialty Meteorological Technician (Cardiology) CHIEF COMPLAINT: Follow up for arrhythmia HISTORY OF PRESENT ILLNESS: Ms. Beltran is a 63 year old female who presents today for a cardiovascular medicine follow-up visit. History copied from previous notes, edited as needed: Summary of previous notes: Ms. Beltran has cardiac history significant for mitral valve disease, with mitral valve prolapse and mitral regurgitation. She underwent valve surgery in 2003, she had mitral and tricuspid valve repairs. She states that she has experienced palpitations her entire life -- but have been more frequent and more bothersome recently. She states that she has been under increased stress more recently. She was previously on propranolol in the past. She states that she underwent surgery for her right shoulder in October 2022, she had the surgery due to a torn bicep and frozen shoulder. There was some issue with arrhythmia, she was told she had intermittent atrial fibrillation. She wore a adjuster piano action for 30 days. She also had a 48-hour ambulatory Holter monitor in May 2022. The cardiac monitoring revealed paroxysmal atrial fibrillation. She does not have high risk for stroke from atrial fibrillation, currently would not push hard for oral anticoagulation therapy at this point. I think a rate controlling medication could help alleviate some of her symptoms. She evidently did not tolerate propranolol in the past due to side effects, possibly depression. This might be a class effect that she might experience with any of the beta-blockers, but it is reasonable to consider trying metoprolol or atenolol. Another option would be a nondihydropyridine calcium channel felix such as diltiazem. I would not at this point advocate or recommend for advanced treatment strategies such as antiarrhythmic drug therapy or catheter ablation. The antiarrhythmic drug options would be somewhat limited due to the existing bundle branch block, particularly with the Class IC agents (flecainide, propafenone) that have more direct impact on AV conduction intervals. Interim History Dr. Chao 12/20/2023: Ms. Beltran presents for follow-up evaluation for paroxysmal atrial fibrillation. She states that she has been much better with the metoprolol medication. She states she has been doing well overall. Metoprolol helped a lot. This past Saturday she had symptoms suggestive of atrial fibrillation, lasted about 10 minutes, with racing heartbeats, palpitations. She has an Apple Watch, which indicated atrial fibrillation. Episodes have not been frequent, previous episode was about 6 or 7 weeks prior. She is under a lot of stress, her mother has not been well. She denies chest pain, shortness of breath, orthopnea, PND, syncope. I have confirmed and edited as necessary, the PFSH and ROS obtained by others. PAST MEDICAL HISTORY Diagnosis Date Arthritis At risk for stroke C. difficile diarrhea 04/28/2012 Chest pain COVID-19 08/24/2020 DDD (degenerative disc disease), lumbar 10/06/2018 Dr. Benjamin Luke, [facility]. Diseases of tricuspid valve Dry eyes 05/25/2020 Zofia Vasquez MD, [facility] Dry mouth 05/25/2020 History of anal fissures 2006 Pinch History of mitral valve repair History of transfusion History of tricuspid valve repair HLD (hyperlipidemia) Low back pain 06/24/2014 Lyme disease Migraine Mitral valve disorders(424.0) 2004 Myofascial pain 06/24/2014 Osteopenia, senile 10/06/2018 PAF (paroxysmal atrial fibrillation) (HCC) Palpitations 03/15/2023 PONV (postoperative nausea and vomiting) Reactive airway disease without complication 10/14/2015 Sjogren's disease (HCC) SOB (shortness of breath) PAST SURGICAL HISTORY Procedure Laterality Date CARDIAC VALVE SURGERY HX 02/03/2004 Mitral valve and Tricuspid valve repair; [facility] COLONOSCOPY 12/27/2021 repeat in 10 years FISSURECTOMY INCL SPHINCTEROTOMY WHEN PERFORMED 09/16/2005 Pinch LEFT HEART CATH,PERCUTANEOUS 12/13/2003 Cardiac cath, L heart PAST SURGICAL HISTORY OF 09/16/2010 glass removed from middle finger right hand - Dr. Weinstein [facility] TOTAL ABDOMINAL HYSTERECT W/WO RMVL TUBE OVARY 09/16/2001 Hysterectomy, YUSUF VAGINAL HYSTERECTOMY SOCIAL HISTORY Social History Tobacco Use Smoking status: Never Smokeless tobacco: Never Vaping Use Vaping Use: Never used Sub (more content not included)... [facility] 09-30-2023 Note HNO ID: [id number] Author: JOHN CALZADA APRN.SED SPECIAL EDUCATION TEACHER Service: ? Author Type: Nurse Practitioner Type: Progress Notes Filed: 09/30/2023 09:41 Note Text: CC: Patient presents with: bowel cramping: Relief after BM - then back pain HPI Luz Beltran is a 62 year old female who presents today for above. Patient reports episodes of bowel cramping followed by a BM with mushy stool and mucus, occurring twice this past month. Associated with nausea, sweating and lightheadedness. These episodes started about 4-5 years ago, experiencing a couple a times a year but never this close together. She denies any GI issues in between these episodes. Denies abdominal pain, nausea, vomiting, diarrhea, constipation, black/bloody stools, poor appetite, heartburn or reflux symptoms. No change in diet or eating habits. She has been under a lot more stress recently. She had a colonoscopy in 2021 that was normal other than internal hemorrhoids and diverticula. Review of Systems Constitutional: Negative for chills, diaphoresis, fatigue, fever and unexpected weight change. Hematological: Negative for adenopathy. Does not bruise/bleed easily. PAST MEDICAL HISTORY Diagnosis Date Arthritis At risk for stroke C. difficile diarrhea 04/28/2012 Chest pain COVID-19 08/24/2020 DDD (degenerative disc disease), lumbar 10/06/2018 Dr. Benjamin Luke, [facility]. Diseases of tricuspid valve Dry eyes 05/25/2020 Zofia Vasquez MD, [facility] Dry mouth 05/25/2020 History of anal fissures 2005 Connie History of mitral valve repair History of transfusion History of tricuspid valve repair HLD (hyperlipidemia) Low back pain 06/24/2014 Lyme disease Migraine Mitral valve disorders(424.0) 2003 Myofascial pain 06/24/2014 Osteopenia, senile 10/06/2018 PAF (paroxysmal atrial fibrillation) (HCC) Palpitations 03/15/2023 PONV (postoperative nausea and vomiting) Reactive airway disease without complication 10/14/2015 Sjogren's disease (HCC) SOB (shortness of breath) PAST SURGICAL HISTORY Procedure Laterality Date CARDIAC VALVE SURGERY HX 02/03/2004 Mitral valve and Tricuspid valve repair; [facility] COLONOSCOPY 12/27/2021 repeat in 10 years FISSURECTOMY INCL SPHINCTEROTOMY WHEN PERFORMED 09/16/2005 Connie LEFT HEART CATH,PERCUTANEOUS 12/13/2003 Cardiac cath, L heart PAST SURGICAL HISTORY OF 09/16/2010 glass removed from middle finger right hand - Dr. Weinstein [facility] TOTAL ABDOMINAL HYSTERECT W/WO RMVL TUBE OVARY 09/16/2001 Hysterectomy, YUSUF VAGINAL HYSTERECTOMY ALLERGIES Inderal [Other] MEDICATIONS metoprolol succinate ER (TOPROL XL) 25 mg 24 hr tablet Take 25 mg by mouth once daily. aspirin 325 mg tablet Take 325 mg by mouth once daily. cycloSPORINE (RESTASIS) 0.05 % ophthalmic emulsion 1 Drop twice daily. atorvastatin (LIPITOR) 20 mg tablet Take 20 mg by mouth daily at bedtime. cholecalciferol (VITAMIN D3) 5,000 unit tab Take 5,000 Units by mouth once daily. Weston-3 Fatty Acids 300 mg cap Take by mouth. FAMILY HISTORY Problem Relation Age of Onset COPD Mother other (diverticulitis) Mother other (sciatica) Mother Heart Attack Father Dementia Father Heart disease Father CABG No Known Problems Brother Heart disease Maternal Grandmother CABG Diabetes Maternal Grandmother Social History Tobacco Use Smoking status: Never Smokeless tobacco: Never Vaping Use Vaping Use: Never used Substance Use Topics Alcohol use: No Drug use: No BP 168/78 Pulse 76 Resp 14 Wt 52.6 kg (116 lb) SpO2 99% BMI 19.91 kg/m? Physical Exam Vitals reviewed. Constitutional: Appearance: Normal appearance. Cardiovascular: Rate and Rhythm: Normal rate. Rhythm irregular. Heart sounds: Normal heart sounds. No murmur heard. Pulmonary: Effort: Pulmonary effort is normal. Breath sounds: Normal breath sounds and air entry. Abdominal: General: Abdomen is flat. Bowel sounds are normal. Palpations: Abdomen is soft. There is no hepatomegaly, splenomegaly or mass. Tenderness: There is no abdominal tenderness. Negative signs include Zhang's sign. Neurological: Mental Status: She is alert. DATA REVIEWED: most recent labs and colonoscopy ASSESSMENT/PLAN: 1. Abdominal cramping - ICD9: 789.00, ICD10: R10.9 Etiology unclear. Normal labs a few months ago and colonoscopy in 2021. Suspect GI symptoms related to increase in stress. No alarm symptoms or exam findings. Continue to monitor. Will refer to GI if symptoms reoccur Prescription instructions reviewed with patient as applicable. Potential red flag symptoms discussed with the patient. Reviewed appropriate action plan to take if red flag symptoms occur. Patient agreeable to treatment plan. John Calzada APRN.[facility] 03-15-2023 History of Present illness Narrative Images from the original note were not included. PRIMARY CARE PHYSICIAN: Oscar Ledezma [address] [place] [address] REFERRING PHYSICIAN: Miesha Drake, CEDRICK ([facility]) [address] [place] [id number] Patient Care Team: Oscar Ledezma MD as PCP - General (Internal Medicine) Miesha Drake (Pa) as Physician Hydroelectric Plant Electrician (Pulmonary and Critical Care Medicine) Franky Taylor MD as Specialty Meteorological Technician (Cardiology) CHIEF COMPLAINT: Evaluation of arrhythmia HISTORY OF PRESENT ILLNESS: Ms. Beltran is a 62 year old female who presents today for evaluation of arrhythmia, referred by [facility]. Ms. Beltran has cardiac history significant for mitral valve disease, with mitral valve prolapse and mitral regurgitation. She underwent valve surgery in 2003, she had mitral and tricuspid valve repairs. She states that she has experienced palpitations her entire life -- but have been more frequent and more bothersome recently. She states that she has been under increased stress more recently. She was previously on propranolol in the past. She states that she underwent surgery for her right shoulder in October 2022, she had the surgery due to a torn bicep and frozen shoulder. There was some issue with arrhythmia, she was told she had intermittent atrial fibrillation. She wore a adjuster piano action for 30 days. She also had a 48-hour ambulatory Holter monitor in May 2022. The cardiac monitoring revealed paroxysmal atrial fibrillation. She is referred for evaluation. I have confirmed and edited as necessary, the PFSH and ROS obtained by others. PAST MEDICAL HISTORY Diagnosis Date Arthritis At risk for stroke C. difficile diarrhea 04/28/2012 Chest pain COVID-19 08/24/2020 DDD (degenerative disc disease), lumbar 10/06/2018 Dr. Benjamin Luke, [facility]. 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 Weinstein [facility] TOTAL ABDOMINAL HYSTERECT W/WO RMVL TUBE OVARY 09/16/2001 Hysterectomy, YUSUF VAGINAL HYSTERECTOMY SOCIAL HISTORY Social History Tobacco Use Smoking status: Never Smokeless tobacco: Never Vaping Use Vaping Use: Never used Substance Use Topics Alcohol use: No Drug use: No FAMILY HISTORY Problem Relation Age of Onset COPD Mother other (diverticulitis) Mother other (sciatica) Mother Heart Attack Father Dementia Father Heart disease Father CABG No Known Problems Brother Heart disease Maternal Grandmother CABG Diabetes Maternal Grandmother ALLERGIES: ALLERGIES Allergen Reactions Inderal [Other] Mental Status Change Depression MEDICATIONS: aspirin 325 mg tablet Take 325 mg by mouth once daily. cycloSPORINE (RESTASIS) 0.05 % ophthalmic emulsion 1 Drop twice daily. atorvastatin (LIPITOR) 20 mg tablet Take 20 mg by mouth daily at bedtime. cholecalciferol (VITAMIN D3) 5,000 unit tab Take 5,000 Units by mouth once daily. Weston-3 Fatty Acids 300 mg cap Take by mouth. REVIEW OF SYSTEMS: Review of Systems Constitutional: Negative for chills, fever, malaise/fatigue and weight loss. Respiratory: Negative for cough, hemoptysis, sputum production, shortness of breath and wheezing. Cardiovascular: Positive for palpitations (occasional, brief; worse recently she attributes to increased stress). Negative for chest pain, orthopnea, claudication, leg swelling and PND. Gastrointestinal: Negative for abdominal pain, blood in stool, melena, nausea and vomiting. Genitourinary: Negative for hematuria. Musculoskeletal: Negative for falls. Skin: Negative for rash. Neurological: Negative for dizziness, focal weakness, seizures and loss of consciousness. PHYSICAL EXAMINATION: BP 160/60 Pulse 78 Ht 5' 4 (1.63m) Wt 115 lb (52.2kg) SpO2 98% BMI 19.73 kg/(m^2). Physical Exam Vitals reviewed. Constitutional: General: She is not in acute distress. Appearance: Normal appearance. HENT: Head: Normocephalic and atraumatic. Cardiovascular: Rate and Rhythm: Normal rate. Rhythm irregular. Occasional Extrasystoles are present. Heart sounds: Normal heart sounds, S1 normal and S2 normal. No murmur heard. No friction rub. Pulmonary: Effort: Pulmonary effort is normal. No respiratory distress. Breath sounds: Normal breath sounds. No wheezing, rhonchi or rales. Musculoskeletal: Cervical back: Neck supple. Right lower leg: No edema. Left lower leg: No edema. Skin: General: Skin is warm and dry. Neurological: General: No focal deficit present. Mental Status: She is alert and oriented to person, place, and time. Psychiatric: Mood and Affect: Mood normal. Behavior: Behavior normal. Thought Content: Thought content normal. CARDIOVASCULAR MEDICINE TESTING: Electrocardiogram: Sinus rhythm 66 bpm; PACs; normal ME interval 138 ms; right bundle branch block (QRS 124 ms); QTc 454 ms I have personally reviewed the Electrocardiogram. Cardiac monitoring: reviewed, including 05/2022 48 hour Holter monitoring and more recent cardiac monitoring 12/2022, the latter revealed paroxysmal atrial fibrillation. Echocardiogram 05/2022 Jaz: ASSESSMENT/PLAN: 1. PAF (paroxysmal atrial fibrillation) (HCC) - ICD9: 427.31, ICD10: I48.0 (primary diagnosis) Symptomatic - ECG B/O W INTERP (MED OFFICE) 2. Palpitations - ICD9: 785.1, ICD10: R00.2 Intermittent; probably from the paroxysmal atrial fibrillation 3. At risk for stroke - ICD9: V15.89, ICD10: Z91.89 [id number] = 0 (female gender not counted in absence of other risk factors); when she turns 63 she will have age and female gender as risk factors, but this particular combination of risk factors has more recently been considered intermediate risk, much like a male patient of the same age. So at the present time it seems oral anticoagulation therapy for stroke prevention is not strongly recommended 4. Valvular heart disease - ICD9: 424.90, ICD10: I38 5. History of mitral valve repair - ICD9: V15.1, ICD10: Z98.890 6. History of tricuspid valve repair - ICD9: V15.1, ICD10: Z98.890 Stable, followed by [facility] IMPRESSION: Ms. Beltran has paroxysmal atrial fibrillation documented by cardiac monitoring. Discussed with her the cornerstones of management of atrial fibrillation, including stroke prevention, ventricular rate control, atrial rhythm control and also patient modifiable factors. She did identify stress as a contributing factor for her symptoms, so stress management could be important to help alleviate her symptoms. As noted above, she does not have high risk for stroke from atrial fibrillation, currently would not push hard for oral anticoagulation therapy at this point. I think a rate controlling medication could help alleviate some of her symptoms. She evidently did not tolerate propranolol in the past due to side effects, possibly depression. This might be a class effect that she might experience with any of the beta-blockers, but it is reasonable to consider trying metoprolol or atenolol. Another option would be a nondihydropyridine calcium channel felix such as diltiazem. I would not at this point advocate or recommend for advanced treatment strategies such as antiarrhythmic drug therapy or catheter ablation. The antiarrhythmic drug options would be somewhat limited due to the existing bundle branch block, particularly with the Class IC agents (flecainide, propafenone) that have more direct impact on AV conduction intervals. I had a detailed discussion with Ms. Beltran regarding my evaluation and recommendations. After our discussion, Ms. Beltran expressed her understanding and I answered all her questions to her apparent satisfaction. PLAN AND RECOMMENDATIONS: See recommendations above. Return in about 6 months (around 09/14/2023) for Dr. Chao [place] office. Kristyn Chao MD 03/15/2023 Medical Decision Making: Problems: Moderate: New problem with uncertain prognosis Data: Unique source(s) for external note(s) reviewed: 3+ Unique test result(s) reviewed: 3+ Unique test(s) ordered: 1 Risk: Moderate: Moderate risk from testing/treatment, Drug management and Decision on minor surgery w/ risk factors Medical Decision Making Level: 4 - Moderate documented in this encounter [facility] 02-14-2023 History of Past i llness Narrative Problem Noted Date Diagnosed Date Resolved Date Acute sinusitis 02/14/2023 03/13/2023 Claustrophobia 11/07/2016 06/25/2017 Low back pain 06/24/2014 06/25/2017 Myofascial pain 06/24/2014 06/25/2017 Buttock pain 06/24/2014 06/25/2017 Disorders of sacrum 01/13/2014 06/25/20 17 C. difficile diarrhea 04/28/20122012 Possible Lyme Disease 04/25/20122015 Overview: Not confirmed, being treated w/antibiotic treatment since June of 2011. She stopped treatment for c diff. Resolved symptoms for Period. Last Assessment & Plan: Not confirmed, being treated w/antibiotic treatment since June of 2011. Different atb every month. She had started with abd cramping, diarrhea around March 17 week of this year. End March at appt with Dr. Veloz in [place] took her off Supprax, and started on Valtrex 500mg bid due to continued fatigue for 2 weeks. She notes fatigue has improved after 2 weeks, has continued with Valtrex. Taking 24 acidophylus tabs per day. Continues with daily stools liquid, although no stools over the past 2 days. Feels more constipated although stools not formed/straining, with lower back pain. Associated sx include dry mouth. She has not been checked for stool diff. Migraine 06/03/1997 08/11/2013 documented as of this encounter (statuses as of 03/25/2023) [facility] History of Past illness Narrative* Problem Noted Date Diagnosed Date Resolved Date Acute sinusitis 02/14/2023 03/13/2023 Claustrophobia 11/07/2016 06/25/2017 Low back pain 06/24/2014 06/25/2017 Myofascial pain 06/24/2014 06/25/2017 Buttock pain 06/24/2014 06/25/2017 Disorders of sacrum 01/13/2014 06/25/20 17 C. difficile diarrhea 04/28/20122012 Possible Lyme Disease 04/25/20122015 Overview: Not confirmed, being treated w/antibiotic treatment since June of 2011. She stopped treatment for c diff. Resolved symptoms for Period. Last Assessment & Plan: Not confirmed, being treated w/antibiotic treatment since June of 2011. Different atb every month. She had started with abd cramping, diarrhea around March 17 week of this year. End March at appt with Dr. Veloz in [place] took her off Supprax, and started on Valtrex 500mg bid due to continued fatigue for 2 weeks. She notes fatigue has improved after 2 weeks, has continued with Valtrex. Taking 24 acidophylus tabs per day. Continues with daily stools liquid, although no stools over the past 2 days. Feels more constipated although stools not formed/straining, with lower back pain. Associated sx include dry mouth. She has not been checked for stool diff. Migraine 06/03/1997 08/11/2013 documented as of this encounter (statuses as of 12/20/2023) [facility]04-05-2022 History of Present illness Narrative* RT Shaun(R) - 12/19/2021 8:30 AM EDT Radiology Service Progress Note PATIENT NAME: Luz Beltran DATE OF SERVICE: December 19, 2021 TIME: 8:26 AM PATIENT IDENTITY VERIFICATION COMPLETED USING TWO (2) IDENTIFIERS: Name and Date of confirmedby patient verbally. FALL SCREENING: Has the patient had 2 falls in the last year or 1 fall with injury or currently using an Ambulatory Assistive Device (Walker, Cane, Wheelchair, Crutches, etc.)? No PATIENT GENDER DATA: Female. status: : No status: NO. PATIENT RELEVANT IMPLANT DATA REVIEWED: Not Applicable RADIOLOGY DEPARTMENT: Bone Density PERIPHERAL IV DATA: Not applicable SIGNED BY: RT Shaun(R) December 19, 2021 8:26 AM [facility] History of Present illness Narrative* Loren Anderson Tech (Tech) - 09/06/2020 10:50 AM EST Radiology Service Progress Note PATIENT NAME: Luz Beltran DATE OF SERVICE: September 06, 2020 TIME: 10:47 AM PATIENT IDENTITY VERIFICATION COMPLETED USING TWO (2) IDENTIFIERS: Name and Date of confirmedby patient verbally. FALL SCREENING: Has the patient had 2 falls in the last year or 1 fall with injury or currently using an Ambulatory Assistive Device (Walker, Cane, Wheelchair, Crutches, etc.)? No PATIENT GENDER DATA: Female. status: : No status: NO. PATIENT RELEVANT IMPLANT DATA REVIEWED: Not Applicable RADIOLOGY DEPARTMENT: General X-ray: Exam(s) Completed: Chest X-Ray PERIPHERAL IV DATA: Not applicable SIGNED BY: Yesi Chamorro September 06, 2020 10:47 AM [facility] History of Past illness Narrative* Problem Noted Date Resolved Date Claustrophobia 11/07/2016 06/25/2017 Low back pain 06/24/2014 06/25/2017 Myofascial pain 06/24/2014 06/25/2017 Buttock pain 06/24/2014 06/25/2017 Disorders of sacrum 01/13/2014 06/25/2017 C. difficile diarrhea 04/28/2012 08/11/2013 Possible Lyme Disease 04/25/2012 09/22/2015 Overview: Not confirmed, being treated w/antibiotic treatment since June of 2011. She stopped treatment for c diff. Resolved symptoms for Period. Last Assessment & Plan: Not confirmed, being treated w/antibiotic treatment since June of 2011. Different atb every month. She had started with abd cramping, diarrhea around March 17 week of this year. End March at appt with Dr. Veloz in [place] took her off Supprax, and started on Valtrex 500mg bid due to continued fatigue for 2 weeks. She notes fatigue has improved after 2 weeks, has continued with Valtrex. Taking 24 acidophylus tabs per day. Continues with daily stools liquid, although no stools over the past 2 days. Feels more constipated although stools not formed/straining, with lower back pain. Associated sx include dry mouth. She has not been checked for stool diff. Migraine 06/03/1997 08/11/2013 documented as of this encounter (statuses as of 12/20/2021) [facility] History of Past illness Narrative* Problem Noted Date Resolved Date Claustrophobia 11/07/2016 06/25/2017 Low back pain 06/24/2014 06/25/2017 Myofascial pain 06/24/2014 06/25/2017 Buttock pain 06/24/2014 06/25/2017 Disorders of sacrum 01/13/2014 06/25/2017 C. difficile diarrhea 04/28/2012 08/11/2013 Possible Lyme Disease 04/25/2012 09/22/2015 Overview: Not confirmed, being treated w/antibiotic treatment since June of 2011. She stopped treatment for c diff. Resolved symptoms for Period. Last Assessment & Plan: Not confirmed, being treated w/antibiotic treatment since June of 2011. Different atb every month. She had started with abd cramping, diarrhea around March 17 week of this year. End March at appt with Dr. Veloz in [place] took her off Supprax, and started on Valtrex 500mg bid due to continued fatigue for 2 weeks. She notes fatigue has improved after 2 weeks, has continued with Valtrex. Taking 24 acidophylus tabs per day. Continues with daily stools liquid, although no stools over the past 2 days. Feels more constipated although stools not formed/straining, with lower back pain. Associated sx include dry mouth. She has not been checked for stool diff. Migraine 06/03/1997 08/11/2013 documented as of this encounter (statuses as of 03/19/2022) [facility] note* Diagnosis Encounter for screening for osteoporosis Special screening for osteoporosis Asymptomatic postmenopausal status documented in this encounter [facility] note* Diagnosis Encounter for screening mammogram for breast cancer documented in this encounter [facility] note* Diagnosis PAF (paroxysmal atrial fibrillation) (HCC)- Primary Atrial fibrillation Palpitations At risk for stroke Other specified personal history presenting hazards to health Valvular heart disease Endocarditis, valve unspecified, unspecified cause History of mitral valve repair Personal history of surgery to heart and great vessels, presenting hazards to health History of tricuspid valve repair Personal history of surgery to heart and great vessels, presenting hazards to health [facility] Diagnosis PAF (paroxysmal atrial fibrillation) (HCC)- Primary Atrial fibrillation Palpitations Valvular heart disease Endocarditis, valve unspecified, unspecified cause History of mitral valve repair Personal history of surgery to heart and great vessels, presenting hazards to health History of tricuspid valve repair Personal history of surgery to heart and great vessels, presenting hazards to health At risk for stroke Other specified personal history presenting hazards to health documented in this encounter [facility] note* Diagnosis Encounter for screening mammogram for breast cancer [facility] Diagnosis Acute cough- Primary Acute cough [facility] Diagnosis Acute cough [facility] Diagnosis Chest tightness Other chest pain documented in this encounter [facility] for referral (narrative)* Diagnostic Procedure Only (Routine) - Pending Review Specialty Diagnoses / Procedures Referred By Contac t Referred To Contact [facility] Diagnoses Encounter for screening mammogram for breast cancer Procedures MARJAN SCREENING SCREENING MAMMOGRAPHY BI 2-VIEW BREAST INC Oscar Pelaez MD [address] [place] [address] [facility] [address] [place] [address] Referral ID Status Reason Start Date Expiration Date Visits Requested Visits Authorized [id number] Pending Review Auto-Generat ed Referral 03/14/2022 04/13/2023 1 1 [facility] Diagnostic Procedure Only (Routine) - Pending Review Specialty Diagnoses / Procedures Referred By Charan mina Referred To Contact [facility] Diagnoses Encounter for screening mammogram for breast cancer Procedures MARJAN SCREENING SCREENING MAMMOGRAPHY BI 2-VIEW BREAST INC Oscar Pelaez MD [address] [place] [address] [facility] [address] [place] [address] Referral ID Status Reason Start Date Expiration Date Visits Requested Visits Authorized [id number] Pending Review Auto-Generat ed Referral 01/29/2024 02/27/2025 1 1 [facility] Instructions Instruction Description Start Date CompletedPlease follow-up [facility] Primary Care Physician or Machine Printer for treatment or adjustment of medication regarding elevated blood pressure. Advance Directives Documents on File Type Date Recorded Patient Hand Binder Stripper Expl anation Advance Directive(s) 12/13/2021 9:38 AM Documents on File Type Date Recorded Patient Hand Binder Stripper Expl anation Advance Directive(s) 12/27/2021 8:15 AM Advance Directive(s) 12/13/2021 9:38 AM Assessments There may be information available, but it has not been provided by the sender. Review of System There may be information available, but it has not been provided by the sender. Family History There may be information available, but it has not been provided by the sender.No Family History Records FoundNo Family History Records FoundNo Family History Records Found Summary Purpose Additional Source Comments Source Comments (unrecognize d section and content) In the event this informatio n is protected by the Federal Confidentiality of Alcohol and Drug Abuse Patient Records regulations: The Federal rules restrict any use of the information to criminally investigate or prosecute any alcohol or drug abuse patient.[facility] event this information is protected by the Federal Confidentiality of Alcohol and Drug Abuse Patient Records regulations: The Federal rules restrict any use of the information to criminally investigate or prosecute any alcohol or drug abuse patient.[facility] the event this information is protected by the Federal Confidentiality of Alcohol and Drug Abuse Patient Records regulations: The Federal rules restrict any use of the information to criminally investigate or prosecute any alcohol or drug abuse patient.[facility] the event this information is protected by the Federal Confidentiality of Alcohol and Drug Abuse Patient Records regulations: The Federal rules restrict any use of the information to criminally investigate or prosecute any alcohol or drug abuse patient.[facility] the event this information is protected by the Federal Confidentiality of Alcohol and Drug Abuse Patient Records regulations: The Federal rules restrict any use of the information to criminally investigate or prosecute any alcohol or drug abuse patient.[facility] the event this information is protected by the Federal Confidentiality of Alcohol and Drug Abuse Patient Records regulations: The Federal rules restrict any use of the information to criminally investigate or prosecute any alcohol or drug abuse patient.[facility] the event this information is protected by the Federal Confidentiality of Alcohol and Drug Abuse Patient Records regulations: The Federal rules restrict any use of the information to criminally investigate or prosecute any alcohol or drug abuse patient.[facility] the event this information is protected by the Federal Confidentiality of Alcohol and Drug Abuse Patient Records regulations: The Federal rules restrict any use of the information to criminally investigate or prosecute any alcohol or drug abuse patient.[facility] the event this information is protected by the Federal Confidentiality of Alcohol and Drug Abuse Patient Records regulations: The Federal rules restrict any use of the information to criminally investigate or prosecute any alcohol or drug abuse patient.[facility] Care Teams (unrecognized sec tion and content) Junior Systems Administrator Relationship Specialty Start Date End Date Oscar Ledezma MD [address] [place], [place] [id number] PCP - General Internal Medicine 05/22/16 Junior Systems Administrator Relationship Specialty Start Date End Date Oscar Ledezma MD [address] [place], [place] [id number] PCP - General Internal Medicine 05/22/16 Junior Systems Administrator Relationship Specialty Start Date End Date Oscar Ledezma MD [address] [place], [place] [id number] PCP - General Internal Medicine 05/22/16 Miesha Drake (Power) [facility] [place] [id number] Physician Hydroelectric Plant Electrician Pulmonary and Critical Care Medicine 03/13/23 Franky Taylor MD [address] [place] [address] Specialty Meteorological Technician Cardiology 03/13/23 Junior Systems Administrator Relationship Specialty Start Date End Date Oscar Ledezma MD [address] [place] [address] PCP - General Internal Medicine 05/22/16 Miesha Drake PA [address] [place] [address] Physician Hydroelectric Plant Electrician Pulmonary and Critical Care Medicine 03/13/23 Franky Taylor MD [address] [place] [address] Specialty Meteorological Technician Cardiology 12/17/23 Kristyn Chao MD [address] [place] [phone] (Fax) Specialty Meteorological Technician Cardiology 12/17/23 Junior Systems Administrator Relationship Specialty Start Date End Date Oscar Ledezma MD [address] [place] [address] PCP - General Internal Medicine 05/22/16 Miesha Monte, PA-C [address] [place] [address] Physician Hydroelectric Plant Electrician Pulmonary and Critical Care Medicine 03/13/23 Franky Taylor MD [address] [place] [address] Specialty Meteorological Technician Cardiology 12/17/23 Kristyn Chao MD [address] [place] [phone] (Fax) Specialty Meteorological Technician Cardiology 12/17/23 Junior Systems Administrator Relationship Specialty Start Date End Date Oscar Ledezma MD [address] [facility] [place] [address] PCP - General Internal Medicine 05/22/16 Miesha Monte, POWER-C [address] [place] [address] Physician Hydroelectric Plant Electrician Pulmonary and Critical Care Medicine 03/13/23 Franky Taylor MD [address] [place] [address] Specialty Meteorological Technician Cardiology 12/17/23 Kristyn Chao MD [address] [place] [address] Specialty Meteorological Technician Cardiology 12/17/23 Junior Systems Administrator Relationship Specialty Start Date End Date Oscar Ledezma MD [address] [facility] [place] [address] PCP - General Internal Medicine 05/22/16 Miesha Monte, POWER-C [address] [place] [address] Physician Hydroelectric Plant Electrician Pulmonary and Critical Care Medicine 03/13/23 Franky Taylor MD [address] [place] [address] Specialty Meteorological Technician Cardiology 12/17/23 Kristyn Chao MD [address] [place] [address] Specialty Meteorological Technician Cardiology 12/17/23 Junior Systems Administrator Relationship Specialty Start Date End Date Oscar Ledezma MD [address] [place] [address] PCP - General Internal Medicine 05/22/16 Junior Systems Administrator Relationship Specialty Start Date End Date Oscar Ledezma MD [address] [place] [address] PCP - General Internal Medicine 05/22/16 Miesha Monte PA-C [address] [place], [place] [address] Physician Hydroelectric Plant Electrician Pulmonary and Critical Care Medicine 03/13/23 Franky Taylor MD [address] [place], [place] [address] Specialty Meteorological Technician Cardiology 12/17/23 Kristyn Chao MD [address] [place] [phone] Specialty Meteorological Technician Cardiology 12/17/23 INFORMATION SOURCE (unrecogn ized section and content) DATE CREATED AUTHOR 01/30/2023 [employer] [facility] DATE CREATED AUTHOR AUTHOR'S ORGANIZ ATION 06/07/2024 [facility] DATE CREATED AUTHOR AUTHOR'S ORGANIZ ATION 07/01/2024 [facility] Reason for Visit (unrecogniz ed section and content) Reason Comments New Patient Reason Comments Cardiology Follow Up PAF Reason Comments Cough X3 weeks Reason Onset Date Comments Follow Up 06/29/2024 FOR RECORDS PERTAINING TO PATIENTS WHO ARE OR HAVE BEEN ENROLLED IN A CHEMICAL DEPENDENCY/SUBSTANCEABUSE PROGRAM, SOME INFORMATION MAY BE OMITTED. This clinical summary was aggregated from multiple sources. Caution should be exercised in using it in the provision of clinical care. This summary normalizes information from multiple sources, and as a consequence, information in this document may materially change the coding, format and clinical context of patient data. In addition, data may be omitted in some cases. CLINICAL DECISIONS SHOULD BE BASED ON THE PRIMARY CLINICAL RECORDS. [employer] provides no warranty or guarantee of the accuracy or completeness of information in this document.
[2024-07-03 08:09] LABS: International Normalized Ratio 4.1; Prothrombin Time (Protime)PT. 39.2 SECONDS (11.7-14.9)
== END | disposition home or self-care (01) ==
LOC: LAB 07:26
PROVIDERS: PCP Internal Medicine; Referring Provider Internal Medicine Cardiovascular Disease; Visit Provider Internal Medicine Cardiovascular Disease
DX: I48.0 Paroxysmal atrial fibrillation (principal); Z79.01 Long term (current) use of anticoagulants
CPT/HCPCS: 36415; 85610

== ENCOUNTER 2024-07-10 07:15 | Outpatient (RCR) | payer OTHER, SELFPAY ==
[2024-07-10 08:54] LABS: International Normalized Ratio 2.7; Prothrombin Time (Protime)PT. 28.8 SECONDS (11.7-14.9)
== END 2024-07-10 18:00 | disposition home or self-care (01) ==
LOC: LAB 07:15
PROVIDERS: PCP Internal Medicine; Referring Provider Internal Medicine Cardiovascular Disease; Visit Provider Internal Medicine Cardiovascular Disease
DX: Z79.01 Long term (current) use of anticoagulants (principal); I48.0 Paroxysmal atrial fibrillation
CPT/HCPCS: 36415; 85610

== ENCOUNTER → 2024-07-13 | Outpatient (CLI) | payer OTHER, SELFPAY ==
--- NOTE | 2024-07-13 14:48 | ECHOD_ITS ---
Reason For Study: PAFIB Procedure This was a 2D Doppler, Color Flow transthoracic echocardiogram. Exam performed in department. Left Ventricle Normal LV size. Left ventricular systolic function is normal. The left ventricular ejection fraction is 70 %. No regional wall motion abnormalities noted. Right Ventricle Normal RV size. Normal systolic function. Atria Normal left atrium. Normal right atrium. Mitral Valve Mild (1+) eccentric mitral valve insufficiency. Status post mitral valve repair with annuloplasty ring. Tricuspid Valve Mild (1+) tricuspid valve insufficiency. An annuloplasty ring is noted in the tricuspid position. Aortic Valve Trisinus/trileaflet aortic valve. Pulmonic Valve Normal pulmonic valve. Great Vessels Normal aortic root. The pulmonary artery is normal size. Inferior vena cava collapse with sniff. Pericardium/Pleural No pericardial effusion. MMode/2D Measurements & Calculations LVIDd: 4.4 cm IVSd: 0.58 cm LVOT diam: 2.0 cm LVIDs: 3.4 cm LVPWd: 0.67 cm LVOT area: 3.0 cm2 FS: 24.0 % LAV(MOD-bp): 38.8 ml LVAd ap4: 18.2 cm2 SV(MOD-sp4): 33.5 ml LAV(MOD-bp) Indexed: 25.1 ml/m2 LVLd ap4: 6.0 cm SI(MOD-sp4): 21.7 ml/m2 LAV(MOD-sp2): 30.5 ml EDV(MOD-sp4): 46.5 ml LAV(MOD-sp4): 45.3 ml EDV(sp4-el): 47.4 ml LVAs ap4: 8.7 cm2 LVLs ap4: 4.9 cm ESV(MOD-sp4): 13.0 ml ESV(sp4-el): 13.1 ml EF(MOD-sp4): 72.0 % EF(sp4-el): 72.4 % SV(sp4-el): 34.4 ml LA A4 area: 17.2 cm2 RA A4 area: 10.6 cm2 TAPSE: 2.0 cm Time Measurements MV dec time: 0.51 sec Doppler Measurements & Calculations MV E max iftikhar: 138.3 cm/sec Lat Peak E' Iftikhar: 7.9 cm/sec Med Peak E' Iftikhar: 3.8 cm/sec MV A max iftikhar: 104.0 cm/sec E/E' lat: 17.4 E/E' med: 36.2 MV E/A: 1.3 MV V2 max: 200.2 cm/sec MV dec slope: 275.5 cm/sec2 Ao V2 max: 105.0 cm/sec MV max P.1 mmHg Ao max P.4 mmHg MV V2 mean: 105.1 cm/sec Ao V2 mean: 78.0 cm/sec MV mean P.4 mmHg Ao mean P.7 mmHg MV V2 VTI: 62.7 cm Ao V2 VTI: 28.5 cm MVA(VTI): 1.2 cm2 AV (velocity ratio): 0.89 ANA(I,D): 2.7 cm2 ANA(V,D): 3.1 cm2 LV V1 max: 107.4 cm/sec SV(LVOT): 76.5 ml PA V2 max: 90.4 cm/sec LV V1 max P.6 mmHg PA V2 mean: 65.6 cm/sec LV V1 mean P.3 mmHg LV V1 mean: 71.8 cm/sec LV V1 VTI: 25.3 cm ECHO/Echo Complete Interpretation Summary Status post mitral valve repair with annuloplasty ring. Normal LV size. Left ventricular systolic function is normal. The left ventricular ejection fraction is 70 %. An annuloplasty ring is noted in the tricuspid position. Ordering Physician: Jonathan Cash Referring Physician: Jonathan Cash Performed By: Ashanti Zambrano RCS
== END | disposition home or self-care (01) ==
LOC: CVS 14:48
PROVIDERS: PCP Internal Medicine; Referring Provider Internal Medicine Cardiovascular Disease; Visit Provider Internal Medicine Cardiovascular Disease
DX: I48.0 Paroxysmal atrial fibrillation (principal)
CPT/HCPCS: 93306

== ENCOUNTER 2024-08-07 07:29 | Outpatient (RCR) | payer OTHER, SELFPAY ==
[2024-07-24 08:35] LABS: International Normalized Ratio 2.9; Prothrombin Time (Protime)PT. 30.2 SECONDS (11.7-14.9)
[2024-08-07 07:54] LABS: International Normalized Ratio 2.1; Prothrombin Time (Protime)PT. 23.8 SECONDS (11.7-14.9)
== END 2024-08-15 18:00 | disposition home or self-care (01) ==
LOC: LAB 07:29
PROVIDERS: PCP Internal Medicine; Referring Provider Internal Medicine Cardiovascular Disease; Visit Provider Internal Medicine Cardiovascular Disease
DX: I48.0 Paroxysmal atrial fibrillation (principal); Z79.01 Long term (current) use of anticoagulants
CPT/HCPCS: 36415; 85610

== ENCOUNTER 2024-08-28 07:28 | Outpatient (RCR) | payer OTHER, SELFPAY ==
[2024-08-28 08:05] LABS: International Normalized Ratio 2.8; Prothrombin Time (Protime)PT. 29.1 SECONDS (11.7-14.9)
== END 2024-08-28 18:00 | disposition home or self-care (01) ==
LOC: LAB 07:28
PROVIDERS: PCP Internal Medicine; Referring Provider Internal Medicine Cardiovascular Disease; Visit Provider Internal Medicine Cardiovascular Disease
DX: Z79.01 Long term (current) use of anticoagulants (principal); I48.0 Paroxysmal atrial fibrillation

== ENCOUNTER 2024-09-25 07:28 | Outpatient (RCR) | payer OTHER, SELFPAY ==
[2024-09-25 08:24] LABS: International Normalized Ratio 2.3; Prothrombin Time (Protime)PT. 26.1 SECONDS (11.7-14.9)
== END 2024-09-25 18:00 | disposition home or self-care (01) ==
LOC: LAB 07:28
PROVIDERS: PCP Internal Medicine; Referring Provider Internal Medicine Cardiovascular Disease; Visit Provider Internal Medicine Cardiovascular Disease
DX: I48.0 Paroxysmal atrial fibrillation (principal); Z79.01 Long term (current) use of anticoagulants
CPT/HCPCS: 36415; 85610

== ENCOUNTER 2024-10-30 07:23 | Outpatient (RCR) | payer OTHER, SELFPAY ==
[2024-10-30 09:15] LABS: International Normalized Ratio 2.2; Prothrombin Time (Protime)PT. 24.6 SECONDS (11.7-14.9)
== END 2024-11-13 18:00 | disposition home or self-care (01) ==
LOC: LAB 07:23
PROVIDERS: PCP Internal Medicine; Referring Provider Internal Medicine Cardiovascular Disease; Visit Provider Internal Medicine Cardiovascular Disease
DX: I48.0 Paroxysmal atrial fibrillation (principal); Z79.01 Long term (current) use of anticoagulants
CPT/HCPCS: 36415; 85610

== ENCOUNTER 2024-12-04 07:13 | Outpatient (RCR) | payer OTHER, SELFPAY ==
[2024-11-20 08:26] LABS: International Normalized Ratio 2.8; Prothrombin Time (Protime)PT. 30.2 SECONDS (11.7-14.9)
[2024-11-27 08:47] LABS: International Normalized Ratio 2.6
[2024-12-04 08:51] LABS: International Normalized Ratio 2.2
== END 2024-12-04 18:00 | disposition home or self-care (01) ==
LOC: LAB 07:13
PROVIDERS: PCP Internal Medicine; Referring Provider Internal Medicine Cardiovascular Disease; Visit Provider Internal Medicine Cardiovascular Disease
DX: I48.0 Paroxysmal atrial fibrillation (principal); Z79.01 Long term (current) use of anticoagulants
CPT/HCPCS: 36415; 85610

== ENCOUNTER 2024-12-13 20:06 | Observation (INO) | payer OTHER, SELFPAY ==
[2024-12-13 20:07] VITALS: BP 144/65; PULSE 87; RESP 16; TEMP 37.1; O2SAT 94; BMI 20.7
--- NOTE | 2024-12-13 20:09 | EDS_ITS ---
HPI <Dr. Sreedhar Perez DO - Last Filed: 12/13/24 22:02> History of Present Illness Chief Complaint: Abd Pain <RACHEL Garza - Last Filed: 12/13/24 22:14> Narrative Narrative: Patient presenting today with right lower quadrant pain that started yesterday evening. She reports that the pain is intermittent and gradually worsening. She reports that she had a cardiac ablation performed for a history of atrial fibrillation. Previous abdominal surgeries include hysterectomy. She denies fevers, chills, nausea, vomiting, diarrhea, and stool changes. She denies history of kidney stones. She last had a bowel movement today and it was normal for her. PMH includes atrial fibrillation post ablation and HLD. PFSH <Dr. Sreedhar Perez DO - Last Filed: 12/13/24 22:02> PFSH Medical History PAF (paroxysmal atrial fibrillation) HLD (hyperlipidemia) COVID-19 Shortness of breath Chest pain, unspecified COVID-19 Heart disease SOB (shortness of breath) Sjogren's disease Rheumatic mitral valve prolapse Lyme disease Migraine Hyperlipidemia Rheumatic tricuspid insufficiency Home Medications ?Medication ?Instructions ?Recorded ?Last Taken ?Type cholecalciferol (vitamin D3) 125 5,000 unit PO QDAY Unknown History mcg (5,000 unit) capsule metoprolol succinate 25 mg 25 mg PO DAILY #90 tabs Unknown Rx tablet,extended release 24 hr warfarin 4 mg tablet 4 mg PO QDAY #30 tabs Unknown Rx atorvastatin 20 mg tablet 20 mg PO QDAY 06/26/24 Unkno wn History Allergy/AdvReac Type Severity Reaction Status Date / Time propranolol (From Inderal [place]) Allergy Mild depression Verified 12/13/24 20:07 Family History Grandmother Heart disease Diabetes Father Heart disease Surgical History H/O hysterectomy with oophorectomy History of mitral valve repair (~02/03/04) History of tricuspid valve repair (~2003) Social History Smoking Status: Never smoker alcohol intake: never ROS <RACHEL Garza - Last Filed: 12/13/24 22:14> ROS ED Constitutional Constitutional ED: Denies chills or fever(s) Cardiovascular Cardiovascular: Denies chest pain Respiratory/Chest Respiratory/Chest: Denies dyspnea Gastrointestinal Gastrointestinal: Reports abdominal pain; Denies constipation, diarrhea, melena, nausea or vomiting Genitourinary Genitourinary ED: Denies dysuria, hematuria or urinary urgency Musculoskeletal Musculoskeletal: Denies arthralgias or myalgias Integumentary Denies rash Neurologic Neurologic: Denies weakness EXAM <Dr. Sreedhar Perez, - Last Filed: 12/13/24 22:02> Physical Exam Const Vital Signs: 12/13/24 20:07 12/13/24 21:47 Temperature 98.7 F Temperature Source Oral Pulse Rate 87 68 Respiratory Rate 16 18 Blood Pressure 144/65 H 127/38 H Blood Pressure Mean 91 67 Pulse Ox 94 96 Oxygen Delivery Method Room Air Room Air <RACHEL Garza - Last Filed: 12/13/24 22:14> Physical Exam Const Vital Signs: 12/13/24 20:07 12/13/24 21:47 Temperature 98.7 F Temperature Source Oral Pulse Rate 87 68 Respiratory Rate 16 18 Blood Pressure 144/65 H 127/38 H Blood Pressure Mean 91 67 Pulse Ox 94 96 Oxygen Delivery Method Room Air Room Air Positive well nourished, well developed and no apparent distress General Appearance ED: well developed HEENT Reports normocephalic and head/scalp atraumatic Mouth ED: Yes moist mucous membranes normal Eyes PERRL and EOMs intact bilaterally Neck full ROM and supple Chest Wall inspection of chest normal Resp normal respiratory effort and clear to auscultation bilaterally Cardio regular rate and regular rhythm GI soft to palpation, non-distended and no masses GI Narrative: Right lower quadrant abdominal tenderness to McBurney's point, negative Rovsing sign. No rigidity or guarding Back/Spine normal ROM and normal to inspection Extremity normal to inspection and full ROM Neuro oriented x3, CN's II-XII intact bilaterally, moves all extremities, no focal motor deficits and no sensory deficits noted Sensorium / Orientation: awake and alert Psych mental status grossly normal and thought process normal Skin no rashes or lesions noted and no wounds MDM <Dr. Sreedhar Perez, DO - Last Filed: 12/13/24 22:02> [facility] Narrative Medical decision making narrative: Patient presenting with right lower quadrant abdominal pain that started yesterday evening. She is nontoxic-appearing on exam. She does have tenderness to McBurney's point. I did offer analgesia and she declined. She will be given IV fluids and labs will be obtained. CT scan of the abdomen and pelvis will be obtained to assess for appendicitis, kidney stone, mass, bowel obstruction, diverticulitis, and other etiology. Labs obtained, shows of leukocytosis at 15.5, UA negative for UTI. CT scan of the abdomen and pelvis at this time is pending. ED attending note: I evaluated the patient in conjunction with the JULIANA. I agree with his/her statements and above findings. I have personally performed a face to face assessment of the patient and have reviewed the JULIANA Note. I performed a substantive portion of the visit including all aspects of the following. I personally saw the patient performed chart review, physical exam, reviewed labs, imaging (if obtained), and formulated a treatment and management plan. Patient has significant right lower quadrant TTP and pain at McBurney's point. Showed a white blood cell count elevation. Awaiting CT read. Signed out to overnight physician pending CT read and final disposition. This note was generated with [employer] dictation software. It may contain incorrect words, spelling, and punctuation that were not noted in review of the chart prior to signing. This note was generated with [employer] dictation software. It may contain incorrect words, spelling, and punctuation that were not noted in review of the chart prior to signing. Lab Data Labs: Laboratory Results - last 24 hr 12/13/24 12/13/24 20:24 20:37 WBC 15.5 H RBC 4.03 L Hgb 12.8 Hct 36.9 L MCV 91.6 MCH 31.8 MCHC 34.7 RDW Std Deviation 43.8 RDW Coeff of Jeni 13.0 Plt Count 221 MPV 11.4 Immature Gran % (Auto) 0.300 Neut % (Auto) 81.5 H Lymph % (Auto) 8.5 L Sebastian % (Auto) 9.4 Eos % (Auto) 0.1 Baso % (Auto) 0.2 Absolute Neuts (auto) 12.6 H Absolute Lymphs (auto) 1.32 Nucleated RBC % 0 Sodium 134 Potassium 3.6 Chloride 100 Carbon Dioxide 20.4 L Anion Gap 14 BUN 11 Creatinine 0.76 Estim Creat Clear Calc 57.22 Est GFR (MDRD) Non-Af 86 BUN/Creatinine Ratio 14.3 Glucose 144 H Calcium 9.0 Total Bilirubin 1.25 AST 51 H ALT 26 Alkaline Phosphatase 86 Total Protein 7.3 Albumin 4.1 Globulin 3.2 Albumin/Globulin Ratio 1.3 Lipase 31 Urine Color Yellow Urine Clarity Clear Urine pH 6.0 Ur Specific [place] 1.010 Urine Protein 30 H Urine Glucose (UA) Normal Urine Ketones 15 H Urine Occult Blood 150 H Urine Nitrite Negative Urine Bilirubin Negative Urine Urobilinogen Normal Ur Leukocyte Esterase 25 H Urine RBC 0-5 SEEN Urine WBC 0-5 SEEN Ur Squamous Epith Cells 0 SEEN Urine Bacteria 0 SEEN Urine Mucus 0 SEEN Radiography Diagnostic Testing: Clinical Impression(s) from Imaging Studies Abdomen/Pelvis CT 12/13/24 20:19 IMPRESSION: 1. Findings of ACUTE APPENDICITIS. An APPENDICOLITH is seen in the tip of the appendix. 2. Suspicion of CHOLELITHIASIS. 3. PERIPORTAL EDEMA. 4. Hypodense nodules in the right hepatic lobe and caudate lobe. Consider small cysts or hemangiomas. 5. DIVERTICULOSIS WITHOUT SIGNS OF DIVERTICULITIS. 6. Other nonacute findings detailed above. Reading Location: [facility] <RACHEL Garza - Last Filed: 12/13/24 22:14> [facility] Narrative Medical decision making narrative: Patient presenting with right lower quadrant abdominal pain that started yesterday evening. She is nontoxic-appearing on exam. She does have tenderness to McBurney's point. I did offer analgesia and she declined. She will be given IV fluids and labs will be obtained. CT scan of the abdomen and pelvis will be obtained to assess for appendicitis, kidney stone, mass, bowel obstruction, diverticulitis, and other etiology. Labs obtained, shows of leukocytosis at 15.5, UA negative for UTI. CT scan of the abdomen and pelvis shows appendicitis. Patient given IV Zosyn. I did speak with Dr. Walker and she will be admitted to the hospital in stable condition for surgery in the morning. ED attending note: I evaluated the patient in conjunction with the JULIANA. I agree with his/her statements and above findings. I have personally performed a face to face assessment of the patient and have reviewed the JULIANA Note. I performed a substantive portion of the visit including all aspects of the following. I personally saw the patient performed chart review, physical exam, reviewed labs, imaging (if obtained), and formulated a treatment and management plan. Patient has significant right lower quadrant TTP and pain at McBurney's point. Showed a white blood cell count elevation. Awaiting CT read. Signed out to overnight physician pending CT read and final disposition. This note was generated with [employer] dictation software. It may contain incorrect words, spelling, and punctuation that were not noted in review of the chart prior to signing. This note was generated with [employer] dictation software. It may contain incorrect words, spelling, and punctuation that were not noted in review of the chart prior to signing. Lab Data Attestation: I reviewed the patient's lab results. Lab results narrative: WBC 15.5 Labs: Laboratory Results - last 24 hr 12/13/24 12/13/24 20:24 20:37 WBC 15.5 H RBC 4.03 L Hgb 12.8 Hct 36.9 L MCV 91.6 MCH 31.8 MCHC 34.7 RDW Std Deviation 43.8 RDW Coeff of Jeni 13.0 Plt Count 221 MPV 11.4 Immature Gran % (Auto) 0.300 Neut % (Auto) 81.5 H Lymph % (Auto) 8.5 L Sebastian % (Auto) 9.4 Eos % (Auto) 0.1 Baso % (Auto) 0.2 Absolute Neuts (auto) 12.6 H Absolute Lymphs (auto) 1.32 Nucleated RBC % 0 Sodium 134 Potassium 3.6 Chloride 100 Carbon Dioxide 20.4 L Anion Gap 14 BUN 11 Creatinine 0.76 Estim Creat Clear Calc 57.22 Est GFR (MDRD) Non-Af 86 BUN/Creatinine Ratio 14.3 Glucose 144 H Calcium 9.0 Total Bilirubin 1.25 AST 51 H ALT 26 Alkaline Phosphatase 86 Total Protein 7.3 Albumin 4.1 Globulin 3.2 Albumin/Globulin Ratio 1.3 Lipase 31 Urine Color Yellow Urine Clarity Clear Urine pH 6.0 Ur Specific [place] 1.010 Urine Protein 30 H Urine Glucose (UA) Normal Urine Ketones 15 H Urine Occult Blood 150 H Urine Nitrite Negative Urine Bilirubin Negative Urine Urobilinogen Normal Ur Leukocyte Esterase 25 H Urine RBC 0-5 SEEN Urine WBC 0-5 SEEN Ur Squamous Epith Cells 0 SEEN Urine Bacteria 0 SEEN Urine Mucus 0 SEEN Radiography Diagnostic Testing: Clinical Impression(s) from Imaging Studies Abdomen/Pelvis CT 12/13/24 20:19 IMPRESSION: 1. Findings of ACUTE APPENDICITIS. An APPENDICOLITH is seen in the tip of the appendix. 2. Suspicion of CHOLELITHIASIS. 3. PERIPORTAL EDEMA. 4. Hypodense nodules in the right hepatic lobe and caudate lobe. Consider small cysts or hemangiomas. 5. DIVERTICULOSIS WITHOUT SIGNS OF DIVERTICULITIS. 6. Other nonacute findings detailed above. Reading Location: [facility] Initial EKG: Comments: Due to recent cardiac ablation, EKG was obtained to assess for arrhythmia. EKG shows 70 bpm, sinus rhythm with PACs, no ST elevation, reviewed and interpreted by attending ED physician. Discharge Plan Triage Chief Complaint: Abd Pain ED Midlevel Provider: Anastacia Grant ED Provider: Sreedhar Perez Dx/Rx/DC Orders Prescriptions: No Action cholecalciferol (vitamin D3) 5,000 unit capsule 5,000 unit PO QDAY metoprolol succinate 25 mg tablet extended release 24 hr 25 mg PO DAILY Qty: 90 3RF atorvastatin 20 mg tablet 20 mg PO QDAY warfarin 4 mg tablet 4 mg PO QDAY Qty: 30 11RF Protocol: Dose Management Condition: Saturday Dose/Route: 2 mg Instruction: 0.5 x 4 mg tablets Condition: Saturday Dose/Route: 4 mg Instruction: 1 x 4 mg tablet Condition: Saturday Dose/Route: 4 mg Instruction: 1 x 4 mg tablet Condition: Saturday Dose/Route: 4 mg Instruction: 1 x 4 mg tablet Condition: Dose/Route: 4 mg Instruction: 1 x 4 mg tablet Condition: Saturday Dose/Route: 4 mg Instruction: 1 x 4 mg tablet Condition: Saturday Dose/Route: 2 mg Instruction: 0.5 x 4 mg tablets Protocol Text: Adjustment Start Date: Saturday12/04/24 INR Value: 2.2 INR Date: 12/04/24 Recheck Date: 12/11/24 Primary Care Provider: Oscar Palacio Referrals: Oscar Palacio MD [Primary Care Provider] - Print Language: Iraqi
--- NOTE | 2024-12-13 20:19 | CT_ITS ---
PROCEDURE: ABDOMEN/PELVIS W IV CONT ONLY 12/13/2024 REASON FOR EXAM: RLQ PAIN TECHNIQUE: Abdomen and pelvis CT with intravenous contrast. Contiguous axial scans of 3.75 mm slice thicknesses. Sagittal and coronal reconstruction images were obtained. One or more dose reduction techniques were used (e.g., automated exposure control, adjustment of mA and/or kv according to patient size, use of iterative reconstruction technique). PATIENT PREPARATION: Per protocol ORAL CONTRAST TYPE: None. CONTRAST: Isovue 370 VOLUME: 100mL. RADIATION DOSE SUMMARY: CTDlvol: 13.12 mGy DLP: 317.79 mGycm COMPARISON: No relevant prior. FINDINGS: Lung bases: Parenchymal scarring and/or subsegmental atelectasis. Liver: Small hypodense nodule, right hepatic lobe measuring 0.8 x 0.7 cm, axial image 18. small hypodense well-circumscribed nodule in the caudate lobe measuring 0.7 cm, axial image 14. Diffuse periportal edema. No biliary ductal dilatation. Gallbladder: Suspicion of a calculus in the fundus, axial image 36. Spleen: Unremarkable. Pancreas: Unremarkable. Adrenals: No masses or thickening. Kidneys: Excrete contrast material symmetrically. No hydronephrosis. No masses, cystic or solid. Bladder: Unremarkable. Reproductive Organs: Uterus surgically absent. Bowel: Sigmoid diverticulosis without signs of diverticulitis. Appendix: Dilated appendix with enhancing and thickened wall measuring 1.1 cm in diameter. A 4 mm appendicolith is seen at the tip of the appendix, axial image 74. Mild periappendiceal fat stranding. Lymph nodes: Unremarkable Vasculature: Unremarkable. Phleboliths. Peritoneum / Retroperitoneum: No free air. No free fluid. Anterior abdominal wall: Unremarkable. Bones: No osseous abnormalities. CT/Abdomen/Pelvis W IV Cont ONLY IMPRESSION: 1. Findings of ACUTE APPENDICITIS. An APPENDICOLITH is seen in the tip of the appendix. 2. Suspicion of CHOLELITHIASIS. 3. PERIPORTAL EDEMA. 4. Hypodense nodules in the right hepatic lobe and caudate lobe. Consider sma ll cysts or hemangiomas. 5. DIVERTICULOSIS WITHOUT SIGNS OF DIVERTICULITIS. 6. Other nonacute findings detailed above. Reading Location: [facility]
[2024-12-13 20:36] LABS: Absolute Lymphocyte Count 1.32 X10^3/uL (0.83-4.51); Absolute Neutrophil Count 12.6 X10^3/uL (2.0-7.7); Basophil# 0.03 X10^3/uL; Basophil% 0.2 % (0-1); Eosinophil# 0.01 X10^3/uL; Eosinophils% 0.1 % (0-5); Hematocrit 36.9 % (37-47); Hemoglobin 12.8 g/dL (12.0-15.0); Lymphocyte # 1.32 X10^3/ul (0.83-4.51); Lymphocyte % 8.5 % (19-41); Mean Corp Hgb Conc 34.7 g/dL (32-36); Mean Corpuscular Hgb 31.8 pg (27.0-32.0); Mean Corpuscular Volume 91.6 fL (81-99); Mean Platelet Vol. 11.4 fl (6.2-12.0); Monocyte# 1.46 X10^3/uL; Monocyte% 9.4 % (0-10); NRBC Flagged by Analyzer 0 % (0-5); Neutrophil # 12.59 X10^3/uL (2.7-7.7); Neutrophil % 81.5 % (47-70); Platelet Count 221 K/mm3 (150-450); RBC Distribution Width SD 43.8 fl (35.1-43.9); Red Blood Count 4.03 M/mm3 (4.2-5.4); White Blood Count 15.5 K/mm3 (4.4-11.0)
[2024-12-13] MEDS: 0.9% Normal Saline (1000mL) 1,000 ML 999 ML IV (20:42)
[2024-12-13 20:50] LABS: Bacteria 0 SEEN /hpf (None Seen); Mucous, Urine 0 SEEN /hpf (<or=2+); Squamous Epithelial Cells - UA 0 SEEN /hpf (5-10)
--- NOTE | 2024-12-13 20:50 | EKG12_ITS ---
Test Reason : ABD PAIN Blood Pressure : */* mmHG Vent. Rate : 70 BPM Atrial Rate : 70 BPM P-R Int : 142 ms QRS Dur : 132 ms QT Int : 448 ms P-R-T Axes : * 132 45 degrees QTcB Int : 483 ms Sinus rhythm with Premature atrial complexes Right bundle branch block Abnormal ECG Confirmed by LAURE CHINCHILLA, RIKKI ([id number]), food expeditor GRISELDA CHI ([id number]) on 12/15/2024 8:27:05 AM Referred By: Confirmed By: RIKKI KELSEY MD
[2024-12-13 20:51] LABS: ALB/GLOB Ratio 1.3 RATIO (0.9-2.4); AST(SGOT) 51 U/L (<=31); Alanine Aminotransfer ALT/SGPT 26 U/L (<=34); Albumin, Serum 4.1 g/dL (3.4-4.8); Alkaline Phosphatase 86 U/L (35-104); Anion Gap 14 (5-15); BUN 11 mg/dL (4-19); BUN/Creat Ratio 14.3 RATIO (10-20); Carbon Dioxide 20.4 mmol/L (21.0-32.0); Chloride 100 mmol/L (98-108); Creatinine, Serum 0.76 mg/dL (0.70-1.20); EST Glomerular Filtration Rate 86 (>60); Estimated Creatinine Clearance 57.22 ml/min (50-250); Globulin 3.2 g/dL (2.2-4.2); Glucose 144 mg/dL (70-99); Lipase 31 U/L (13-75); Potassium 3.6 mmol/L (3.3-5.1); Protein, Total 7.3 g/dL (5.9-8.4); Sodium Level 134 mmol/L (133-145); Total Bilirubin 1.25 mg/dL (0.00-1.30)
[2024-12-13 21:05] LABS: Color, Urine Yellow (Yellow); Glucose, Dipstick Normal (Normal); Ketone-Dipstick 15 mg/dl (Negative); Leukocyte Esterase-Dipstick 25 /ul (Negative); Nitrite-Dipstick Negative (Negative); Occult Blood-Urine 150 /ul (Negative); Protein-Dipstick 30 mg/dl (Negative); Urine Bilirubin Dipstick Negative (Negative); Urine Clarity Clear (Clear); Urine Urobilinogen Normal (Normal)
[2024-12-13 21:16] LABS: Red Blood Cells-Urine 0-5 SEEN /hpf (0-5); White Blood Cells 0-5 SEEN /hpf (0-5)
[2024-12-13 21:47] VITALS: BP 127/38; PULSE 68; RESP 18; O2SAT 96
[2024-12-13] MEDS: Piperacil/Tazobactam 3.375 GM in 0.9% Normal Saline (50mL MB+) 50 ML IV (22:29)
[2024-12-13 22:35] VITALS: BP 114/71; PULSE 70; RESP 18; TEMP 36.7; O2SAT 97
[2024-12-13] MEDS: Ondansetron 4 MG/2 ML Vial IV (23:08)
[2024-12-13] MEDS: Morphine 4 MG/ML Syringe IV (23:08)
[2024-12-13 23:13] LABS: Prothrombin Time (Protime)PT. 31.7 SECONDS (11.7-14.9)
[2024-12-13 23:26] VITALS: BP 146/56; PULSE 72; RESP 16; TEMP 36.8; O2SAT 95
[2024-12-13] MEDS: 0.9% Normal Saline (1000mL) 1,000 ML 100 ML IV (23:51)
[2024-12-13] MEDS: 0.9% Saline Lock 10 ML Syringe IV (23:56)
[2024-12-14] VITALS (25 sets, daily range): BP systolic 105–134; BP diastolic 41–71; PULSE 62–81; RESP 4–20; TEMP 36.3–37.6; O2SAT 87–100
[2024-12-14] MEDS: Ondansetron 4 MG/2 ML Vial IV (05:35)
[2024-12-14] MEDS: Piperacil/Tazobactam 3.375 GM in 0.9% Normal Saline (50mL MB+) 50 ML IV ×2 (05:35→15:07)
[2024-12-14] MEDS: 0.9% Normal Saline (100mL Bag) 100 ML 15 ML IV (05:35)
[2024-12-14 06:34] LABS: Hematocrit 30.9 % (37-47); Hemoglobin 10.6 g/dL (12.0-15.0); Mean Corp Hgb Conc 34.3 g/dL (32-36); Mean Corpuscular Hgb 31.7 pg (27.0-32.0); Mean Corpuscular Volume 92.5 fL (81-99); Mean Platelet Vol. 10.9 fl (6.2-12.0); Platelet Count 171 K/mm3 (150-450); RBC Distribution Width CV 13.2 % (11.6-14.6); Red Blood Count 3.34 M/mm3 (4.2-5.4); White Blood Count 11.3 K/mm3 (4.4-11.0)
[2024-12-14 06:48] LABS: International Normalized Ratio 1.8; Prothrombin Time (Protime)PT. 21.5 SECONDS (11.7-14.9)
--- NOTE | 2024-12-14 07:51 | HP.PCM.SX_ITS ---
HPI - General General Date of Admission: 12/13/24 HPI Narrative ZHAO BELTRAN, is a 64 F who presents with right lower quadrant abdominal pain. Patient says been there for 2 days. She said she did have some nausea but no vomiting. She denies fevers or chills. [facility] Medical History PAF (paroxysmal atrial fibrillation) HLD (hyperlipidemia) COVID-19 Shortness of breath Chest pain, unspecified COVID-19 Heart disease SOB (shortness of breath) Sjogren's disease Rheumatic mitral valve prolapse Lyme disease Migraine Hyperlipidemia Rheumatic tricuspid insufficiency Home Medications ?Medication ?Instructions ?Recorded ?Last Taken ?Type cholecalciferol (vitamin D3) 125 5,000 unit PO QDAY thomas pplement 03/27/18 Unknown History mcg (5,000 unit) capsule metoprolol succinate 25 mg 25 mg PO DAILY heart #90 ta bs 12/31/23 12/13/24 Rx tablet,extended release 24 hr atorvastatin 20 mg tablet 20 mg PO QDAY hld 06/26/24 U nknown History cyclosporine 0.05 % eye drops in a 1 drp ophthalmic (e ye) BID dry 12/13/24 Unknown History dropperette (Restasis) eyes' warfarin 4 mg tablet 4 mg PO .complex blood thinn er 12/13/24 12/13/24 History Allergy/AdvReac Type Severity Reaction Status Date / Time propranolol (From Inderal [place]) Allergy Mild depression Verified 12/13/24 20:07 Family History Grandmother Heart disease Diabetes Father Heart disease Surgical History H/O hysterectomy with oophorectomy History of mitral valve repair (~02/03/04) History of tricuspid valve repair (~2003) Social History Smoking Status: Never smoker alcohol intake: never ROS Constitutional Constitutional: Denies anorexia, chills, fatigue or fever(s) Eyes Eyes: Denies blurry vision ENT HEENT: Denies abnormal hearing Respiratory/Chest Respiratory/Chest: Denies cough or dyspnea Gastrointestinal Gastrointestinal: Reports abdominal pain and nausea; Denies constipation, diarrhea, dysphagia or vomiting Genitourinary Genitourinary: Denies change in urinary stream Musculoskeletal Musculoskeletal: Denies abnormal gait Integumentary Integumentary: Denies jaundice Neurologic Neurologic: Denies abnormal gait or dizziness Psychiatric Psychiatric: Denies anxiety Endocrine Endocrinology: Denies flushing Vital Signs Vital Signs Vital Signs: 12/13/24 20:07 12/13/24 21:47 12/13/24 22:35 Temperature 98.7 F 98.0 F Temperature Source Oral Pulse Rate 87 68 70 Respiratory Rate 16 18 18 Respiratory Effort Respiratory Depth Respiratory Pattern Blood Pressure 144/65 H 127/38 H 114/71 Blood Pressure Mean 91 67 85 Blood Pressure Source Blood Pressure Position Blood Pressure Location Pulse Ox 94 96 97 Oxygen Delivery Method Room Air Room Air 12/13/24 23:26 12/13/24 23:26 12/14/24 00:52 Temperature 98.3 F 99.3 F H Temperature Source Oral Oral Pulse Rate 72 71 Respiratory Rate 16 18 Respiratory Effort Normal Non-Labored Respiratory Depth Normal Respiratory Pattern Normal Blood Pressure 146/56 H 120/55 L Blood Pressure Mean 86 76 Blood Pressure Source Monitor Monitor Blood Pressure Position Semi-Fowlers Semi-Fowlers Blood Pressure Location Left Arm Left Arm Pulse Ox 95 97 Oxygen Delivery Method Room Air Room Air Room Air 12/14/24 01:27 12/14/24 02:27 12/14/24 02:54 Temperature 99.0 F 99.1 F 99.5 F H Temperature Source Oral Oral Oral Pulse Rate 72 72 68 Respiratory Rate 16 16 16 Respiratory Effort Respiratory Depth Respiratory Pattern Blood Pressure 112/54 L 105/51 L 112/53 L Blood Pressure Mean 73 69 72 Blood Pressure Source Monitor Monitor Monitor Blood Pressure Position Semi-Fowlers Semi-Fowlers Semi-Fowlers Blood Pressure Location Left Arm Left Arm Left Arm Pulse Ox 97 95 95 Oxygen Delivery Method Room Air Room Air Room Air 12/14/24 03:47 12/14/24 04:47 12/14/24 05:24 Temperature 99.1 F 99.5 F H 99.0 F Temperature Source Oral Oral Oral Pulse Rate 76 78 81 Respiratory Rate 16 16 16 Respiratory Effort Respiratory Depth Respiratory Pattern Blood Pressure 109/50 L 125/52 H 134/71 H Blood Pressure Mean 69 76 92 Blood Pressure Source Monitor Monitor Monitor Blood Pressure Position Semi-Fowlers Semi-Fowlers Semi-Fowlers Blood Pressure Location Left Arm Right Arm Left Arm Pulse Ox 95 97 95 Oxygen Delivery Method Room Air Room Air Room Air 12/14/24 07:47 12/14/24 07:50 Temperature 99.4 F H 99.4 F H Temperature Source Oral Oral Pulse Rate 79 79 Respiratory Rate 16 18 Respiratory Effort Respiratory Depth Respiratory Pattern Blood Pressure 126/57 H 126/57 H Blood Pressure Mean 80 80 Blood Pressure Source Monitor Monitor Blood Pressure Position Semi-Fowlers Semi-Fowlers Blood Pressure Location Left Arm Left Arm Pulse Ox 96 98 Oxygen Delivery Method Room Air Room Air Weight Weight: 117 lb 1.047 oz Body Mass Index (BMI) 20.0 Physical Exam Const oriented x3 and no apparent distress Resp normal respiratory effort Cardio regular rate and regular rhythm GI soft to palpation Palpation: tender RLQ Extremity normal to inspection Results Lab / Micro Data 12/14/24 06:27 12/13/24 20:24 Labs: Laboratory Results - last 24 hr 12/13/24 20:24: WBC 15.5 H, RBC 4.03 L, Hgb 12.8, Hct 36.9 L, MCV 91.6, MCH 31.8, MCHC 34.7, RDW Std Deviation 43.8, RDW Coeff of Jeni 13.0, Plt Count 221, MPV 11.4, Immature Gran % (Auto) 0.300, Neut % (Auto) 81.5 H, Lymph % (Auto) 8.5 L, [place] % (Auto) 9.4, Eos % (Auto) 0.1, Baso % (Auto) 0.2, Absolute Neuts (auto) 12.6 H, Absolute Lymphs (auto) 1.32, Nucleated RBC % 0, Sodium 134, Potassium 3.6, Chloride 100, Carbon Dioxide 20.4 L, Anion Gap 14, BUN 11, Creatinine 0.76, Estim Creat Clear Calc 57.22, Est GFR (MDRD) Non-Af 86, BUN/Creatinine Ratio 14.3, Glucose 144 H, Calcium 9.0, Total Bilirubin 1.25, AST 51 H, ALT 26, Alkaline Phosphatase 86, Total Protein 7.3, Albumin 4.1, Globulin 3.2, Albumin/Globulin Ratio 1.3, Lipase 31 12/13/24 20:37: Urine Color Yellow, Urine Clarity Clear, Urine pH 6.0, Ur Specific [place] 1.010, Urine Protein 30 H, Urine Glucose (UA) Normal, Urine Ketones 15 H, Urine Occult Blood 150 H, Urine Nitrite Negative, Urine Bilirubin Negative, Urine Urobilinogen Normal, Ur Leukocyte Esterase 25 H, Urine RBC 0-5 SEEN, Urine WBC 0-5 SEEN, Ur Squamous Epith Cells 0 SEEN, Urine Bacteria 0 SEEN, Urine Mucus 0 SEEN 12/13/24 22:47: PT 31.7 H, INR 3.0, Blood Type A NEGATIVE 12/14/24 06:27: WBC 11.3 H, RBC 3.34 L, Hgb 10.6 L, Hct 30.9 L, MCV 92.5, MCH 31.7, MCHC 34.3, RDW Std Deviation 45.0 H, RDW Coeff of Jeni 13.2, Plt Count 171, MPV 10.9, PT 21.5 H, INR 1.8 Imaging Radiology Impression Abdomen/Pelvis CT 12/13/24 20:19 IMPRESSION: 1. Findings of ACUTE APPENDICITIS. An APPENDICOLITH is seen in the tip of the appendix. 2. Suspicion of CHOLELITHIASIS. 3. PERIPORTAL EDEMA. 4. Hypodense nodules in the right hepatic lobe and caudate lobe. Consider small cysts or hemangiomas. 5. DIVERTICULOSIS WITHOUT SIGNS OF DIVERTICULITIS. 6. Other nonacute findings detailed above. Reading Location: [facility] Assessment & Plan Assessment/Plan (1) PAF (paroxysmal atrial fibrillation): PLAN: Patient had cardiac ablation on . She is currently on Coumadin. I ordered 2 units of FFP overnight and recheck this morning is 1.8. Will order a twelve-lead chest x-ray before surgery. (2) Acute appendicitis: PLAN: I discussed laparoscopic appendectomy with the patient in detail. I discussed the risks including but not limited to bleeding, infection, injury other organs such as the bowel, bladder, ureter. Patient understands all the risks and is willing to proceed. Cristi Walker MD Pager: [facility] [address] [place] [address], [address] [place] [address] Office:
--- NOTE | 2024-12-14 09:12 | PRE.ANES_ITS ---
ASA Classification* ASA Classification ASA Classification: 2 Assessment & Plan Anesthesia* Anesthesia Assessment Anesthesia Assessment: Discussed sedation and/or anesthesia options, risks, benefits, and alternatives with patient/parents/legal guardian/POA. Questions invited. The patient/parents/legal guardian/POA seems to understand and agrees to proceed with anesthesia plan. Reviewed the physical assessment, medical history, allergy history and patient home medications list prior to surgery/procedure/anesthetic and documented any changes. Performed airway and anesthesia risk assessments. Anesthesia Type Anesthesia Type: General Anesthesia Focused Assessment* Temperature: 99.4 F Pulse Rate: 79 Blood Pressure: 126/57 Respiratory Rate: 18 Pulse Ox: 98 Airway Assessment Mouth opens: >3 cm Mallampati Score: II Focused Labs Anesthesia Preop lab: CBC WBC 11.3 K/mm3 (4.4-11.0) H 12/14/24 06: 5 RBC 3.34 M/mm3 (4.2-5.4) L 12/14/24 06:12/14/24 Hgb 10.6 g/dL (12.0-15.0) L 12/14/24 06: 5 Hct 30.9 % (37-47) L 12/14/24 06:12/14/24 Plt Count 171 K/mm3 (150-450) 12/14/24 06:27 12/14/24 CHEMISTRY Potassium 3.6 mmol/L (3.3-5.1) 12/13/24 20:24 12/13/24 Sodium 134 mmol/L (133-145) 12/13/24 20:24 12/13/24 Magnesium 2.0 mg/dL (1.6-2.6) 06/15/24 10:02 06/15/24 BUN 11 mg/dL (4-19) 12/13/24 20:12/13/24 Creatinine 0.76 mg/dL (0.70-1.20) 12/13/24 20:24 12/13/24 Glucose 144 mg/dL (70-99) H 12/13/24 20:24 12/13/24 TSH 0.728 uIU/mL (0.358-3.740) 06/15/24 10:02 05/19 COAG PT 21.5 SECONDS (11.7-14.9) H 12/14/24 06:27 11/16 10/10 Pre-Assessment Diagnosis/Proposed Procedure Planned Operative Procedure(s): laproscopic appendectomy Anesthesia History Anesthesia History - industrial renderer: Anesthesia History - industrial renderer Hx Hospitalization Any Problems With Anesthesia No 12/13/24 23:40 Cholinesterase deficiency No 12/13/24 23:40 You/Your Family Experience No 12/13/24 23:40 fever (hyperthermia) with Relationship Recent Exposure to Contagious No 12/13/24 23:40 Disease Does patient have nerve No 12/13/24 23:40 stimulator Patient instructed to have device shut off --Does patient have Pacemaker No 12/14/24 07:47 or ICD? When Was Last Pacemaker Check QUESTION #4 FULL TEXT: You/Your Family Experience fever (hyperthermia) with Anesthesia Last Oral Intake Last Oral intake: Last Oral Intake NPO since 00:00 12/14/24 07:47 Meds taken in AM with sips of No 12/14/24 07:47 water? Meds patient instructed to take am of surgery PONV PONV - industrial renderer: PONV - industrial renderer Female HX of Motion Sickness HX of N/V After Surgery Non-Smoker Duration of Surgery greater than 60 minutes Number of Risk Factors PONV Score Height & Weight Height & Weight: Anesthesia: Height & Weight Height 5 ft 4.17 in 12/14/24 07:47 Weight: 53.1 kg 12/14/24 07:47 Body Mass Index (BMI) 20.0 12/14/24 07:47 Respiratory Assessment Respiratory Assessment - industrial renderer: Respiratory Tract Infection Hx - industrial renderer Hx Respiratory Tract Infection No 12/13/24 23:40 STOP Sleep Apnea STOP Sleep Apnea - industrial renderer: STOP Sleep Apnea - industrial renderer Hx Hypertension No 12/13/24 23:32 Hx Sleep Apnea No 12/13/24 23:32 CPAP BIPAP Do you snore loudly (louder No 12/13/24 23:32 than talking or can be heard Do you often feel tired/ No 12/13/24 23:32 fatigued/ sleepy during daytime? Has anyone observed you stop No 12/13/24 23:32 breathing during sleep? STOP Results Negative 12/13/24 23:32 QUESTION #5 FULL TEXT : Do you snore loudly (louder than talking or can be heard through closed doors)? Tobacco Use History Tobacco Use History - industrial renderer: Tobacco Use History - industrial renderer Tobacco Use Smoking Status Never smoker 12/13/24 23:32 Hx Tobacco Use No 12/13/24 23:32 Years Smoking Packs Smoked per Day Smoking Cessation Date was within the last 15 years Hx Smoking Cessation Date Hx Smoking Cessation Counseling Hematologic Medial History Hematologic Hx - industrial renderer: Hematologic Medical Hx - rn med surg Hx of Blood Transfusion No 12/13/24 23:32 Hx of Transfusion in last 3 No 12/13/24 23:32 Months Date of Last Transfusion (if within last 3 months) Ever experience any problems No 12/13/24 23:32 with transfusion(s)? Specify any problems Hx of Preganancy in last 3 N/A 12/13/24 23:32 Months Nurse Filling Out Transfusion AHINES 12/13/24 23:32 & Questions: Date: 12/13/24 12/13/24 23:32 Time: 23:34 12/13/24 23:32 Patient unable to answer at this time (ie. confused, unrespo /Reproduction History /Reproductive History - industrial renderer: /Reproductive Hx- industrial renderer Hx Now No 12/13/24 23:40 Gestational Age (in weeks): EDC: Hx Hx Para Hx Section SAB No 12/13/24 23:40 Active Medications Active Medications: Current Medications Generic Name Dose Route Start Last Admin Trade Name Freq PRN Reason Stop Dose Admin Sodium Chloride 1,000 mls @ 100 mls/hr 12/13/24 22:15 12/14/24 01:05 IV 0 mls/hr .Q10H RUBEN Infusion Piperacillin Sod/Tazobactam 50 mls @ 12.5 mls/hr 12/14/24 06:00 12/14/24 05:35 Sod 3.375 gm/ Sodium Chloride IV 12.5 mls/hr Q8 RUBEN Administration Sodium Chloride 100 mls @ 15 mls/hr 12/14/24 03:09 12/14/24 05:35 IV 15 mls/hr .Q6H40M PRN Administration Saline Flush Sodium Chloride 100 mls @ 15 mls/hr 12/14/24 03:09 IV .Q6H40M PRN Additional IVPB Infusion Iopamidol 0 ml 12/13/24 20:30 12/13/24 22:59 Contrast Allergy Safety Check IV Not Given X1 RUBEN Morphine Sulfate 2 - 4 mg 12/13/24 22:14 Morphine 2 Mg/Ml Syringe IV Q2H PRN PRN Pain Score 4-10 Ondansetron HCl 4 mg 12/13/24 22:14 12/14/24 05:35 Ondansetron 4 Mg/2 Ml Vial IV 4 mg Q6H PRN PRN Administration NAUSEA/VOMITING Sodium Chloride 10 - 40 ml 12/13/24 22:14 12/13/24 23:56 0.9% Saline Lock 10 Ml Syringe IV 10 ml UD PRN Administration SALINE FLUSH Sodium Chloride 10 - 40 ml 12/13/24 22:14 0.9% Saline Lock 10 Ml Syringe IV UD PRN SALINE FLUSH Sodium Chloride 10 - 40 ml 12/13/24 23:35 0.9% Saline Lock 10 Ml Syringe IV UD PRN SALINE FLUSH Sodium Chloride 10 - 40 ml 12/14/24 03:09 0.9% Saline Lock 10 Ml Syringe IV UD PRN SALINE FLUSH PFSH Medical History PAF (paroxysmal atrial fibrillation) HLD (hyperlipidemia) COVID-19 Shortness of breath Chest pain, unspecified COVID-19 Heart disease SOB (shortness of breath) Sjogren's disease Rheumatic mitral valve prolapse Lyme disease Migraine Hyperlipidemia Rheumatic tricuspid insufficiency Home Medications ?Medication ?Instructions ?Recorded ?Last Taken ?Type cholecalciferol (vitamin D3) 125 5,000 unit PO QDAY thomas pplement 03/27/18 Unknown History mcg (5,000 unit) capsule metoprolol succinate 25 mg 25 mg PO DAILY heart #90 ta bs 12/31/23 12/13/24 Rx tablet,extended release 24 hr atorvastatin 20 mg tablet 20 mg PO QDAY hld 06/26/24 U nknown History cyclosporine 0.05 % eye drops in a 1 drp ophthalmic (e ye) BID dry 12/13/24 Unknown History dropperette (Restasis) eyes' warfarin 4 mg tablet 4 mg PO .complex blood thinn er 12/13/24 12/13/24 History Allergy/AdvReac Type Severity Reaction Status Date / Time propranolol (From Inderal [place]) Allergy Mild depression Verified 12/14/24 09:00 Family History Grandmother Heart disease Diabetes Father Heart disease Surgical History H/O hysterectomy with oophorectomy History of mitral valve repair (~02/03/04) History of tricuspid valve repair (~2003) Social History Smoking Status: Never smoker alcohol intake: never Review of Systems (Anesthesia) ROS Narrative System reviewed and no additional complaints, except as documented.
--- NOTE | 2024-12-14 10:00 | APP_PTH ---
PATIENT: ZHAO BELTRAN LOC: [facility] U#:[id number] AGE/SX: 64/F ROOM: CO322 RE12/13/[address]: Dr. Cristi Walker MD : 1960 BED: 1 DIS: 12/14/2024 SPEC #: [id number] RECD: 12/14/24 13:28 STATUS: REN PADRON #: [id number] STEPHANIE: 12/14/24 10:[address]: Cristi Walker DEPT: SURGICAL PATHOLOGY RECD BY: Barry Nieves ENTERED: 12/14/24 13:28 SP TYPE: APPENDIX OTHR DR: Dr. Oscar Palacio MD Tissues: A - Appendix, NOS Procedures: Surgery Specimen Level III HEADER OPERATION: Laparoscopic appendectomy PRE-OP DIAGNOSIS: Paroxysmal atrial fibrillation, acute appendicitis TISSUE SUBMITTED: A- Appendix MICROSCOPIC DIAGNOSIS A. Appendix, Laparoscopic Appendectomy: * Acute appendicitis. MICROSCOPIC DESCRIPTION Slides are reviewed. GROSS DESCRIPTION A. Received in formalin in a container labeled with the patient's name, date of , and appendix is a predominantly intact appendectomy specimen measuring 7.5 cm in length with an average diameter of 1.0 cm. The serosa is shah-pink and diffusely roughened. The stapled resection margin is inked black and serial sections reveal a lumen ranging from 0.2 to 0.5 cm filled with thick red material. The tip of the appendix appears dilated (approximately 1.5 cm in diameter) and is filled with thin red fluid. There is an average wall thickness of 0.4 cm. No distinct perforation or fecalith is identified. RS A1 (including resection margin, en face, cross-section, and tip bisected). [facility] 12-14-2024 CPT:99660
[2024-12-14] MEDS: Bupiv/Epi 0.25% 30 ML Vial (10:25)
--- NOTE | 2024-12-14 10:39 | PCM.OPRPT ---
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 Track And Field Coach: Lena Reed Tasks completed by animal care assistant: Retracting Type of Anesthesia: General/Regional RN Documented Start/Stop Times: Operation Date: 12/14/24 10:00 Case Time Into Pre-Op 12/14/24 08:56 Anesthesia Start 12/14/24 09:53 Into Room 12/14/24 09:53 Procedure Start 12/14/24 10:08 Procedure End 12/14/24 10:32 Anesthesia End 12/14/24 10:39 Out of Room 12/14/24 10:39 Procedure Start Time: 10:08 Procedure Stop Time: 10:32 Select all DRAINS/GRAFTS/IMPLANTS that apply: None Estimated Blood Loss: 5 Specimen collected: Yes Description of specimen(s) removed: Appendix Description of surgery: The patient was brought into the operating room and general anesthesia was induced. The left arm was tucked and the abdomen was prepped and draped in usual sterile fashion. A small midline incision was made superior to the umbilicus and deepened to the level of the fascia. The fascia was elevated and incised. The peritoneum was also elevated and incised. A finger sweep was performed and a balloon trocar was placed into the abdomen and inflated. The abdomen was insufflated to 15 mmHg and the camera was inserted and the abdomen was inspected for any injuries upon entering the abdomen. There were none. The patient was placed in Trendelenburg position and a 5 mm ports placed in the left lower quadrant and suprapubic areas under direct visualization. Next using atraumatic bowel graspers the appendix was identified. The appendix was grasped and elevated and Enseal was used to take down the mesoappendix. The appendix was densely adherent to the right colon. A stapler was used to come across the base of the appendix. The appendix was then placed in Endo Catch bag and removed through the umbilical incision. The staple line was inspected and found to be hemostatic and intact. The 2 5 mm ports are removed under direct visualization. The balloon trocar was deflated and removed and all the air was removed from the abdomen. The umbilical incision fascia was closed with an 0 Vicryl [id number] suture. The incisions were then irrigated with saline and dried. Local anesthetic was injected into the incision sites. The skin incisions were then closed with interrupted 4-0 Monocryl suture and Steri-Strips. Bandages were applied and the patient was awoken and taken to PACU in stable condition. Patient tolerated the procedure well. Surgical Findings: Wound class III Complications Complications: No Admit VTE Documentation VTE Mechan Device Prophylaxis: SCD's
--- NOTE | 2024-12-14 10:41 | SUR.PHASEI ---
REQUIRED BAGGING VIA AMBUBAG & IV NARCAN PER SANDRINE HERNANDEZ, ON PACU ARRIVAL D/T NON-RESPONSIVE & APNEIC, HYPOXIC. RECOVERED QUICKLY, ETCO2 MONITOR READING 31.
--- NOTE | 2024-12-14 10:42 | DCINST_ITS ---
Discharge Instructions Procedure Appendectomy Diet Discharge Diet: Light diet - advance as tolerated Activity Discharge Activity: May Not Drive (for 2-3 days or while taking narcotic pain medications.) May shower in (days): 1 Lifting Restrictions: 20 lbs for 2 weeks Dressing / Incision Call your doctor if your incision/area has: Continuous Slow Oozing, Sudden Increased Bleeding, Increased Pain/ Swelling, Increased Redness and Foul Smelling Discharge Call your doctor if you observe: Fever of 101 or Higher Suture Line Care: Avoid Pulling/Pushing and Avoid Pinching/Bending Remove Dressing in: 2 days Cleanse incision/area with: Soap & Water Additional Dressing/Incision Instructions:: Keep dressing clean and dry. Change or remove dressing in 2 days. Leave steri strips for 1 week. May protect with a gauze bandaid. Follow Up Care Please Follow Up With: Cristi Walker MD When: Please call to schedule 2 week follow up appointment. [phone] Test Results: Test results from this visit will be discussed in further detail at your follow- up appointment, if applicable. Discharge Plan Admission Admit Date/Time: 12/13/24 22:14 Attending Provider: Cristi Walker Primary Care Provider: Oscar Palacio Discharge Orders/Prescriptions Prescriptions: New oxycodone 5 mg Tablet 5 - 10 mg PO Q4H PRN PRN (Reason: Pain Score 4-10) 5 Days Qty: 14 0RF Continued cholecalciferol (vitamin D3) 5,000 unit capsule 5,000 unit PO QDAY metoprolol succinate 25 mg tablet extended release 24 hr 25 mg PO DAILY Qty: 90 3RF atorvastatin 20 mg tablet 20 mg PO QDAY warfarin 4 mg tablet 4 mg PO .complex Protocol: Dose Management Condition: Saturday Dose/Route: 2 mg Instruction: 0.5 x 4 mg tablets Condition: Saturday Dose/Route: 4 mg Instruction: 1 x 4 mg tablet Condition: Saturday Dose/Route: 4 mg Instruction: 1 x 4 mg tablet Condition: Saturday Dose/Route: 4 mg Instruction: 1 x 4 mg tablet Condition: Dose/Route: 4 mg Instruction: 1 x 4 mg tablet Condition: Saturday Dose/Route: 4 mg Instruction: 1 x 4 mg tablet Condition: Saturday Dose/Route: 2 mg Instruction: 0.5 x 4 mg tablets Protocol Text: Adjustment Start Date: Saturday12/04/24 INR Value: 2.2 INR Date: 12/04/24 Recheck Date: 12/11/24 Patient Comments: MTWTH 4mg PO daily, F,SA,CURRY 2mg PO daily cyclosporine [Restasis] 0.05 % dropperette 1 drp ophthalmic (eye) BID Referrals / Follow Up: Oscar Palacio MD [Primary Care Provider] - Disposition Disposition (needs filled in before D/C Order can be placed): Home, Self Care
--- NOTE | 2024-12-14 10:54 | PCM.POST.ANE ---
Anesthesia: Postop Eval I Current Vital Signs Temperature: 99.7 F Pulse Rate: 62 Blood Pressure: 107/49 Respiratory Rate: 12 Pulse Ox: 100 Oxygen Delivery Method: Room Air Assessment Airway patent: Yes Spontaneous unlabored respirations: Yes Mental status: Asleep nausea: No Vomiting: No Anesthesia Complication: No Fluid Hydration Crystalloid volume administer (ml): 600 Total IV fluid infused: 600 Progress Note Anesthesia document: Postop Eval 1 completed: Yes
--- NOTE | 2024-12-14 11:21 | POSTOPAN2_ITS ---
Anesthesia Postop Eval I Sum Postop Eval Completion status Anesthesia document: Postop Eval 1 completed: Yes Anesthesia Postop Eval I Summary Anesthesia Postop Eval I Summary: Anesthesia Postop Eval I: Assessment Summary Airway patent Yes 12/14/24 10:55 RESEARCH CHEMICAL [email or web address] Spontaneous unlabored Yes 12/14/24 10:55 RESEARCH CHEMICAL [email or web address] respirations Mental status Asleep 12/14/24 10:55 RESEARCH CHEMICAL [email or web address] nausea No 12/14/24 10:55 RESEARCH CHEMICAL [email or web address] Vomiting No 12/14/24 10:55 RESEARCH CHEMICAL [email or web address] Anesthesia Postop Eval I: Fluid Summary Crystalloid volume administer 600 12/14/24 10:55 RESEARCH CHEMICAL [email or web address] (ml) Colloids volume administered ( ml) Blood Product volume administered (ml) Total IV fluid infused 600 12/14/24 10:55 RESEARCH CHEMICAL [email or web address] Anesthesia Postop Eval I: Summary Notes Anesthesia Complication No 12/14/24 10:55 RESEARCH CHEMICAL [email or web address] Anesthesia Complication Comment: Post-operative progress note Anesthesia: Postop Eval II Evaluation Mental status: Awake Pain Level: 1 nausea: No Vomiting: No
--- NOTE | 2024-12-14 11:21 | PCM.POSTANE2 ---
Anesthesia Postop Eval I Sum Postop Eval Completion status Anesthesia document: Postop Eval 1 completed: Yes Anesthesia Postop Eval I Summary Anesthesia Postop Eval I Summary: Anesthesia Postop Eval I: Assessment Summary Airway patent Yes 12/14/24 10:55 SOCIAL MEDIA MARKETING [email or web address] Spontaneous unlabored Yes 12/14/24 10:55 SOCIAL MEDIA MARKETING [email or web address] respirations Mental status Asleep 12/14/24 10:55 SOCIAL MEDIA MARKETING [email or web address] nausea No 12/14/24 10:55 SOCIAL MEDIA MARKETING [email or web address] Vomiting No 12/14/24 10:55 SOCIAL MEDIA MARKETING [email or web address] Anesthesia Postop Eval I: Fluid Summary Crystalloid volume administer 600 12/14/24 10:55 SOCIAL MEDIA MARKETING [email or web address] (ml) Colloids volume administered ( ml) Blood Product volume administered (ml) Total IV fluid infused 600 12/14/24 10:55 SOCIAL MEDIA MARKETING [email or web address] Anesthesia Postop Eval I: Summary Notes Anesthesia Complication No 12/14/24 10:55 SOCIAL MEDIA MARKETING [email or web address] Anesthesia Complication Comment: Post-operative progress note Anesthesia: Postop Eval II Evaluation Mental status: Awake Pain Level: 1 nausea: No Vomiting: No
--- NOTE | 2024-12-14 11:33 | SUR.PHASEI ---
RR IMPROVED TO 14-20, CURRENTLY ON ROOM AIR, SPO2 95-98%, ETCO2 STABLE. BP STABLE. REPORTS NAUSEA, MEDICATED w/ ZOFRAN, QUEASEASE GIVEN.
--- NOTE | 2024-12-14 13:21 | PHA.DC.MC.R ---
Pharmacy [facility] has performed discharge medication reconciliation and counseling for this patient. The patient's discharge medication list was reviewed for discrepancies and discrepancies were resolved. The patient was counseled on the following discharge medications and changes in medications for homegoing were reviewed. The Reason for Use, instructions for use, and potential side effects were reviewed for all new medications. The patient's questions regarding all of their medications were answered. 1. Oxycodone 5-10 mg PO Q4H PRN pain 4-10 The patient was able to verbally demonstrate an understanding of their discharge medications. Medications at Discharge Home Medications cholecalciferol (vitamin D3) 125 mcg (5,000 unit) capsule 5,000 unit PO QDAY supplement 03/27/18 metoprolol succinate 25 mg tablet,extended release 24 hr 25 mg PO DAILY heart #90 tabs 12/31/23 atorvastatin 20 mg tablet 20 mg PO QDAY hld 06/26/24 cyclosporine 0.05 % eye drops in a dropperette (Restasis) 1 drp ophthalmic (eye) BID dry eyes' 12/13/24 warfarin 4 mg tablet 4 mg PO .complex blood thinner 12/13/24 oxycodone 5 mg tablet 5 - 10 mg (1 - 2 x 5 mg) PO Q4H PRN PRN Pain Score 4-10 5 days #14 tabs 12/14/24
[2024-12-14] MEDS: 0.9% Normal Saline (1000mL) 1,000 ML 100 ML IV (15:08)
--- NOTE | 2024-12-14 16:20 | CASEMGMT ---
Pt has an order for DC placed. KELSEY CM to pt room at this time. Pt resting comfortably in bed and is A&Ox4. Pt states that she feels safe returning home once she is medically ready and denies the need for HH or OP Tx. Pt states that she lives at home with her and that he will be her ride home. Pt denies any further questions or concerns at this time.
== END 2024-12-14 19:27 | disposition home or self-care (01) ==
LOC: ED 20:40 → MS3 22:23
PROVIDERS: Anesthesiology; Physician Assistant; Admitting Provider Surgery; Emergency Provider Emergency Medicine; PCP Internal Medicine; Visit Provider Surgery
PROC: 0DTJ4ZZ Resection of Appendix, Percutaneous Endoscopic Approach (ICD-10-PCS; CPT 44970; principal; 2024-12-14 09:40)
DX: K35.80 Unspecified acute appendicitis (principal); I48.0 Paroxysmal atrial fibrillation; E78.5 Hyperlipidemia, unspecified; Z79.01 Long term (current) use of anticoagulants; Z79.899 Other long term (current) drug therapy; Z90.710 Acquired absence of both cervix and uterus
CPT/HCPCS: 44970; 00840; 36415; 74177; 80053; 81001; 83690; 85025; 85027; 85610; 86900; 86901; 88304; 93005; 96361; 96365; 96375; 96376; 99221; 99283; P9017; Q9967; A4216; G0378; J2310; J2405

== ENCOUNTER 2025-01-12 07:19 | Outpatient (RCR) | payer OTHER, SELFPAY ==
[2024-12-22 09:05] LABS: International Normalized Ratio 1.8; Prothrombin Time (Protime)PT. 21.5 SECONDS (11.7-14.9)
[2024-12-29 08:57] LABS: International Normalized Ratio 2.6; Prothrombin Time (Protime)PT. 28.2 SECONDS (11.7-14.9)
[2025-01-05 08:10] LABS: International Normalized Ratio 2.2
[2025-01-05 08:18] LABS: AST(SGOT) 31 U/L (<=31); Alanine Aminotransfer ALT/SGPT 25 U/L (<=34); Albumin, Serum 4.5 g/dL (3.4-4.8); Alkaline Phosphatase 92 U/L (35-104); Bilirubin, Direct 0.28 mg/dL (0.00-0.30); Cholesterol 180 mg/dL (<=200); High Density Lipoprotein 73 mg/dL; Low Density Lipoprotein Calc. 93 mg/dL; Protein, Total 7.5 g/dL (5.9-8.4); Total Bilirubin 0.67 mg/dL (0.00-1.30); Triglycerides 70 mg/dL; Very Low Density Lipoprotein 14 mg/dL (5-40); cholesterol:hdl ratio screen 2.45
[2025-01-12 08:15] LABS: International Normalized Ratio 2.8; Prothrombin Time (Protime)PT. 29.9 SECONDS (11.7-14.9)
== END 2025-01-13 18:00 | disposition home or self-care (01) ==
LOC: LAB 07:19
PROVIDERS: Nurse Practitioner Family; PCP Internal Medicine; Referring Provider Internal Medicine Cardiovascular Disease; Visit Provider Internal Medicine Cardiovascular Disease
DX: I48.0 Paroxysmal atrial fibrillation (principal); Z79.01 Long term (current) use of anticoagulants; E78.00 Pure hypercholesterolemia, unspecified
CPT/HCPCS: 36415; 80061; 80076; 85610

== ENCOUNTER 2025-02-02 07:23 | Outpatient (RCR) | payer OTHER, SELFPAY ==
[2025-01-19 08:22] LABS: International Normalized Ratio 2.5; Prothrombin Time (Protime)PT. 27.6 SECONDS (11.7-14.9)
[2025-02-02 14:07] LABS: International Normalized Ratio 2.4; Prothrombin Time (Protime)PT. 26.3 SECONDS (11.7-14.9)
== END 2025-02-02 18:00 | disposition home or self-care (01) ==
LOC: LAB 07:23
PROVIDERS: PCP Internal Medicine; Referring Provider Internal Medicine Cardiovascular Disease; Visit Provider Internal Medicine Cardiovascular Disease
DX: I48.0 Paroxysmal atrial fibrillation (principal); Z79.01 Long term (current) use of anticoagulants
CPT/HCPCS: 36415; 85610

== ENCOUNTER 2025-03-03 07:20 | Outpatient (RCR) | payer OTHER, SELFPAY ==
[2025-03-03 07:53] LABS: International Normalized Ratio 2.6; Prothrombin Time (Protime)PT. 28.2 SECONDS (11.7-14.9)
== END 2025-03-03 18:00 | disposition home or self-care (01) ==
LOC: LAB 07:20
PROVIDERS: PCP Internal Medicine; Referring Provider Internal Medicine Cardiovascular Disease; Visit Provider Internal Medicine Cardiovascular Disease
DX: Z79.01 Long term (current) use of anticoagulants (principal); I48.0 Paroxysmal atrial fibrillation
CPT/HCPCS: 36415; 85610

== ENCOUNTER → 2025-04-01 | Outpatient (CLI) | payer OTHER, SELFPAY ==
[2025-04-01 19:56] LABS: AST(SGOT) 27 U/L (<=31); Alanine Aminotransfer ALT/SGPT 35 U/L (<=34); Albumin, Serum 4.4 g/dL (3.4-4.8); Alkaline Phosphatase 87 U/L (35-104); Bilirubin, Direct 0.15 mg/dL (0.00-0.30); Cholesterol 186 mg/dL (<=200); Globulin 2.9 g/dL (2.2-4.2); Low Density Lipoprotein Calc. 70 mg/dL; Triglycerides 85 mg/dL; Very Low Density Lipoprotein 17 mg/dL (5-40); cholesterol:hdl ratio screen 1.87
== END | disposition home or self-care (01) ==
LOC: LABSPEC 17:19
PROVIDERS: Nurse Practitioner Family; PCP Internal Medicine; Visit Provider Internal Medicine Cardiovascular Disease
DX: I48.0 Paroxysmal atrial fibrillation (principal); Z79.01 Long term (current) use of anticoagulants; E78.00 Pure hypercholesterolemia, unspecified
CPT/HCPCS: 36415; 80061; 80076

== ENCOUNTER 2025-04-02 11:44 | Outpatient (RCR) | payer OTHER, SELFPAY ==
[2025-04-02 12:05] LABS: Prothrombin Time (Protime)PT. 34.7 SECONDS (11.7-14.9)
== END 2025-04-15 21:29 | disposition home or self-care (01) ==
LOC: LAB 11:44
PROVIDERS: PCP Internal Medicine; Referring Provider Internal Medicine Cardiovascular Disease; Visit Provider Internal Medicine Cardiovascular Disease
DX: Z79.01 Long term (current) use of anticoagulants (principal); I48.0 Paroxysmal atrial fibrillation
CPT/HCPCS: 36415; 85610

== ENCOUNTER 2025-05-14 07:22 | Outpatient (RCR) | payer OTHER, SELFPAY ==
[2025-04-16 08:18] LABS: Prothrombin Time (Protime)PT. 34.1 SECONDS (11.7-14.9)
[2025-04-30 08:54] LABS: Prothrombin Time (Protime)PT. 24.7 SECONDS (11.7-14.9)
[2025-05-14 08:36] LABS: Prothrombin Time (Protime)PT. 27.1 SECONDS (11.7-14.9)
== END 2025-05-14 18:00 | disposition home or self-care (01) ==
LOC: LAB 07:22
PROVIDERS: PCP Internal Medicine; Referring Provider Internal Medicine Cardiovascular Disease; Visit Provider Internal Medicine Cardiovascular Disease
DX: I48.0 Paroxysmal atrial fibrillation (principal); Z79.01 Long term (current) use of anticoagulants
CPT/HCPCS: 36415; 85610

== ENCOUNTER 2025-06-11 08:45 | Outpatient (RCR) | payer OTHER, SELFPAY ==
[2025-06-11 09:27] LABS: Prothrombin Time (Protime)PT. 26.2 SECONDS (11.7-14.9)
== END 2025-06-15 18:00 | disposition home or self-care (01) ==
LOC: LAB 08:45
PROVIDERS: PCP Internal Medicine; Referring Provider Internal Medicine Cardiovascular Disease; Visit Provider Internal Medicine Cardiovascular Disease
DX: I48.0 Paroxysmal atrial fibrillation (principal); Z79.01 Long term (current) use of anticoagulants
CPT/HCPCS: 36415; 85610

== ENCOUNTER 2025-07-09 07:23 | Outpatient (RCR) | payer OTHER, SELFPAY ==
[2025-07-09 08:20] LABS: Prothrombin Time (Protime)PT. 25.2 SECONDS (11.7-14.9)
== END 2025-07-09 18:00 | disposition home or self-care (01) ==
LOC: LAB 07:23
PROVIDERS: PCP Internal Medicine; Referring Provider Internal Medicine Cardiovascular Disease; Visit Provider Internal Medicine Cardiovascular Disease
DX: Z79.01 Long term (current) use of anticoagulants (principal); I48.0 Paroxysmal atrial fibrillation
CPT/HCPCS: 36415; 85610

== ENCOUNTER 2025-08-06 07:26 | Outpatient (RCR) | payer OTHER, SELFPAY ==
[2025-08-06 09:44] LABS: Prothrombin Time (Protime)PT. 26.8 SECONDS (11.7-14.9)
== END 2025-08-15 18:00 | disposition home or self-care (01) ==
LOC: LAB 07:26
PROVIDERS: PCP Internal Medicine; Referring Provider Internal Medicine Cardiovascular Disease; Visit Provider Internal Medicine Cardiovascular Disease
DX: Z79.01 Long term (current) use of anticoagulants (principal); I48.0 Paroxysmal atrial fibrillation
CPT/HCPCS: 36415; 85610

== ENCOUNTER 2025-09-03 07:28 | Outpatient (RCR) | payer OTHER, SELFPAY ==
[2025-09-03 08:04] LABS: Prothrombin Time (Protime)PT. 31.4 SECONDS (11.7-14.9)
== END 2025-09-03 18:00 | disposition home or self-care (01) ==
LOC: LAB 07:28
PROVIDERS: PCP Internal Medicine; Referring Provider Internal Medicine Cardiovascular Disease; Visit Provider Internal Medicine Cardiovascular Disease
DX: Z79.01 Long term (current) use of anticoagulants (principal); I48.0 Paroxysmal atrial fibrillation
CPT/HCPCS: 36415; 85610